=== PATIENT | female | born 1975 | race Caucasian/White ===

== ENCOUNTER → 2018-05-10 | Outpatient (CLI) | payer BC, MEDICARE ==
[2018-05-10 15:38] VITALS: BP 150/100; PULSE 93; RESP 18; TEMP 98.2; BMI 48.4
--- NOTE | 2018-07-04 10:03 | P.PN ---
Subjective Progress Note Date: 05/10/18 DATE OF SERVICE: 05/10/2018 CHIEF COMPLAINT: Morbid obesity. HISTORY OF PRESENT ILLNESS: Naz Christine is a 42-year-old female who comes in with long-standing morbid obesity. As a result of her obesity, she has developed hypertensive heart disease. She has completed medical supervised weight loss. She has completed upper endoscopy. She does report gastroesophageal reflux disease. She presents looking into the gastric bypass. At height of 5 feet 4 inches, his ideal body weight is 144 pounds. Her highest personal weight was 296 pounds. Her body mass index was 50.9. She comes in 281 pounds from 252 pounds, 1 year ago. She has 29 pound weigh gain. Her body mass index is 48.4. She is 137 pounds overweight. PAST MEDICAL HISTORY: 1. Morbid obesity. 2. Body mass index prior 50.9. 3. Osteoarthritis of the knees. 4. Plantar fasciitis 5. Osteoarthritis of the lower back. 6. Gastroesophageal reflux disease 7. Irritable bowel syndrome 8. Obstructive sleep apnea 9. Kidney stones 10. Diabetes type 2 11. Hypothyroidism 12. Attention deficit disorder 13. Depression 14. Bilateral lower extremity neuropathy 15. Memory disorder 16. Hypertensive heart disease. PAST SURGICAL HISTORY: 1. section 2. Cholecystectomy 3. Renal stents 4. Bladder surgery HOME MEDICATIONS: 1. Glucophage 2. Armor thyroid 3. Ritalin 4. Namenda 5. Aricept 6. Celexa ALLERGIES: 1. Codeine 2. Levofloxacin 3. Morphine 4. Sulfa SOCIAL HISTORY: No active tobacco use. Former tobacco use. FAMILY HISTORY: No family history of ulcerative colitis disease or Crohn's disease. Family history of morbid obesity. No reports of stomach or esophageal cancer. Family history of diabetes type 2. She denies stomach or esophageal cancer. No personal or family history of inflammatory bowel disease. She has lupus in her niece. Thyroid cancer. REVIEW OF ORGAN SYSTEMS: CONSTITUTIONAL: At height of 5 feet 4 inches, ideal body weight is 144 pounds. Her highest personal weight was 296 pounds. Her body mass index was 50.9. HEENT: Denies any active troubles with vision or hearing. No troubles with swallowing. ENDOCRINE: Has diabetes. Has hypothyroidism. CARDIOVASCULAR: No reports of palpitations or heart attacks or chest pain. RESPIRATORY: Has daytime somnolence. No asthma. Has sleep apnea. GI: Denies any bright red blood per rectum. No diarrhea or constipation. MUSCULOSKELETAL: Has lower back pain and joint pain. Has osteoarthritis of the knees. NEURO: No headaches. No seizure disorders. PSYCH: Has depression. No suicidal ideation. RHEUMATOLOGIC: No lupus. No rheumatoid arthritis. HEMATOLOGIC: Denies any abnormal bleeding or bruising. No personal history of DVTs. SKIN: No rash. No skin cancer. PHYSICAL EXAM: VITAL SIGNS: Height 5 foot 4 inches, weight 281 pounds. BMI 48.4 Vital Signs Temp 98.2 F 05/10/18 15:31 Pulse 93 05/10/18 15:31 Resp 18 05/10/18 15:31 BP 150/100 05/10/18 15:31 Pulse Ox GENERAL: Well-developed in no acute distress. HEENT: No scleral icterus. Extraocular movements grossly intact. Hears conversational speech. No nasal drainage. NECK: Supple without lymphadenopathy. CHEST: Nonlabored respirations with equal bilateral excursions. CARDIOVASCULAR: Regular rate and regular rhythm. Distal 2+ pulses. ABDOMEN: Obese, soft, nontender, nondistended. MUSCULOSKELETAL: No clubbing, cyanosis. Gross strength 5/5 distal lower extremities. No pre-tibial pitting edema. NEURO: No focal or lateralizing signs. Cranial nerves 2 through 12 grossly within normal limits. PSYCH: Appropriate affect. Alert and oriented to person, place and time. SKIN: Good skin turgor. Well perfused. STUDIES: EGD Findings from [place] shows Hill grade 2 and chronic gastritis. PATHOLOGY: No H. pylori gastritis LABS: LFTs elevated. Vitamin D low. TSH low. ASSESSMENT: 1. Morbid obesity due to excess calories. 2. Body mass index prior 50.9 down to 48.4. 3. Osteoarthritis of the knees. 4. Plantar fasciitis 5. Osteoarthritis of the lower back. 6. Gastroesophageal reflux disease 7. Irritable bowel syndrome 8. Obstructive sleep apnea 9. Kidney stones 10. Diabetes type 2 11. Hypothyroidism 12. Attention deficit disorder 13. Depression 14. Bilateral lower extremity neuropathy 15. Memory disorder 16. Hypertensive heart disease 17. Vitamin D deficiency. PLAN: 1. Bariatric options between a sleeve, band and a Mino-en-Y gastric bypass were reviewed in detail. The patient elected for a gastric bypass. Robotic assisted approach described. 2. The [place] [facility] Data was also reviewed with benefits and risks as described. 3. An 8 page second-generation bariatric consent form was reviewed in detail including potential of bleeding, infection, leaks, adequate weight loss, nutritional deficiencies which the patient demonstrated understanding of the risks. 4. A 2 week high-protein low caloric 800 kcal diet described to address hepatomegaly. 5. Preoperative labs including complete metabolic panel and CBC with type and screen recommended. 6. DVT prophylaxis per [place] [facility]. 7. Antibiotic prophylaxis. 8. Inpatient hospitalization anticipated for more than 2 nights. 9. All questions and concerns were addressed with the patient. Objective - Vital Signs Vital signs: Vital Signs Temp 98.2 F 05/10/18 15:31 Pulse 93 05/10/18 15:31 Resp 18 05/10/18 15:31 BP 150/100 05/10/18 15:31 Pulse Ox
== END | disposition home or self-care (01) ==
LOC: BARWHC3 14:43
PROVIDERS: ATTEND Surgery Plastic and Reconstructive Surgery
DX: E66.01 Morbid (severe) obesity due to excess calories (principal); M17.0 Bilateral primary osteoarthritis of knee; M72.2 Plantar fascial fibromatosis; M47.816 Spondylosis without myelopathy or radiculopathy, lumbar region; K21.9 Gastro-esophageal reflux disease without esophagitis; K58.9 Irritable bowel syndrome, unspecified; G47.33 Obstructive sleep apnea (adult) (pediatric); N20.0 Calculus of kidney; E11.9 Type 2 diabetes mellitus without complications; E03.9 Hypothyroidism, unspecified; F98.8 Other specified behavioral and emotional disorders with onset usually occurring in childhood and adolescence; F32.9 Major depressive disorder, single episode, unspecified; G62.9 Polyneuropathy, unspecified; I11.9 Hypertensive heart disease without heart failure; E55.9 Vitamin D deficiency, unspecified; R41.3 Other amnesia; Z68.42 Body mass index [BMI] 45.0-49.9, adult; Z87.891 Personal history of nicotine dependence; Z79.84 Long term (current) use of oral hypoglycemic drugs; Z79.899 Other long term (current) drug therapy; Z88.1 Allergy status to other antibiotic agents; Z88.2 Allergy status to sulfonamides; Z88.5 Allergy status to narcotic agent
CPT/HCPCS: 99211

== ENCOUNTER → 2018-06-30 | Outpatient (CLI) | payer BC, MEDICARE ==
[2018-06-30 07:31] LABS: Basophils % (A) 1 %; Eosinophils # (A) 0.1 k/uL (0-0.7); Eosinophils % (A) 2 %; HCT 44.4 % (34.0-46.0); HGB 14.8 gm/dL (11.4-16.0); Lymphocytes # (A) 2.8 k/uL (1.0-4.8); Lymphocytes % (A) 41 %; MCH 27.6 pg (25.0-35.0); MCHC 33.4 g/dL (31.0-37.0); MCV 82.8 fL (80.0-100.0); Mean Platelet Volume 6.9; Monocytes # (A) 0.4 k/uL (0-1.0); Monocytes % (A) 6 %; Neutrophils # (A) 3.2 k/uL (1.3-7.7); Neutrophils % (A) 48 %; Platelet Count 272 k/uL (150-450); RBC 5.36 m/uL (3.80-5.40); RDW 13.6 % (11.5-15.5); WBC 6.8 k/uL (3.8-10.6)
[2018-06-30 07:43] LABS: ALT 62 U/L (9-52); AST 39 U/L (14-36); Albumin 4.8 g/dL (3.5-5.0); Alkaline Phosphatase 67 U/L (38-126); Anion Gap 10 mmol/L; Blood Urea Nitrogen 19 mg/dL (7-17); Calcium 9.8 mg/dL (8.4-10.2); Carbon Dioxide 28 mmol/L (22-30); Chloride 102 mmol/L (98-107); Glucose 91 mg/dL (74-99); Potassium 4.2 mmol/L (3.5-5.1); Sodium 140 mmol/L (137-145); Total Protein 7.7 g/dL (6.3-8.2)
== END | disposition home or self-care (01) ==
LOC: LABPAT 07:00
PROVIDERS: ATTEND Surgery Plastic and Reconstructive Surgery
DX: Z01.810 Encounter for preprocedural cardiovascular examination (principal); Z01.812 Encounter for preprocedural laboratory examination
CPT/HCPCS: 80053; 85025; 93005

== ENCOUNTER 2018-07-10 07:00 | Inpatient (IN) | payer BC, MEDICARE ==
--- NOTE | 2018-07-09 14:26 | P.GSHP ---
History of Present Illness H&P Date: 07/10/18 DATE OF SERVICE: 07/10/2018 CHIEF COMPLAINT: Morbid obesity. HISTORY OF PRESENT ILLNESS: Naz Christine is a 42-year-old female who comes in with long-standing morbid obesity. As a result of her obesity, she has developed hypertensive heart disease. She has completed medical supervised weight loss. She has completed upper endoscopy. She does report gastroesophageal reflux disease. She presents looking into the gastric bypass. At height of 5 feet 4 inches, his ideal body weight is 144 pounds. Her highest personal weight was 296 pounds. Her body mass index was 50.9. She comes in 281 pounds from 252 pounds, 1 year ago. She has 29 pound weigh gain. Her body mass index is 48.4. She is 137 pounds overweight. PAST MEDICAL HISTORY: 1. Morbid obesity. 2. Body mass index prior 50.9. 3. Osteoarthritis of the knees. 4. Plantar fasciitis 5. Osteoarthritis of the lower back. 6. Gastroesophageal reflux disease 7. Irritable bowel syndrome 8. Obstructive sleep apnea 9. Kidney stones 10. Diabetes type 2 11. Hypothyroidism 12. Attention deficit disorder 13. Depression 14. Bilateral lower extremity neuropathy 15. Memory disorder 16. Hypertensive heart disease. PAST SURGICAL HISTORY: 1. section 2. Cholecystectomy 3. Renal stents 4. Bladder surgery HOME MEDICATIONS: 1. Glucophage 2. Armor thyroid 3. Ritalin 4. Namenda 5. Aricept 6. Celexa ALLERGIES: 1. Codeine 2. Levofloxacin 3. Morphine 4. Sulfa SOCIAL HISTORY: No active tobacco use. Former tobacco use. FAMILY HISTORY: No family history of ulcerative colitis disease or Crohn's disease. Family history of morbid obesity. No reports of stomach or esophageal cancer. Family history of diabetes type 2. She denies stomach or esophageal cancer. No personal or family history of inflammatory bowel disease. She has lupus in her niece. Thyroid cancer. REVIEW OF ORGAN SYSTEMS: CONSTITUTIONAL: At height of 5 feet 4 inches, ideal body weight is 144 pounds. Her highest personal weight was 296 pounds. Her body mass index was 50.9. HEENT: Denies any active troubles with vision or hearing. No troubles with swallowing. ENDOCRINE: Has diabetes. Has hypothyroidism. CARDIOVASCULAR: No reports of palpitations or heart attacks or chest pain. RESPIRATORY: Has daytime somnolence. No asthma. Has sleep apnea. GI: Denies any bright red blood per rectum. No diarrhea or constipation. MUSCULOSKELETAL: Has lower back pain and joint pain. Has osteoarthritis of the knees. NEURO: No headaches. No seizure disorders. PSYCH: Has depression. No suicidal ideation. RHEUMATOLOGIC: No lupus. No rheumatoid arthritis. HEMATOLOGIC: Denies any abnormal bleeding or bruising. No personal history of DVTs. SKIN: No rash. No skin cancer. PHYSICAL EXAM: VITAL SIGNS: Height 5 foot 4 inches, weight 281 pounds. BMI 48.4 GENERAL: Well-developed in no acute distress. HEENT: No scleral icterus. Extraocular movements grossly intact. Hears conversational speech. No nasal drainage. NECK: Supple without lymphadenopathy. CHEST: Nonlabored respirations with equal bilateral excursions. CARDIOVASCULAR: Regular rate and regular rhythm. Distal 2+ pulses. ABDOMEN: Obese, soft, nontender, nondistended. MUSCULOSKELETAL: No clubbing, cyanosis. Gross strength 5/5 distal lower ex tremities. No pre-tibial pitting edema. NEURO: No focal or lateralizing signs. Cranial nerves 2 through 12 grossly within normal limits. PSYCH: Appropriate affect. Alert and oriented to person, place and time. SKIN: Good skin turgor. Well perfused. STUDIES: EGD Findings from [place] shows Hill grade 2 and chronic gastritis. PATHOLOGY: No H. pylori gastritis LABS: LFTs elevated. Vitamin D low. TSH low. ASSESSMENT: 1. Morbid obesity due to excess calories. 2. Body mass index prior 50.9 down to 48.4. 3. Osteoarthritis of the knees. 4. Plantar fasciitis 5. Osteoarthritis of the lower back. 6. Gastroesophageal reflux disease 7. Irritable bowel syndrome 8. Obstructive sleep apnea 9. Kidney stones 10. Diabetes type 2 11. Hypothyroidism 12. Attention deficit disorder 13. Depression 14. Bilateral lower extremity neuropathy 15. Memory disorder 16. Hypertensive heart disease 17. Vitamin D deficiency. PLAN: 1. Bariatric options between a sleeve, band and a Mino-en-Y gastric bypass were reviewed in detail. The patient elected for a gastric bypass. Robotic assisted approach described. 2. The [place] [facility] Data was also reviewed with benefits and risks as described. 3. An 8 page second-generation bariatric consent form was reviewed in detail including potential of bleeding, infection, leaks, adequate weight loss, nutritional deficiencies which the patient demonstrated understanding of the risks. 4. A 2 week high-protein low caloric 800 kcal diet described to address hepatomegaly. 5. Preoperative labs including complete metabolic panel and CBC with type and screen recommended. 6. DVT prophylaxis per [place] [facility]. 7. Antibiotic prophylaxis. 8. Inpatient hospitalization anticipated for more than 2 nights. 9. All questions and concerns were addressed with the patient. Past Medical History Past Medical History: Diabetes Mellitus, GERD/Reflux, Memory Impairment, N eurologic Disorder, Osteoarthritis (OA), Sleep Apnea/CPAP/BIPAP, Thyroid Disorder Additional Past Medical History / Comment(s): Takes Namenda and Ritalin to help her focus due to memory loss-cognitive impariment. , hx. arrythmia & frequent PVC's, kidney/uric acid stones, bilateral leg neuropathy, joint pain, uses CPAP, has severe TMJ, fatty liver History of Any Multi-Drug Resistant Organisms: None Reported Past Surgical History: Bladder Surgery, Section, Cholecystectomy Additional Past Surgical History / Comment(s): C/S x5, bladder surgery with mesh implant, renal stents, EGD Past Anesthesia/Blood Transfusion Reactions: No Reported Reaction Additional Past Anesthesia/Blood Transfusion Reaction / Comment(s): No transfusions to date, has severe TMJ, states limited ROM w/jaw-has never had any intubation problems that she has been told or special equipment Smoking Status: Former smoker - Past Family History Mother Family Medical History: Cancer, Coronary Artery Disease (CAD), Diabetes Mellitus, Thyroid Disorder Additional Family Medical History / Comment(s): Type 2 Dm, Piagets Disease, Breast cancer survivor Sister(s) Family Medical History: Diabetes Mellitus, Thyroid Disorder Additional Family Medical History / Comment(s): sister #1: Type 2 DM hypothyroidism. Sister 2: Thyroid cancer (and hyperthyroidism) Father Family Medical History: Cancer, Coronary Artery Disease (CAD) Additional Family Medical History / Comment(s): lung cancer survivor (mesothelioma from asbestos lining ships in [place]) Medications and Allergies Home Medications Medication Instructions Recorded Confirmed Type Citalopram Hydrobromide [CeleXA] 20 mg PO DAILY 03/17/17 06/30/18 History Donepezil [Aricept] 10 mg PO HS 03/17/17 06/30/18 History Memantine [Namenda] 20 mg PO BID 03/17/17 06/30/18 History Methylphenidate HCl [Ritalin] 15 mg PO PC-BRKFST 03/17/17 06/30/18 History Methylphenidate HCl [Ritalin] 15 mg PO PC-LUNCH 03/17/17 06/30/18 History Thyroid,Pork [[place] Thyroid] 180 mg PO DAILY 03/17/17 06/30/18 History metFORMIN HCL [Glucophage] 500 mg PO TID 03/17/17 06/30/18 History Omeprazole [PriLOSEC] 40 mg PO AC-BRKFST 12/12/17 06/30/18 History Allergies Allergy/AdvReac Type Severity Reaction Status Date / Time codeine Allergy Rash/Hives Verified 06/30/18 11:22 levofloxacin [From Levaquin] Allergy Swelling Verified 06/30/18 11:22 morphine Allergy Rash/Hives Verified 06/30/18 11:22 Sulfa (Sulfonamide Allergy Anaphylaxis Verified 06/30/18 11:22 Antibiotics)
[~2018-07-10 07:00] MED LIST: CHLORHEXIDINE GLUCONATE 15 ML CUP MUCOUS MEM ONE; DEXAMETHASONE SOD PHOSPHATE 10 MG/ML 1 ML VIAL IV ONE; ENOXAPARIN 40 MG/0.4 ML SYRINGE SQ STA; LIDOCAINE 1% 20 ML VIAL (10MG/ML) FOR IV START INTRADERMA PRN; MIDAZOLAM 2 MG/2 ML VIAL IV PRN; PANTOPRAZOLE 40 MG/10 ML VIAL IV STA; ceFAZolin 3 GM in SODIUM CHLORIDE 0.9% 100 ML IVPB ONE; fentaNYL (PF) 50 MCG/ML 2 ML AMP IV PRN
[2018-07-10 13:34] LABS: Glucose,Whole Blood 80 mg/dL (75-99)
[2018-07-10] MEDS: LACTATED RINGERS 1,000 ML IV SCH ×2 (14:01→22:02)
[2018-07-10] MEDS ORDERED: ONDANSETRON 4 MG/2 ML VIAL IVP ONE (14:06)
[2018-07-10] MEDS ORDERED: HYDROmorphone (PF) 1 MG/ML ONE (14:45)
[2018-07-10] MEDS ORDERED: MIDAZOLAM 2 MG/2 ML VIAL ONE (14:45)
[2018-07-10] MEDS ORDERED: GLYCOPYRROLATE 0.2 MG/ML 2 ML VIAL ONE (14:45)
[2018-07-10] MEDS ORDERED: PROPOFOL 10 MG/ML 20 ML VIAL IV ONE (14:45)
[2018-07-10] MEDS ORDERED: ONDANSETRON 4 MG/2 ML VIAL ONE (14:45)
[2018-07-10] MEDS ORDERED: fentaNYL (PF) 50 MCG/ML 2 ML AMP ONE (14:45)
[2018-07-10] MEDS ORDERED: NEOSTIGMINE 1 MG/ML 10 ML VIAL ONE (14:45)
[2018-07-10] MEDS ORDERED: SUCCINYLCHOLINE CHLORIDE 100 MG/5 ML SYR IV ONE (14:45)
[2018-07-10] MEDS ORDERED: ROCURONIUM BROMIDE 10 MG/ML 10 ML VIAL IV ONE (14:45)
[2018-07-10] MEDS ORDERED: LIDOCAINE 1% INJ 10MG/ML (20 ML MDV) ONE (14:45)
[2018-07-10] MEDS ORDERED: PHENYLEPHRINE-0.9% NACL SYG 1 MG/10 ML SYRINGE ONE (14:45)
[2018-07-10] MEDS ORDERED: BUPIVACAIN-EPI 0.25%-1:200,000 30 ML VIAL SQ ONE (15:34)
[2018-07-10] MEDS ORDERED: LACTATED RINGERS 1,000 ML IV ONE ×2 (16:35→17:04)
[2018-07-10] MEDS ORDERED: diphenhydrAMINE 50 MG/ML 1 ML VIAL IVP PRN (18:18)
[2018-07-10] MEDS ORDERED: NALOXONE 0.4 MG/ML 1 ML VIAL IV PRN (18:18)
--- NOTE | 2018-07-10 18:25 | P.OP ---
Date of Procedure: 07/10/18 Description of Procedure: SURGEON: IRINA GOMEZ MD PREOPERATIVE DIAGNOSES: 1. Morbid obesity due to excess calories. 2. Body mass index prior 50.9 down to 48.0. 3. Osteoarthritis of the knees. 4. Plantar fasciitis 5. Osteoarthritis of the lower back. 6. Gastroesophageal reflux disease 7. Irritable bowel syndrome 8. Obstructive sleep apnea 9. Kidney stones 10. Diabetes type 2 11. Hypothyroidism 12. Attention deficit disorder 13. Depression 14. Bilateral lower extremity neuropathy 15. Memory disorder 16. Hypertensive heart disease 17. Vitamin D deficiency. POSTOPERATIVE DIAGNOSES: 1. Morbid obesity due to excess calories. 2. Body mass index prior 50.9 down to 48.0. 3. Osteoarthritis of the knees. 4. Plantar fasciitis 5. Osteoarthritis of the lower back. 6. Gastroesophageal reflux disease 7. Irritable bowel syndrome 8. Obstructive sleep apnea 9. Kidney stones 10. Diabetes type 2 11. Hypothyroidism 12. Attention deficit disorder 13. Depression 14. Bilateral lower extremity neuropathy 15. Memory disorder 16. Hypertensive heart disease 17. Vitamin D deficiency. 18. Lower intra-abdominal peritoneal adhesions OPERATION: 1. Robotic assisted da Demian Xi laparoscopic Dante-en-Y gastric bypass, 100 cm antecolic antegastric Dante limb, with 21 mm EEA. 2. Intraoperative esophagogastrojejunoscopy. ANESTHESIA: GETA and local ESTIMATED BLOOD LOSS: 20 mL SPECIMENS REMOVED: None. COMPLICATIONS: NONE. INDICATIONS: Naz Christine is a 42-year-old female who comes in with long- standing morbid obesity. As a result of her obesity, she has developed hypertensive heart disease. She has completed medical supervised weight loss. She presents looking into the gastric bypass. At height of 5 feet 4 inches, his ideal body weight is 144 pounds. Her highest personal weight was 296 pounds. Her body mass index was 50.9. She comes in 270 pounds from 281 pounds, 1 month ago. She has lost 11 pounds in 1 month . Her body mass index is 46.5 She is 112 pounds overweight. She is looking into the gastric bypass. A second-generation bariatric consent form was described in detail including the possibility of protein malnutrition, leaks, gastrojejunal stricture, venous thrombosis, need for further surgery for which she demonstrated understanding. Benefits and risks of the procedure were described at length. Informed consent was obtained. DESCRIPTION: The patient was brought into the operating room theater. She was placed supine. She had received Lovenox subcutaneously for DVT prophylaxis. Additionally she Peridex oral solution as an oral decontaminant was placed per anesthesia. After general induction, the abdomen was prepped and draped in standard sterile fashion. Ioban draping was placed along the abdomen. A robotic da Demian Xi system was prepped and primed. The xiphoid to umbilicus was measured of 26 cm. Incisions were proposed at 15 cm from the xiphoid. Proposed port sites were marked with indelible marker along the anterior axillary line bilaterally, mid clavicular line bilaterally with each port marked 10 cm from each other. The robotic stapler port was marked for the right midclavicular line including along the left midclavicular line. A 5 mm 0 degrees laparoscopic trocar entry was performed along the left upper quadrant. The abdomen was insufflated to 15 mmHg pressure, which she tolerated well. Diagnostic laparoscopy demonstrated no injury to bowel, viscera, or mesentery. The liver was smooth and unremarkable. An 8 mm camera port was placed left lateral to the umbilicus at the epigastrium, 15 cm distal to the xiphoid. Next, 12-mm robot stapler port was placed along the right mid abdomen. An 12 mm port was exchanged along the left upper quadrant. An 8 mm port was placed on the left lateral abdominal wall under direct visualization Please note that the ports were placed 18 to 20 cm away from the target anatomy of the stomach. Care was taken to check that each robotic arm was safely away from collision with the bed or the patient. At the epigastrium, a medium sized Travis liver retractor was placed under direct visualization with the Iron Chicken Vaccinator placed under the right shoulder of the patient. The patient was repositioned in reverse Trendelenburg position at 16-degrees after lowering the bed. The robot was docked over the patient. Using grasper for arm 3, a grasper for arm 1, including vessel sealer for arm 4, the robotic system was docked and primed as described. Instruments were interchanged by the loan assistant including endoscissors, the needle starting gate driver, and stapler. I had sat at the console. Diagnostic laparoscopy demonstrates severe omental to abdominal wall adhesions along the midline from previous multiple sections. As a result, the transverse mesocolon was separately dissected to visualize the ligament of Treitz. Next, the transverse mesocolon was reflected into the upper abdomen after dividing the mesentery and preparing for the jejunojejunostomy portion of the case. The ligament of Treitz was identified and measured 70 cm antegrade and marked using 3-0 Silk. The jejunum was divided at the 60 cm point using 60-mm white loads above the suture measurement. The biliopancreatic limb was held in place. The Dante limb was measured 100 cm in an antegrade fashion to avoid tension along the proposed gastrojejunal anastomosis. At 100 cm along the anti-mesenteric border of the Dante limb, a jejunojejunostomy was proposed whereby enterotomies were created along the biliopancreatic limb including the Dante limb using a Bovie cautery. A stay suture of 3-0 Slik was placed to align and create the anastomosis. The enterotomies along the anti-mesenteric borders were created followed by unidirectional fire from the patient's right side using 60 mm white load Smart technology robotic stapler. The jejunojejunostomy was found to be hemostatic. The enterotomy was closed after horizontal mattress stitch of 3-0 silk used to elevate the enterotomy followed by closure with the robotic stapler 60-mm blue load. The jejunal limb was temporarily tacked along the left upper quadrant. Attention was now brought to the creation of the gastrojejunostomy. Along the lesser curvature of the stomach between the second and third veins, dissection was made along the retrogastric space to allow first firing of the robotic staple. Blue loads of 60 mm green staplers were used to divide the stomach to create the gastric pouch. The patient was then prepared for placement of an Orvil. The patient was Mallampati 4. A 21-mm Orvil was selected for placement by the nurse switchboard wirer. The Orvil tubing was placed anterior to the staple line of the gastric pouch and brought out through the left inferior lateral port. I re-scrubbed into the case. The robotic arms were temporarily undocked. The Orvil was then carefully and successfully navigated with the help of the nurse switchboard wirer into the gastric pouch. The sutures were identified and divided. The tubing was from the 21 mm anvil. As the Orvil had been placed, the blind jejunal limb was brought proximally into the upper abdomen. No torsion was found upon the Dante limb. Minimal tension was identified as the limb was brought along the upper abdomen. The blind jejunal limb was previously opened using endo-scissors with cautery. The 21-mm EEA stapler was brought through the left anterior lateral port site from the left side. The EEA stapler was brought through the open jejunal limb and its needle was deployed at the antimesenteric border where the anvil were mated for approximately 1 minute upon firing. The stapler was removed after irrigating the shaft of the instrument with warm normal saline. Donuts were found to be intact and on both sides and thin along the stomach sides. The da Demian Xi robot arms were then re-docked. I sat at the console. The open jejunal limb defect was closed using 60 mm white loads after releasing any tension from the blind jejunal limb. Care was taken to avoid any long blind limb to avoid candycane syndrome. Reinforcement sutures were placed along the gastrojejunal anastomosis and placed along the 9, 12 and 3 o'clock position using 3-0 Vicryl. The Mcgovern and jejunojejunostomy mesenteric defects were obliterated by her intra-abdominal fat. I then went to the head of the bed to perform the esophagogastrojejunoscopy and a leak test. An Olympus gastroscope was passed along the posterior oropharynx which was unremarkable for any injury to the vocal cords. The scope was passed down to the proximal portion of the pouch, whereby no active bleeding was encountered. Excellent visualization of the gastrojejunostomy anastomosis, including the Dante limb was encountered with endoscopic image obtained. The anastomosis was found to be patent. The gastrointestinal tract was desufflated. No evidence of intraoperative leak was encountered as the gastric pouch and anastomosis were submerged under normal saline solution. The robot was then undocked. I then went back to the bedside of the patient, whereby with coordinated effort of the loan assistant, irrigation was aspirated from the upper abdominal cavity. Tisseel was placed circumferentially over the anastomosis of the gastrojejunostomy. The fascial defect of the EEA stapler was closed using Ramos Traylor and 0 Vicryl. All instruments and pneumoperitoneum were evacuated from the abdominal cavity. The port correlating with the EEA stapler device was cleansed with normal saline solution and hydrogen peroxide. The rest of incisions were reapproximated using 4-0 Monocryl in an interrupted subcuticular fashion. Local anesthetic was infiltrated along the skin for postop analgesia. Liquid glue was applied to the skin. OptiFoam dressing was placed along the EEA stapler site. At the end of the procedure, needle, sponge and instrument count had been verified correct by the garage door technician. She had tolerated the procedure well and was extubated and taken to the postanesthesia unit in stable condition. Intraoperative findings were described to the patient's family who were very pleased with the level of care. Operative Findings: 1. Bypass performed using 100 cm dante limb secondary to avoid increased tension at 150 cm. 2. Reinforcement sutures were placed along the gastrojejunal anastomosis at 9, 12 and 3 o'clock position using 3-0 Polysorb 3. Donuts intact, thin stomach 4. Severe lower abdominal adhesions from previous multiple C-sections undisturbed 5. Total of 9 staple loads, 2 whites, 3 blues, 4 green 60 mm staplers 6. Mallampati 4 requiring 21 mm anvil 7. Biliopancreatic limb 70 cm 8. Copeland defect and jejunojejunostomy defect obliterated by moderate intra- abdominal fat. 9. Leak test negative with gastrojejunal anastomosis patent and hemostatic. 10. No fatty liver disease or hepatomegaly 11. Console time 93 minutes
[2018-07-10] MEDS: ONDANSETRON 4 MG/2 ML VIAL IVP PRN (18:52)
[2018-07-10 19:26] LABS: Glucose,Whole Blood 214 mg/dL (75-99)
[2018-07-10] MEDS ORDERED: INSULIN ASPART (NovoLOG) 100 UNIT/ML VIAL SQ ONE (19:28)
[2018-07-10] MEDS ORDERED: SODIUM CHLORIDE 0.9% 2,000 ML IV ONE ×2 (20:24→22:54)
[2018-07-10] MEDS: ALBUTEROL NEBULIZED 2.5 MG/3 ML INHALATION SCH (21:09)
[2018-07-10] MEDS: INSULIN ASPART (NovoLOG) 100 UNIT/ML VIAL SQ SCH (22:03)
[2018-07-10 22:12] LABS: Basophils # (A) 0.1 k/uL (0-0.2); Basophils % (A) 0 %; Eosinophils # (A) 0.1 k/uL (0-0.7); Eosinophils % (A) 1 %; HCT 33.1 % (34.0-46.0); Hypochromasia Slight; Lymphocytes % (A) 10 %; MCH 27.6 pg (25.0-35.0); MCHC 31.9 g/dL (31.0-37.0); MCV 86.4 fL (80.0-100.0); Mean Platelet Volume 8.6; Monocytes # (A) 0.3 k/uL (0-1.0); Monocytes % (A) 2 %; Neutrophils # (A) 17.8 k/uL (1.3-7.7); Neutrophils % (A) 87 %; Platelet Count 306 k/uL (150-450); RBC 3.83 m/uL (3.80-5.40); RDW 14.8 % (11.5-15.5); WBC 20.5 k/uL (3.8-10.6)
[2018-07-10 22:16] LABS: HGB 10.6 gm/dL (11.4-16.0)
[2018-07-10] MEDS: ACETAMINOPHEN IV (For NPO) 1,000 MG in EMPTY BAG 1 BAG IVPB SCH (22:30)
[2018-07-10] MEDS: 0.9% NACL WITH KCL 20 MEQ/L 1,000 ML IV SCH (22:30)
[2018-07-10] MEDS ORDERED: IOPAMIDOL-300 CONTRAST 30 ML VIAL (ORAL USE) PO PRN (23:05)
--- NOTE | 2018-07-10 23:05 | P.PN ---
Subjective Progress Note Date: 07/10/18 CHIEF COMPLAINT: Morbid obesity HISTORY OF PRESENT ILLNESS: The patient is a 43-year-old female postop day 0 status post gastric bypass. I was notified for persistent hypotension systolic blood pressures of 70s to 80s. Additional IV fluid boluses overnight. Stat hemoglobin demonstrates 10.0. No obvious signs of bleeding. Patient denies any bilateral shoulder pain. No diffuse peritonitis. ROS: No reports of nausea and vomiting. No bowel movements. No fevers or chills. No new chest pain. No productive sputum PHYSICAL EXAM: VITAL SIGNS: Reviewed CONSTITUTIONAL: Well developed and in no acute distress. EYES: Conjuctivae without sclera icterus. Extraocular movements grossly intact. HEAD, EARS, NOSE, THROAT: Moist buccal mucosa. Head is atraumatic, normocephalic. Hears conversational speech. No nasal drainage. NECK: Supple. No thyroidomegaly. RESPIRATORY: Non-labored respirations and equal bilateral excursions. CARDIOVASCULAR: Tachycardia ABDOMEN: Incisions clean dry and intact. Soft. No peritonitis. Minimal tenderness left upper quadrant incision MUSCULOSKELETAL: No gross deformity of the lower extremities noted. No clubbing. No cyanosis. SKIN: Good skin turgor. Well perfused. NEUROLOGIC: Cranial nerves I through XII grossly intact. No focal or lateralizing signs. PSYCH: Somnolent and lethargic. CLINCAL LABS: White blood cell count elevated. Hemoglobin less than 11.0 ASSESSMENT: 1. Morbid obesity status post gastric bypass PLAN: 1. Additional 2 L normal saline bolus. 2. Patient typed and screened, may need blood. 3. Possible CT of the abdomen pelvis for persistent hypotension 4. Lovenox discontinued. Only SCDs for risk of bleeding. Objective - Vital Signs Vital signs: Vital Signs Temp 97.9 F 07/10/18 18:25 Pulse 99 07/10/18 19:10 Resp 16 07/10/18 19:10 BP 109/70 07/10/18 19:10 Pulse Ox 98 07/10/18 21:10 Intake & Output 07/10/18 07/10/18 07/11/18 06:59 18:59 06:59 Intake Total 2500 500 Output Total 270 225 Balance 2230 275 Intake: IV 2500 500 Output: Urine 250 225 Estimated Blood Loss 20 - Labs CBC & Chem 7: 07/10/18 20:06 Labs: Abnormal Lab Results - Last 24 Hours (Table) 07/10/18 07/10/18 Range/Units 19:23 20:06 WBC 20.5 H (3.8-10.6) k/uL Hgb 10.6 L D (11.4-16.0) gm/dL Hct 33.1 L (34.0-46.0) % Neutrophils # 17.8 H (1.3-7.7) k/uL POC Glucose (mg/dL) 214 H (75-99) mg/dL Assessment and Plan (1) Morbid obesity due to excess calories Current Visit: Yes Status: Acute Code(s): E66.01 - MORBID (SEVERE) OBESITY DUE TO EXCESS CALORIES SNOMED Code(s): 854010773 (2) Morbid obesity with BMI of 45.0-49.9, adult Current Visit: Yes Status: Acute Code(s): E66.01 - MORBID (SEVERE) OBESITY DUE TO EXCESS CALORIES; Z68.42 - BODY MASS INDEX (BMI) 45.0-49.9, ADULT SNOMED Code(s): 418506014 (3) Hypotension Current Visit: Yes Status: Acute Code(s): I95.9 - HYPOTENSION, UNSPECIFIED SNOMED Code(s): 16912808
--- NOTE | 2018-07-10 23:46 | P.PN ---
Progress Note - Text Progress Note Date: 07/10/18 I personally traveled to the computed tomography scan with the patient to lookat CT studiesindependently. Fluid identified around the liver however minimal around the spleenwhere close dissection was performed. As suspected fluid in the pelvis secondary to irrigation over 500 mL saline used. With the severity of her hypotension, we'll start blood. No surgical need for exploration at this time. May need pressors including FFP for dilutional hemoglobin with dysfunctional platelets and cofactors from multiple medicationsthat exacerbate bleeding with Lovenox. Bed rest and interim. Lovenox discontinued. Transferred to the critical care unit for severe hypotension and critical care management. Critical care time 42 minutes
[2018-07-11] MEDS ORDERED: SIMETHICONE 40 MG/0.6 ML DROPS 2,000 MG/30 ML BOTTLE PO SCH
--- NOTE | 2018-07-11 00:02 | CT ---
EXAM: CT Abdomen and Pelvis With Intravenous Contrast CLINICAL HISTORY: ITS.REASON CT Reason: s/p gastric bypass new hypotension TECHNIQUE: Axial computed tomography images of the abdomen and pelvis with intravenous contrast. CTDI is 41.3 [place] [address].7 mGy-cm. This CT exam was performed using one or more of the following dose reduction techniques: automated exposure control, adjustment of the mA and/or kV according to patient size, and/or use of iterative reconstruction technique. COMPARISON: No relevant prior studies available. FINDINGS: Lung bases: Unremarkable. No mass. No consolidation. ABDOMEN: Liver: Blood products of mixed density surrounding the liver, moderate volume. Gallbladder and bile ducts: Prior cholecystectomy. No ductal dilation. Pancreas: Pancreas is unremarkable. No ductal dilation. Spleen: Unremarkable. No splenomegaly. Adrenals: Unremarkable. No mass. Kidneys and ureters: No obstructive uropathy. Stomach and bowel: Expected gastric bypass other postsurgical changes. No obstruction. No mucosal thickening. PELVIS: Appendix: No findings to suggest acute appendicitis. Bladder: Unremarkable. No mass. Reproductive: Unremarkable as visualized. ABDOMEN and PELVIS: Intraperitoneal space: Heterogeneous density blood products also seen in the pelvis, moderate volume. Free intraperitoneal air likely from recent abdominal surgery. Bones/joints: No acute fracture. No dislocation. Soft tissues: Unremarkable. Vasculature: Unremarkable. No abdominal aortic aneurysm. Lymph nodes: Unremarkable. No enlarged lymph nodes. IMPRESSION: Moderate volume hemoperitoneum suspected, located in the perihepatic region and pelvis. Limited assessment for active bleeding as it was not performed in the arterial phase. Pneumoperitoneum, likely residua of recent abdominal surgery. <MYCVCSECTION> Critical Value Communications 07/11/18 00:11 Call Nurse SHELTON Cedillo on 07/11 00:12 (-04:00)
[2018-07-11] MEDS ORDERED: NALOXONE 0.4 MG/ML 1 ML VIAL IV PRN (00:07)
--- NOTE | 2018-07-11 00:07 | P.PN ---
Progress Note - Text Progress Note Date: 07/11/18 ICU was contacted. Charge nurse from ICU floor came to assess patient. After transfer back to roomfrom computed tomography scan, systolic blood pressures prior were 60s over 40s. Now blood pressure 110s to 120s over 80s. As a result of improvement of vital signs cycled 4 with persistent blood pressure over 100s systolic, blood products discontinued. Transfer to ICU discontinued. We'll continue management on medical garza. For pain, fentanyl [employer] to avoid cardiac depression with morphine and Dilaudid. Additionally, computed tomography scan personally reviewed and independently reviewed demonstrating no leaks. On exam, patient has no peritoneal signs. Urine is clear and urine output over 30 per hour.
[2018-07-11] MEDS: SODIUM CHLORIDE 0.9% IV PRN ×3 (01:00→17:35)
[2018-07-11] MEDS: FENTANYL IV PRN ×3 (01:00→17:35)
[2018-07-11] MEDS: ceFAZolin 3 GM in SODIUM CHLORIDE 0.9% 100 ML IVPB SCH ×3 (01:36→16:42)
[2018-07-11] MEDS: 0.9% NACL WITH KCL 20 MEQ/L 1,000 ML IV SCH ×2 (02:15→09:04)
[2018-07-11] MEDS: ACETAMINOPHEN IV (For NPO) 1,000 MG in EMPTY BAG 1 BAG IVPB SCH ×3 (05:06→18:12)
[2018-07-11] MEDS: SIMETHICONE 40 MG/0.6 ML DROPS 2,000 MG/30 ML BOTTLE PO SCH ×3 (05:06→17:12)
[2018-07-11 07:26] LABS: Glucose,Whole Blood 199 mg/dL (75-99)
[2018-07-11] MEDS: 1: MVI, ADULT NO.4 WITH VIT K 10 ML, THIAMINE 100 MG, FOLIC ACID 1 MG, POTASSIUM CHLORID IV SCH ×6 (08:12)
[2018-07-11] MEDS: PANTOPRAZOLE 40 MG/10 ML VIAL IV SCH (08:12)
[2018-07-11] MEDS: INSULIN ASPART (NovoLOG) 100 UNIT/ML VIAL SQ SCH ×3 (08:13→17:15)
[2018-07-11 08:29] LABS: African American GFR (CKD) >90 (>60 ml/min/1.73 sqM); Anion Gap 4 mmol/L; Blood Urea Nitrogen 10 mg/dL (7-17); Calcium 7.3 mg/dL (8.4-10.2); Carbon Dioxide 25 mmol/L (22-30); Chloride 112 mmol/L (98-107); Glucose 180 mg/dL (74-99); Magnesium 1.4 mg/dL (1.6-2.3); Phosphorus 1.7 mg/dL (2.5-4.5); Potassium 3.8 mmol/L (3.5-5.1); Sodium 141 mmol/L (137-145)
[2018-07-11] MEDS: ALBUTEROL NEBULIZED 2.5 MG/3 ML INHALATION SCH ×4 (08:38→20:57)
[2018-07-11 08:55] LABS: Basophils % (A) 0 %; Eosinophils # (A) 0.1 k/uL (0-0.7); Eosinophils % (A) 1 %; Lymphocytes # (A) 1.4 k/uL (1.0-4.8); Lymphocytes % (A) 11 %; MCH 27.5 pg (25.0-35.0); MCHC 32.6 g/dL (31.0-37.0); MCV 84.5 fL (80.0-100.0); Monocytes # (A) 0.6 k/uL (0-1.0); Monocytes % (A) 4 %; Neutrophils # (A) 10.7 k/uL (1.3-7.7); Neutrophils % (A) 84 %; Platelet Count 219 k/uL (150-450); RBC 2.84 m/uL (3.80-5.40); RDW 15.3 % (11.5-15.5); WBC 12.8 k/uL (3.8-10.6)
[2018-07-11 09:00] LABS: HGB 7.8 gm/dL (11.4-16.0)
[2018-07-11] MEDS ORDERED: ENOXAPARIN 40 MG/0.4 ML SYRINGE SQ SCH (09:00)
[2018-07-11] MEDS: LACTATED RINGERS 1,000 ML IV SCH (09:04)
[2018-07-11] MEDS ORDERED: Phosphorus Replacement Protoco 1 EACH MISC MISCELLANE PRN (10:00)
[2018-07-11 11:34] LABS: Glucose,Whole Blood 159 mg/dL (75-99)
[2018-07-11] MEDS: MAGNESIUM SULFATE-D5W PMX 1 GM in DEXTROSE/WATER 1 100ML.BAG IVPB SCH ×4 (11:34→19:30)
[2018-07-11 14:11] VITALS: BMI 47.9
[2018-07-11] MEDS: POTASSIUM PHOSPHATE 10 MMOL in SODIUM CHLORIDE 0.9% 250 ML IV SCH ×3 (14:20→23:45)
[2018-07-11 14:58] LABS: HCT 23.3 % (34.0-46.0); HGB 7.7 gm/dL (11.4-16.0); MCH 28.2 pg (25.0-35.0); MCHC 33.1 g/dL (31.0-37.0); MCV 85.2 fL (80.0-100.0); Mean Platelet Volume 7.4; Platelet Count 221 k/uL (150-450); RBC 2.74 m/uL (3.80-5.40); RDW 14.9 % (11.5-15.5); WBC 12.2 k/uL (3.8-10.6)
[2018-07-11 16:53] LABS: Glucose,Whole Blood 190 mg/dL (75-99)
[2018-07-11] MEDS ORDERED: SODIUM CHLORIDE 0.9% 1,000 ML IV ONE (19:32)
--- NOTE | 2018-07-11 19:34 | P.PN ---
Progress Note - Text Progress Note Date: 07/11/18 Patient re-evaluated this evening. She denies any diffuse abdominal pain. She has dizziness upon sitting up. Hgb at 7.7 from 10 mg/dL yesterday. Recommend iron infusion, normal saline bolus, and bariatric clears. May need blood pending CBC and presence of symptomatic anemia.
[2018-07-11 20:52] LABS: Glucose,Whole Blood 176 mg/dL (75-99)
[2018-07-11] MEDS: SODIUM FERRIC GLUCONAT-SUCROSE 125 MG in SODIUM CHLORIDE 0.9% 100 ML IVPB SCH (21:32)
[2018-07-12] MEDS: 1: MVI, ADULT NO.4 WITH VIT K 10 ML, THIAMINE 100 MG, FOLIC ACID 1 MG, POTASSIUM CHLORID IV SCH ×18 (00:19→10:31)
[2018-07-12] MEDS: INSULIN ASPART (NovoLOG) 100 UNIT/ML VIAL SQ SCH ×5 (00:19→20:36)
[2018-07-12 00:58] LABS: Iron Saturation 5.88 (12.00-45.00)
[2018-07-12] MEDS: ceFAZolin 3 GM in SODIUM CHLORIDE 0.9% 100 ML IVPB SCH ×4 (02:09→23:43)
[2018-07-12] MEDS: SIMETHICONE 40 MG/0.6 ML DROPS 2,000 MG/30 ML BOTTLE PO SCH ×4 (04:16→18:36)
[2018-07-12 07:13] LABS: Glucose,Whole Blood 138 mg/dL (75-99)
--- NOTE | 2018-07-12 07:27 | P.PN ---
<AdkinsMara Vito - Last Filed: 07/12/18 07:27> Subjective Progress Note Date: 07/11/18 CHIEF COMPLAINT: Morbid obesity HISTORY OF PRESENT ILLNESS: 43-year-old female who underwent Mino-en-Y gastric bypass. POD #1. Patient was hypotensive postoperatively. She was gi abbey fluid boluses and her blood pressure has stabilized. Patient reports her pain is tolerable at this time. She is currently utilizing a fentanyl [employer]GEANT. Denies nausea or vomiting. Patient encouraged to use incentive spirometer 10 times an hour. WBC 12.8. Hemoglobin 7.8. Potassium 3.8. Phosphorus 1.7. Magnesium 1.4. PHYSICAL EXAM: VITAL SIGNS: Reviewed. GENERAL: Well-developed in no acute distress. HEENT: No sclera icterus. Extraocular movements grossly intact. Moist buccal mucosa. Head is atraumatic, normocephalic. ABDOMEN: Soft. Nondistended. Appropriate surgical tenderness. Incisions clean dry and intact without drainage. NEUROLOGIC: Alert and oriented. Cranial nerves II through XII grossly intact. ASSESSMENT: 1. Morbid obesity due to excess calories. 2. Body mass index prior 50.9 down to 48.4. 3. Osteoarthritis of the knees. 4. Plantar fasciitis 5. Osteoarthritis of the lower back. 6. Gastroesophageal reflux disease 7. Irritable bowel syndrome 8. Obstructive sleep apnea 9. Kidney stones 10. Diabetes type 2 11. Hypothyroidism 12. Attention deficit disorder 13. Depression 14. Bilateral lower extremity neuropathy 15. Memory disorder 16. Hypertensive heart disease 17. Vitamin D deficiency. 18. Postoperative hypotension, an unexpected but potential outcome of surgery, resolved PLAN: 1. Clear liquid diet 2. Lovenox DC. Continue SCDs for DVT prophylaxis 3. Limited activity today. PT/OT on consult. 4. Replace magnesium and phosphorus 5. Incentive spirometry encouraged 6. Continue Mazariegos catheter today 7. Continue fentanyl [employer]GE[employer] 8. Accurate I&O 9. Repeat hemoglobin this afternoon Nurse practitioner note has been reviewed by physician. Signing provider agrees with the documented findings, assessment, and plan of care. Objective - Vital Signs Vital signs: Vital Signs Temp 97.6 F 07/12/18 01:23 Pulse 113 H 07/12/18 01:23 Resp 16 07/12/18 01:23 BP 96/67 07/12/18 01:23 Pulse Ox 95 07/12/18 01:23 Intake & Output 07/11/18 07/12/18 07/12/18 18:59 06:59 18:59 Intake Total 800 1875 Output Total 400 1100 Balance 400 775 Weight 122.924 kg Intake: Intake, IV Titration 800 1875 Amount 0.9% NaCl with KCl 20 Meq 300 /l 1,000 ml @ 150 mls/hr IV .Q6H40M [facility] Rx#: [id number] ACETAMINOPHEN IV (For NPO 200 ) 1,000 mg In Empty Bag 1 bag @ 400 mls/hr IVPB Q6HR [facility] Rx#:[id number] Magnesium Sulfate-D5w Pmx 400 1 gm In Dextrose/Water 1 100ml.bag @ 100 mls/hr IVPB Q1H [facility] Rx#: [id number] Potassium Phosphate 10 250 mmol In Sodium Chloride 0 .9% 250 ml @ 125 mls/hr IV Q2H [facility] Rx#:[id number] Sodium Chloride 0.9% 1, 1000 000 ml @ 999 mls/hr IV . Q1H1M [facility] Rx#:[id number] Sodium Ferric Gluconat- 125 Sucrose 125 mg In Sodium Chloride 0.9% 100 ml @ 100 mls/hr IVPB Q24H [facility] Rx#:[id number] ceFAZolin 3 gm In Sodium 200 200 Chloride 0.9% 100 ml @ 200 mls/hr IVPB Q8HR [facility] Rx#:[id number] Output: Urine 400 1100 Other: Voiding Method Indwelling Catheter Indwelling Catheter - Labs CBC & Chem 7: 07/11/18 14:40 07/11/18 07:38 Labs: Abnormal Lab Results - Last 24 Hours (Table) 07/11/18 07/11/18 07/11/18 Range/Units 07:14 07:38 07:38 WBC 12.8 H (3.8-10.6) k/uL RBC 2.84 L (3.80-5.40) m/uL Hgb 7.8 L D (11.4-16.0) gm/dL Hct 24.0 L (34.0-46.0) % Neutrophils # 10.7 H (1.3-7.7) k/uL Chloride 112 H (98-107) mmol/L Creatinine 0.50 L (0.52-1.04) mg/dL Glucose 180 H (74-99) mg/dL POC Glucose (mg/dL) 199 H (75-99) mg/dL Calcium 7.3 L (8.4-10.2) mg/dL Phosphorus 1.7 L (2.5-4.5) mg/dL Magnesium 1.4 L (1.6-2.3) mg/dL Iron (50-170) ug/dL Iron Saturation (12.00-45.00) 07/11/18 07/11/18 07/11/18 Range/Units 11:22 14:40 14:40 WBC 12.2 H (3.8-10.6) k/uL RBC 2.74 L (3.80-5.40) m/uL Hgb 7.7 L (11.4-16.0) gm/dL Hct 23.3 L (34.0-46.0) % Neutrophils # (1.3-7.7) k/uL Chloride (98-107) mmol/L Creatinine (0.52-1.04) mg/dL Glucose (74-99) mg/dL POC Glucose (mg/dL) 159 H (75-99) mg/dL Calcium (8.4-10.2) mg/dL Phosphorus (2.5-4.5) mg/dL Magnesium (1.6-2.3) mg/dL Iron 14 L (50-170) ug/dL Iron Saturation 5.88 L (12.00-45.00) 07/11/18 07/11/18 07/12/18 Range/Units 16:38 20:41 07:01 WBC (3.8-10.6) k/uL RBC (3.80-5.40) m/uL Hgb (11.4-16.0) gm/dL Hct (34.0-46.0) % Neutrophils # (1.3-7.7) k/uL Chloride (98-107) mmol/L Creatinine (0.52-1.04) mg/dL Glucose (74-99) mg/dL POC Glucose (mg/dL) 190 H 176 H 138 H (75-99) mg/dL Calcium (8.4-10.2) mg/dL Phosphorus (2.5-4.5) mg/dL Magnesium (1.6-2.3) mg/dL Iron (50-170) ug/dL Iron Saturation (12.00-45.00) <Violet Barahona N - Last Filed: 07/12/18 11:42> Objective - Vital Signs Vital signs: Vital Signs Temp 98.6 F 07/12/18 10:50 Pulse 123 H 07/12/18 10:50 Resp 18 07/12/18 10:50 BP 101/61 07/12/18 10:50 Pulse Ox 96 07/12/18 09:42 Intake & Output 07/11/18 07/12/18 07/12/18 18:59 06:59 18:59 Intake Total 800 1875 0 Output Total 400 1100 Balance 400 775 0 Weight 122.924 kg Intake: Intake, IV Titration 800 1875 Amount 0.9% NaCl with KCl 20 Meq 300 /l 1,000 ml @ 150 mls/hr IV .Q6H40M [facility] Rx#: [id number] ACETAMINOPHEN IV (For NPO 200 ) 1,000 mg In Empty Bag 1 bag @ 400 mls/hr IVPB Q6HR [facility] Rx#:[id number] Magnesium Sulfate-D5w Pmx 400 1 gm In Dextrose/Water 1 100ml.bag @ 100 mls/hr IVPB Q1H [facility] Rx#: [id number] Potassium Phosphate 10 250 mmol In Sodium Chloride 0 .9% 250 ml @ 125 mls/hr IV Q2H [facility] Rx#:[id number] Sodium Chloride 0.9% 1, 1000 000 ml @ 999 mls/hr IV . Q1H1M [facility] Rx#:[id number] Sodium Ferric Gluconat- 125 Sucrose 125 mg In Sodium Chloride 0.9% 100 ml @ 100 mls/hr IVPB Q24H [facility] Rx#:[id number] ceFAZolin 3 gm In Sodium 200 200 Chloride 0.9% 100 ml @ 200 mls/hr IVPB Q8HR [facility] Rx#:[id number] Blood Product 0 Rc Irr As1 Unit 0 [id number] Output: Urine 400 1100 Other: Voiding Method Indwelling Catheter Indwelling Catheter - Labs CBC & Chem 7: 07/12/18 07:10 07/12/18 07:10 Labs: Abnormal Lab Results - Last 24 Hours (Table) 07/10/18 07/11/18 07/11/18 Range/Units 14:00 14:40 14:40 WBC 12.2 H (3.8-10.6) k/uL RBC 2.74 L (3.80-5.40) m/uL Hgb 7.7 L (11.4-16.0) gm/dL Hct 23.3 L (34.0-46.0) % Chloride (98-107) mmol/L BUN (7-17) mg/dL Creatinine (0.52-1.04) mg/dL Glucose (74-99) mg/dL POC Glucose (mg/dL) (75-99) mg/dL Calcium (8.4-10.2) mg/dL Iron 14 L (50-170) ug/dL Iron Saturation 5.88 L (12.00-45.00) Crossmatch See Detail 07/11/18 07/11/18 07/12/18 Range/Units 16:38 20:41 07:01 WBC (3.8-10.6) k/uL RBC (3.80-5.40) m/uL Hgb (11.4-16.0) gm/dL Hct (34.0-46.0) % Chloride (98-107) mmol/L BUN (7-17) mg/dL Creatinine (0.52-1.04) mg/dL Glucose (74-99) mg/dL POC Glucose (mg/dL) 190 H 176 H 138 H (75-99) mg/dL Calcium (8.4-10.2) mg/dL Iron (50-170) ug/dL Iron Saturation (12.00-45.00) Crossmatch 07/12/18 07/12/18 Range/Units 07:10 07:10 WBC 12.4 H (3.8-10.6) k/uL RBC 2.17 L (3.80-5.40) m/uL Hgb 6.1 L* D (11.4-16.0) gm/dL Hct 18.5 L* (34.0-46.0) % Chloride 111 H (98-107) mmol/L BUN 5 L (7-17) mg/dL Creatinine 0.47 L (0.52-1.04) mg/dL Glucose 126 H (74-99) mg/dL POC Glucose (mg/dL) (75-99) mg/dL Calcium 7.3 L (8.4-10.2) mg/dL Iron (50-170) ug/dL Iron Saturation (12.00-45.00) Crossmatch Assessment and Plan (1) Morbid obesity due to excess calories Current Visit: Yes Status: Acute Code(s): E66.01 - MORBID (SEVERE) OBESITY DUE TO EXCESS CALORIES SNOMED Code(s): 477696187 (2) Morbid obesity with BMI of 45.0-49.9, adult Current Visit: Yes Status: Acute Code(s): E66.01 - MORBID (SEVERE) OBESITY DUE TO EXCESS CALORIES; Z68.42 - BODY MASS INDEX (BMI) 45.0-49.9, ADULT SNOMED Code(s): 776028864 (3) Hypotension Current Visit: Yes Status: Acute Code(s): I95.9 - HYPOTENSION, UNSPECIFIED SNOMED Code(s): 33190079
[2018-07-12 07:43] LABS: African American GFR (CKD) >90 (>60 ml/min/1.73 sqM); Anion Gap 2 mmol/L; Blood Urea Nitrogen 5 mg/dL (7-17); Calcium 7.3 mg/dL (8.4-10.2); Carbon Dioxide 29 mmol/L (22-30); Chloride 111 mmol/L (98-107); Glucose 126 mg/dL (74-99); Magnesium 2.2 mg/dL (1.6-2.3); Potassium 3.7 mmol/L (3.5-5.1); Sodium 142 mmol/L (137-145)
[2018-07-12 07:59] LABS: MCH 28.1 pg (25.0-35.0); MCHC 32.8 g/dL (31.0-37.0); MCV 85.5 fL (80.0-100.0); Mean Platelet Volume 7.6; Platelet Count 198 k/uL (150-450); RBC 2.17 m/uL (3.80-5.40); WBC 12.4 k/uL (3.8-10.6)
[2018-07-12 08:10] LABS: HCT 18.5 % (34.0-46.0); HGB 6.1 gm/dL (11.4-16.0)
[2018-07-12] MEDS: LACTATED RINGERS 1,000 ML IV SCH (08:14)
[2018-07-12] MEDS: SODIUM CHLORIDE 0.9% IV PRN (08:53)
[2018-07-12] MEDS: FENTANYL IV PRN (08:53)
[2018-07-12] MEDS: ALBUTEROL NEBULIZED 2.5 MG/3 ML INHALATION SCH ×4 (09:41→20:47)
[2018-07-12] MEDS: PANTOPRAZOLE 40 MG/10 ML VIAL IV SCH (10:29)
--- NOTE | 2018-07-12 11:40 | P.PN ---
<JedMara Padron - Last Filed: 07/12/18 11:35> Subjective Progress Note Date: 07/12/18 CHIEF COMPLAINT: Morbid obesity HISTORY OF PRESENT ILLNESS: 43-year-old female who underwent Mino-en-Y gastric bypass. POD #2. Patient examined this morning at the bedside. Patient states her pain is tolerable. Currently rating 2/10. 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 Patient is tolerating small amounts of clear liquids. Denies nausea or vomiting. Patient encouraged to use incentive spirometer 10 times an hour. BP 101/61. Remains tachycardic. Afebrile. Hemoglobin 6.1. WBC 12.4 PHYSICAL EXAM: VITAL SIGNS: Reviewed. GENERAL: Well-developed in no acute distress. HEENT: No sclera icterus. Extraocular movements grossly intact. Moist buccal mucosa. Head is atraumatic, normocephalic. ABDOMEN: Soft. Nondistended. Appropriate surgical tenderness. Incisions clean dry and intact without drainage. NEUROLOGIC: Alert and oriented. Cranial nerves II through XII grossly intact. ASSESSMENT: 1. Morbid obesity due to excess calories. 2. Body mass index prior 50.9 down to 48.4. 3. Osteoarthritis of the knees. 4. Plantar fasciitis 5. Osteoarthritis of the lower back. 6. Gastroesophageal reflux disease 7. Irritable bowel syndrome 8. Obstructive sleep apnea 9. Kidney stones 10. Diabetes type 2 11. Hypothyroidism 12. Attention deficit disorder 13. Depression 14. Bilateral lower extremity neuropathy 15. Memory disorder 16. Hypertensive heart disease 17. Vitamin D deficiency. 18. Postoperative hypotension, an unexpected but potential outcome of surgery, resolved PLAN: 1. Clear liquid diet 2. Lovenox DC. Continue SCDs for DVT prophylaxis 3. Continue bedrest today secondary to hemoglobin. 4. 2 units RBC transfusion. Continue iron transfusions. Monitor hemoglobin 5. Incentive spirometry encouraged 6. Continue Mazariegos catheter for accurate I&O 7. Continue Fentanyl [employer]UDIES TEACHER 8. Accurate I&O Nurse practitioner note has been reviewed by physician. Signing provider agrees with the documented findings, assessment, and plan of care. Objective - Vital Signs Vital signs: Vital Signs Temp 98.6 F 07/12/18 10:50 Pulse 123 H 07/12/18 10:50 Resp 18 07/12/18 10:50 BP 101/61 07/12/18 10:50 Pulse Ox 96 07/12/18 09:42 Intake & Output 07/11/18 07/12/18 07/12/18 18:59 06:59 18:59 Intake Total 800 1875 0 Output Total 400 1100 Balance 400 775 0 Weight 122.924 kg Intake: Intake, IV Titration 800 1875 Amount 0.9% NaCl with KCl 20 Meq 300 /l 1,000 ml @ 150 mls/hr IV .Q6H40M [facility] Rx#: [id number] ACETAMINOPHEN IV (For NPO 200 ) 1,000 mg In Empty Bag 1 bag @ 400 mls/hr IVPB Q6HR [facility] Rx#:[id number] Magnesium Sulfate-D5w Pmx 400 1 gm In Dextrose/Water 1 100ml.bag @ 100 mls/hr IVPB Q1H [facility] Rx#: [id number] Potassium Phosphate 10 250 mmol In Sodium Chloride 0 .9% 250 ml @ 125 mls/hr IV Q2H [facility] Rx#:[id number] Sodium Chloride 0.9% 1, 1000 000 ml @ 999 mls/hr IV . Q1H1M [facility] Rx#:[id number] Sodium Ferric Gluconat- 125 Sucrose 125 mg In Sodium Chloride 0.9% 100 ml @ 100 mls/hr IVPB Q24H [facility] Rx#:[id number] ceFAZolin 3 gm In Sodium 200 200 Chloride 0.9% 100 ml @ 200 mls/hr IVPB Q8HR [facility] Rx#:[id number] Blood Product 0 Rc Irr As1 Unit 0 [id number] Output: Urine 400 1100 Other: Voiding Method Indwelling Catheter Indwelling Catheter - Labs CBC & Chem 7: 07/12/18 07:10 07/12/18 07:10 Labs: Abnormal Lab Results - Last 24 Hours (Table) 07/10/18 07/11/18 07/11/18 Range/Units 14:00 14:40 14:40 WBC 12.2 H (3.8-10.6) k/uL RBC 2.74 L (3.80-5.40) m/uL Hgb 7.7 L (11.4-16.0) gm/dL Hct 23.3 L (34.0-46.0) % Chloride (98-107) mmol/L BUN (7-17) mg/dL Creatinine (0.52-1.04) mg/dL Glucose (74-99) mg/dL POC Glucose (mg/dL) (75-99) mg/dL Calcium (8.4-10.2) mg/dL Iron 14 L (50-170) ug/dL Iron Saturation 5.88 L (12.00-45.00) Crossmatch See Detail 07/11/18 07/11/18 07/12/18 Range/Units 16:38 20:41 07:01 WBC (3.8-10.6) k/uL RBC (3.80-5.40) m/uL Hgb (11.4-16.0) gm/dL Hct (34.0-46.0) % Chloride (98-107) mmol/L BUN (7-17) mg/dL Creatinine (0.52-1.04) mg/dL Glucose (74-99) mg/dL POC Glucose (mg/dL) 190 H 176 H 138 H (75-99) mg/dL Calcium (8.4-10.2) mg/dL Iron (50-170) ug/dL Iron Saturation (12.00-45.00) Crossmatch 07/12/18 07/12/18 Range/Units 07:10 07:10 WBC 12.4 H (3.8-10.6) k/uL RBC 2.17 L (3.80-5.40) m/uL Hgb 6.1 L* D (11.4-16.0) gm/dL Hct 18.5 L* (34.0-46.0) % Chloride 111 H (98-107) mmol/L BUN 5 L (7-17) mg/dL Creatinine 0.47 L (0.52-1.04) mg/dL Glucose 126 H (74-99) mg/dL POC Glucose (mg/dL) (75-99) mg/dL Calcium 7.3 L (8.4-10.2) mg/dL Iron (50-170) ug/dL Iron Saturation (12.00-45.00) Crossmatch <Violet Barahona N - Last Filed: 07/12/18 11:42> Objective - Vital Signs Vital signs: Vital Signs Temp 98.6 F 07/12/18 10:50 Pulse 123 H 07/12/18 10:50 Resp 18 07/12/18 10:50 BP 101/61 07/12/18 10:50 Pulse Ox 96 07/12/18 09:42 Intake & Output 07/11/18 07/12/18 07/12/18 18:59 06:59 18:59 Intake Total 800 1875 0 Output Total 400 1100 Balance 400 775 0 Weight 122.924 kg Intake: Intake, IV Titration 800 1875 Amount 0.9% NaCl with KCl 20 Meq 300 /l 1,000 ml @ 150 mls/hr IV .Q6H40M [facility] Rx#: [id number] ACETAMINOPHEN IV (For NPO 200 ) 1,000 mg In Empty Bag 1 bag @ 400 mls/hr IVPB Q6HR [facility] Rx#:[id number] Magnesium Sulfate-D5w Pmx 400 1 gm In Dextrose/Water 1 100ml.bag @ 100 mls/hr IVPB Q1H [facility] Rx#: [id number] Potassium Phosphate 10 250 mmol In Sodium Chloride 0 .9% 250 ml @ 125 mls/hr IV Q2H [facility] Rx#:[id number] Sodium Chloride 0.9% 1, 1000 000 ml @ 999 mls/hr IV . Q1H1M [facility] Rx#:[id number] Sodium Ferric Gluconat- 125 Sucrose 125 mg In Sodium Chloride 0.9% 100 ml @ 100 mls/hr IVPB Q24H [facility] Rx#:[id number] ceFAZolin 3 gm In Sodium 200 200 Chloride 0.9% 100 ml @ 200 mls/hr IVPB Q8HR [facility] Rx#:[id number] Blood Product 0 Rc Irr As1 Unit 0 [id number] Output: Urine 400 1100 Other: Voiding Method Indwelling Catheter Indwelling Catheter - Labs CBC & Chem 7: 07/12/18 07:10 07/12/18 07:10 Labs: Abnormal Lab Results - Last 24 Hours (Table) 07/10/18 07/11/18 07/11/18 Range/Units 14:00 14:40 14:40 WBC 12.2 H (3.8-10.6) k/uL RBC 2.74 L (3.80-5.40) m/uL Hgb 7.7 L (11.4-16.0) gm/dL Hct 23.3 L (34.0-46.0) % Chloride (98-107) mmol/L BUN (7-17) mg/dL Creatinine (0.52-1.04) mg/dL Glucose (74-99) mg/dL POC Glucose (mg/dL) (75-99) mg/dL Calcium (8.4-10.2) mg/dL Iron 14 L (50-170) ug/dL Iron Saturation 5.88 L (12.00-45.00) Crossmatch See Detail 07/11/18 07/11/18 07/12/18 Range/Units 16:38 20:41 07:01 WBC (3.8-10.6) k/uL RBC (3.80-5.40) m/uL Hgb (11.4-16.0) gm/dL Hct (34.0-46.0) % Chloride (98-107) mmol/L BUN (7-17) mg/dL Creatinine (0.52-1.04) mg/dL Glucose (74-99) mg/dL POC Glucose (mg/dL) 190 H 176 H 138 H (75-99) mg/dL Calcium (8.4-10.2) mg/dL Iron (50-170) ug/dL Iron Saturation (12.00-45.00) Crossmatch 07/12/18 07/12/18 Range/Units 07:10 07:10 WBC 12.4 H (3.8-10.6) k/uL RBC 2.17 L (3.80-5.40) m/uL Hgb 6.1 L* D (11.4-16.0) gm/dL Hct 18.5 L* (34.0-46.0) % Chloride 111 H (98-107) mmol/L BUN 5 L (7-17) mg/dL Creatinine 0.47 L (0.52-1.04) mg/dL Glucose 126 H (74-99) mg/dL POC Glucose (mg/dL) (75-99) mg/dL Calcium 7.3 L (8.4-10.2) mg/dL Iron (50-170) ug/dL Iron Saturation (12.00-45.00) Crossmatch Assessment and Plan (1) Morbid obesity due to excess calories Current Visit: Yes Status: Acute Code(s): E66.01 - MORBID (SEVERE) OBESITY DUE TO EXCESS CALORIES SNOMED Code(s): 814026326 (2) Morbid obesity with BMI of 45.0-49.9, adult Current Visit: Yes Status: Acute Code(s): E66.01 - MORBID (SEVERE) OBESITY DUE TO EXCESS CALORIES; Z68.42 - BODY MASS INDEX (BMI) 45.0-49.9, ADULT SNOMED Code(s): 689553924 (3) Hypotension Current Visit: Yes Status: Acute Code(s): I95.9 - HYPOTENSION, UNSPECIFIED SNOMED Code(s): 17232093
[2018-07-12 11:52] LABS: Glucose,Whole Blood 131 mg/dL (75-99)
--- NOTE | 2018-07-12 12:39 | P.PN ---
Progress Note - Text Progress Note Date: 07/12/18 Patient reevaluate this afternoon. She is awake and alert. No reports of peritonitis. is at bedside. Perioperative care reviewed and discussed including risk factors for bleeding. At this time, hemoglobin also partly dilutional secondary to over 6 L of normal saline in the last several days. DVT risk also reviewed including DVT prevention with mechanical SCDs and leg exercises. Hospitalization extended at least 48 hours until medically stable. All medications with risk of bleeding have been discontinued. Care plan also described and all questions addressed.
[2018-07-12 16:41] LABS: Glucose,Whole Blood 108 mg/dL (75-99)
[2018-07-12] MEDS ORDERED: HYDROmorphone 1 MG/ML 1 ML SYRINGE IVP PRN (18:30)
--- NOTE | 2018-07-12 18:38 | P.PN ---
Progress Note - Text Progress Note Date: 07/12/18 Patient reevaluated at this evening. is at bedside. "She has more color in her fingertips and cheeks.". At the bedside, she sat up witnessed. She reports belching. No flatus. No peritonitis. Abdominal binder repositioned. She received 2 units of packed red blood cells. CBC is pending. Plan to discontinue Mazariegos catheter tomorrow. We'll obtain chest x-ray and possible pulmonary evaluation tomorrow. Will need home healthcare assessment for PT/OT. Anticipate ambulation with assistance tomorrow. To address lack of sleep, undisturbed at minimum 8 hours of sleep advised. Information communicated to nursing team.
[2018-07-12 19:13] LABS: HCT 22.9 % (34.0-46.0); MCH 28.7 pg (25.0-35.0); MCHC 34.4 g/dL (31.0-37.0); MCV 83.3 fL (80.0-100.0); Mean Platelet Volume 7.3; Platelet Count 190 k/uL (150-450); Poikilocytosis Slight; RBC 2.75 m/uL (3.80-5.40); RDW 15.7 % (11.5-15.5); WBC 14.4 k/uL (3.8-10.6)
[2018-07-12 19:16] LABS: HGB 7.9 gm/dL (11.4-16.0)
[2018-07-12] MEDS: SODIUM FERRIC GLUCONAT-SUCROSE 125 MG in SODIUM CHLORIDE 0.9% 100 ML IVPB SCH (20:37)
[2018-07-12 20:45] LABS: Glucose,Whole Blood 134 mg/dL (75-99)
[2018-07-13] MEDS: FENTANYL IV PRN ×4 (00:32→21:58)
[2018-07-13] MEDS: SIMETHICONE 40 MG/0.6 ML DROPS 2,000 MG/30 ML BOTTLE PO SCH ×5 (00:32→17:39)
[2018-07-13] MEDS: SODIUM CHLORIDE 0.9% IV PRN ×4 (00:32→21:58)
[2018-07-13] MEDS: 1: MVI, ADULT NO.4 WITH VIT K 10 ML, THIAMINE 100 MG, FOLIC ACID 1 MG, POTASSIUM CHLORID IV SCH ×18 (02:13→21:00)
[2018-07-13 07:37] LABS: Glucose,Whole Blood 119 mg/dL (75-99)
[2018-07-13] MEDS: INSULIN ASPART (NovoLOG) 100 UNIT/ML VIAL SQ SCH ×4 (07:40→21:53)
[2018-07-13] MEDS: ALBUTEROL NEBULIZED 2.5 MG/3 ML INHALATION SCH ×4 (07:57→19:34)
[2018-07-13 08:01] LABS: Anisocytosis Slight; Basophils % (A) 0 %; Eosinophils # (A) 0.2 k/uL (0-0.7); Eosinophils % (A) 2 %; HCT 21.2 % (34.0-46.0); HGB 7.1 gm/dL (11.4-16.0); Hypochromasia Slight; Lymphocytes # (A) 1.9 k/uL (1.0-4.8); Lymphocytes % (A) 17 %; MCH 28.6 pg (25.0-35.0); MCHC 33.5 g/dL (31.0-37.0); MCV 85.3 fL (80.0-100.0); Mean Platelet Volume 7.7; Monocytes # (A) 0.4 k/uL (0-1.0); Monocytes % (A) 4 %; Neutrophils # (A) 8.5 k/uL (1.3-7.7); Neutrophils % (A) 76 %; Platelet Count 177 k/uL (150-450); Poikilocytosis Slight; RBC 2.48 m/uL (3.80-5.40); RDW 16.5 % (11.5-15.5); WBC 11.1 k/uL (3.8-10.6)
[2018-07-13 08:09] LABS: African American GFR (CKD) >90 (>60 ml/min/1.73 sqM); Anion Gap 4 mmol/L; Blood Urea Nitrogen 6 mg/dL (7-17); Calcium 7.5 mg/dL (8.4-10.2); Carbon Dioxide 29 mmol/L (22-30); Chloride 108 mmol/L (98-107); Glucose 106 mg/dL (74-99); Magnesium 2.2 mg/dL (1.6-2.3); Phosphorus 1.2 mg/dL (2.5-4.5); Potassium 3.8 mmol/L (3.5-5.1); Sodium 141 mmol/L (137-145)
--- NOTE | 2018-07-13 08:44 | XR ---
EXAMINATION TYPE: XR chest 1V portable DATE OF EXAM: 07/13/2018 COMPARISON: NONE HISTORY: Shortness of breath TECHNIQUE: Single frontal view of the chest is obtained. FINDINGS: Heart is enlarged there is limited inspiration with no pneumothorax. Bilateral consolidati on noted there is an interstitial pattern. IMPRESSION: 1. Bilateral consolidation and interstitial pattern correlate for CHF versus pneumonia.
[2018-07-13] MEDS: ceFAZolin 3 GM in SODIUM CHLORIDE 0.9% 100 ML IVPB SCH ×2 (09:09→17:07)
[2018-07-13] MEDS: PANTOPRAZOLE 40 MG/10 ML VIAL IV SCH (09:10)
[2018-07-13] MEDS: THYROID, PORK 30 MG TAB PO SCH (09:41)
[2018-07-13 11:47] LABS: Glucose,Whole Blood 113 mg/dL (75-99)
--- NOTE | 2018-07-13 13:10 | P.PN ---
Subjective Progress Note Date: 07/13/18 CHIEF COMPLAINT: Morbid obesity HISTORY OF PRESENT ILLNESS: 43-year-old female who underwent Mino-en-Y gastric bypass. POD #3. Patient examined this morning at the bedside. She is sitting on the side of the bed. Overall, she looks improved with improved coloring in her face. She states her pain is tolerable. She received 2 units RBC transfusion yesterday. Hemoglobin last night increased to 7.9. Hemoglobin this morning is 7.1. Patient's blood pressure has been stable. Patient's tachycardia has also improved with a heart rate in the 90s to low 100s. Patient is using incentive spirometer 10 times an hour. She worked with physical therapy this morning and was able to walk to the doorway and back with minimal dizziness. PHYSICAL EXAM: VITAL SIGNS: Reviewed. GENERAL: Well-developed in no acute distress. HEENT: No sclera icterus. Extraocular movements grossly intact. Moist buccal mucosa. Head is atraumatic, normocephalic. ABDOMEN: Soft. Nondistended. Appropriate surgical tenderness. Incisions clean dry and intact without drainage. NEUROLOGIC: Alert and oriented. Cranial nerves II through XII grossly intact. ASSESSMENT: 1. Morbid obesity due to excess calories. 2. Body mass index prior 50.9 down to 48.4. 3. Osteoarthritis of the knees. 4. Plantar fasciitis 5. Osteoarthritis of the lower back. 6. Gastroesophageal reflux disease 7. Irritable bowel syndrome 8. Obstructive sleep apnea 9. Kidney stones 10. Diabetes type 2 11. Hypothyroidism 12. Attention deficit disorder 13. Depression 14. Bilateral lower extremity neuropathy 15. Memory disorder 16. Hypertensive heart disease 17. Vitamin D deficiency. 18. Postoperative hypotension, an unexpected but potential outcome of surgery, resolved 19. Acute blood loss anemia, an unexpected but potential outcome of surgery PLAN: 1. Repeat hemoglobin this afternoon 2. NPO until repeat hemoglobin to ensure patient does not require surgical exploration for anemia 3. Lovenox has been DC. Continue SCDs for DVT prophylaxis 4. Incentive spirometry encouraged 5. Accurate I&O 6. Continue olson catheter 7. Continue Fentanyl [facility]AT[facility] Nurse practitioner note has been reviewed by physician. Signing provider agrees with the documented findings, assessment, and plan of care. Objective - Vital Signs Vital signs: Vital Signs Temp 99.1 F 07/13/18 07:25 Pulse 102 H 07/13/18 11:37 Resp 15 07/13/18 07:25 BP 96/67 07/13/18 07:25 Pulse Ox 100 07/13/18 07:57 Intake & Output 07/12/18 07/13/18 07/13/18 18:59 06:59 18:59 Intake Total 920 680 Output Total 725 900 Balance 195 -220 Intake: Intake, IV Titration 200 Amount Mvi, Adult No.4 with Vit 100 K 10 ml Thiamine 100 mg Folic Acid 1 mg Potassium Chloride 20 meq In Sodium Chloride 0.9% 1, 000 ml @ 100 mls/hr IV . BY DURATION KRYSTYNA Rx#: [id number] ceFAZolin 3 gm In Sodium 100 Chloride 0.9% 100 ml @ 200 mls/hr IVPB Q8HR [facility] Rx#:[id number] Oral 300 480 Blood Product 620 Rc Irr As1 Unit 310 [id number] Rc Irr As1 Unit 310 [id number] Output: Urine 725 900 Other: Voiding Method Indwelling Catheter Indwelling Catheter Indwelling Catheter - Labs CBC & Chem 7: 07/13/18 07:22 07/13/18 07:22 Labs: Abnormal Lab Results - Last 24 Hours (Table) 07/10/18 07/12/18 07/12/18 Range/Units 14:00 16:28 18:55 WBC 14.4 H (3.8-10.6) k/uL RBC 2.75 L (3.80-5.40) m/uL Hgb 7.9 L D (11.4-16.0) gm/dL Hct 22.9 L (34.0-46.0) % RDW 15.7 H (11.5-15.5) % Neutrophils # (1.3-7.7) k/uL Chloride (98-107) mmol/L BUN (7-17) mg/dL Creatinine (0.52-1.04) mg/dL Glucose (74-99) mg/dL POC Glucose (mg/dL) 108 H (75-99) mg/dL Calcium (8.4-10.2) mg/dL Phosphorus (2.5-4.5) mg/dL Crossmatch See Detail 07/12/18 07/13/18 07/13/18 Range/Units 20:32 07:22 07:22 WBC 11.1 H (3.8-10.6) k/uL RBC 2.48 L (3.80-5.40) m/uL Hgb 7.1 L (11.4-16.0) gm/dL Hct 21.2 L (34.0-46.0) % RDW 16.5 H (11.5-15.5) % Neutrophils # 8.5 H (1.3-7.7) k/uL Chloride 108 H (98-107) mmol/L BUN 6 L (7-17) mg/dL Creatinine 0.38 L (0.52-1.04) mg/dL Glucose 106 H (74-99) mg/dL POC Glucose (mg/dL) 134 H (75-99) mg/dL Calcium 7.5 L (8.4-10.2) mg/dL Phosphorus 1.2 L (2.5-4.5) mg/dL Crossmatch 07/13/18 07/13/18 Range/Units 07:22 11:33 WBC (3.8-10.6) k/uL RBC (3.80-5.40) m/uL Hgb (11.4-16.0) gm/dL Hct (34.0-46.0) % RDW (11.5-15.5) % Neutrophils # (1.3-7.7) k/uL Chloride (98-107) mmol/L BUN (7-17) mg/dL Creatinine (0.52-1.04) mg/dL Glucose (74-99) mg/dL POC Glucose (mg/dL) 119 H 113 H (75-99) mg/dL Calcium (8.4-10.2) mg/dL Phosphorus (2.5-4.5) mg/dL Crossmatch
[2018-07-13] MEDS ORDERED: Phosphorus Replacement Protoco 1 EACH MISC MISCELLANE PRN (13:40)
[2018-07-13 14:17] LABS: Anisocytosis Slight; Basophils % (A) 0 %; Eosinophils # (A) 0.1 k/uL (0-0.7); Eosinophils % (A) 1 %; HCT 21.5 % (34.0-46.0); HGB 7.1 gm/dL (11.4-16.0); Hypochromasia Slight; Lymphocytes # (A) 1.4 k/uL (1.0-4.8); Lymphocytes % (A) 14 %; MCH 28.3 pg (25.0-35.0); MCHC 33.3 g/dL (31.0-37.0); Mean Platelet Volume 7.5; Monocytes # (A) 0.4 k/uL (0-1.0); Monocytes % (A) 4 %; Neutrophils # (A) 7.8 k/uL (1.3-7.7); Neutrophils % (A) 79 %; Platelet Count 193 k/uL (150-450); Poikilocytosis Slight; RBC 2.53 m/uL (3.80-5.40); RDW 16.1 % (11.5-15.5); WBC 9.8 k/uL (3.8-10.6)
[2018-07-13] MEDS: POTASSIUM PHOSPHATE 10 MMOL in SODIUM CHLORIDE 0.9% 250 ML IV SCH ×3 (15:27→20:22)
[2018-07-13 16:54] LABS: Glucose,Whole Blood 113 mg/dL (75-99)
[2018-07-13 20:27] LABS: Glucose,Whole Blood 100 mg/dL (75-99)
--- NOTE | 2018-07-13 21:13 | P.PN ---
Progress Note - Text Progress Note Date: 07/13/18 Patient reevaluated this evening. "I feel the best!". No reports of abdominal pain. She is tolerating liquids. She is able to ambulate independently. In fact, heart rate had improved. Blood pressure has improved. Repeat hemoglobin of 7.1 discussed with patient and family. Risk of return to the operating room was reviewed however patient declined as she is clinically doing well. Will continue to observe. Will treat anemia with iron and blood as needed. Otherwise anticipate for home oxygen assessment and potential discharge tomorrow with close outpatient observation. Patient and family also understands will need intermittent iron infusions to treat iron deficiency anemia including acute blood loss anemia.
[2018-07-13] MEDS: SODIUM FERRIC GLUCONAT-SUCROSE 125 MG in SODIUM CHLORIDE 0.9% 100 ML IVPB SCH (22:39)
[2018-07-14] MEDS: ceFAZolin 3 GM in SODIUM CHLORIDE 0.9% 100 ML IVPB SCH ×2 (00:45→08:24)
[2018-07-14] MEDS: SIMETHICONE 40 MG/0.6 ML DROPS 2,000 MG/30 ML BOTTLE PO SCH ×2 (01:00→05:35)
[2018-07-14] MEDS: 1: MVI, ADULT NO.4 WITH VIT K 10 ML, THIAMINE 100 MG, FOLIC ACID 1 MG, POTASSIUM CHLORID IV SCH ×6 (01:38)
[2018-07-14] MEDS: FENTANYL IV PRN (05:23)
[2018-07-14] MEDS: SODIUM CHLORIDE 0.9% IV PRN (05:23)
[2018-07-14 07:04] LABS: Glucose,Whole Blood 92 mg/dL (75-99)
[2018-07-14 07:42] VITALS: BP 117/74; RESP 16; TEMP 98.7
[2018-07-14] MEDS: SODIUM PHOSPHATE 10 MMOL in SODIUM CHLORIDE 0.9% 250 ML IVPB SCH ×2 (08:17→10:44)
[2018-07-14] MEDS: PANTOPRAZOLE 40 MG/10 ML VIAL IV SCH (08:25)
[2018-07-14] MEDS: THYROID, PORK 30 MG TAB PO SCH (08:25)
[2018-07-14] MEDS: INSULIN ASPART (NovoLOG) 100 UNIT/ML VIAL SQ SCH (08:26)
[2018-07-14 08:41] LABS: African American GFR (CKD) >90 (>60 ml/min/1.73 sqM); Anion Gap 4 mmol/L; Blood Urea Nitrogen 7 mg/dL (7-17); Calcium 7.6 mg/dL (8.4-10.2); Carbon Dioxide 30 mmol/L (22-30); Chloride 106 mmol/L (98-107); Glucose 98 mg/dL (74-99); Potassium 3.8 mmol/L (3.5-5.1); Sodium 140 mmol/L (137-145)
[2018-07-14] MEDS: ALBUTEROL NEBULIZED 2.5 MG/3 ML INHALATION SCH ×2 (08:41→12:28)
[2018-07-14 08:42] LABS: Anisocytosis Slight; Basophils % (A) 0 %; Eosinophils # (A) 0.1 k/uL (0-0.7); Eosinophils % (A) 1 %; HGB 7.8 gm/dL (11.4-16.0); Hypochromasia Slight; Lymphocytes % (A) 22 %; MCH 28.3 pg (25.0-35.0); MCHC 32.6 g/dL (31.0-37.0); MCV 86.7 fL (80.0-100.0); Mean Platelet Volume 7.7; Monocytes # (A) 0.4 k/uL (0-1.0); Monocytes % (A) 4 %; Neutrophils # (A) 6.5 k/uL (1.3-7.7); Neutrophils % (A) 71 %; Platelet Count 229 k/uL (150-450); Poikilocytosis Slight; RBC 2.77 m/uL (3.80-5.40); RDW 16.8 % (11.5-15.5); WBC 9.1 k/uL (3.8-10.6)
[2018-07-14 08:45] VITALS: PULSE 96
--- NOTE | 2018-07-14 10:13 | P.PN ---
Subjective Progress Note Date: 07/14/18 CHIEF COMPLAINT: Morbid obesity HISTORY OF PRESENT ILLNESS: The patient is a 43-year-old female postop day 4 status post gastric bypass. Her hemoglobin had increased on its own. No additional blood products. She has complete home O2 assessment and has done well. She is tolerating diet. Overall, she continues to improve. ROS: No reports of nausea and vomiting. No bowel movements. No fevers or c hills. No new chest pain. No productive sputum PHYSICAL EXAM: VITAL SIGNS: Reviewed CONSTITUTIONAL: Well developed and in no acute distress. EYES: Conjuctivae without sclera icterus. Extraocular movements grossly intact. HEAD, EARS, NOSE, THROAT: Moist buccal mucosa. Head is atraumatic, norm ocephalic. Hears conversational speech. No nasal drainage. NECK: Supple. No thyroidomegaly. RESPIRATORY: Non-labored respirations and equal bilateral excursions. CARDIOVASCULAR: Regular rate and rhythm. ABDOMEN: Incisions clean dry and intact. Soft. No peritonitis. MUSCULOSKELETAL: No gross deformity of the lower extremities noted. No clubbing. No cyanosis. SKIN: Good skin turgor. Well perfused. NEUROLOGIC: Cranial nerves I through XII grossly intact. No focal or lateralizing signs. PSYCH: Somnolent and lethargic. CLINCAL LABS: White blood cell count elevated. Hemoglobin 7.8 up from 7.0 ASSESSMENT: 1. Morbid obesity status post gastric bypass PLAN: 1. Discharge instructions reviewed assessed with home health care Objective - Vital Signs Vital signs: Vital Signs Temp 98.7 F 07/14/18 07:00 Pulse 96 07/14/18 08:55 Resp 16 07/14/18 07:00 BP 117/74 07/14/18 07:00 Pulse Ox 95 07/14/18 07:00 Intake & Output 07/13/18 07/14/18 07/14/18 18:59 06:59 18:59 Intake Total 990 Output Total 240 300 Balance 750 -300 Intake: Intake, IV Titration 750 Amount 0.9% NaCl with KCl 20 Meq 400 /l 1,000 ml @ 100 mls/hr IV .BY DURATION KRYSTYNA Rx#: [id number] Potassium Phosphate 10 250 mmol In Sodium Chloride 0 .9% 250 ml @ 125 mls/hr IV Q2H KRYSTYNA Rx#:[id number] ceFAZolin 3 gm In Sodium 100 Chloride 0.9% 100 ml @ 200 mls/hr IVPB Q8HR [facility] Rx#:[id number] Oral 240 Output: Urine 240 300 Other: Voiding Method Indwelling Catheter # Voids 2 - Labs CBC & Chem 7: 07/14/18 07:54 07/14/18 08:02 Labs: Abnormal Lab Results - Last 24 Hours (Table) 07/13/18 07/13/18 07/13/18 Range/Units 11:33 13:52 16:43 RBC 2.53 L (3.80-5.40) m/uL Hgb 7.1 L (11.4-16.0) gm/dL Hct 21.5 L (34.0-46.0) % RDW 16.1 H (11.5-15.5) % Neutrophils # 7.8 H (1.3-7.7) k/uL Creatinine (0.52-1.04) mg/dL POC Glucose (mg/dL) 113 H 113 H (75-99) mg/dL Calcium (8.4-10.2) mg/dL 07/13/18 07/14/18 07/14/18 Range/Units 20:15 07:54 08:02 RBC 2.77 L (3.80-5.40) m/uL Hgb 7.8 L (11.4-16.0) gm/dL Hct 24.0 L (34.0-46.0) % RDW 16.8 H (11.5-15.5) % Neutrophils # (1.3-7.7) k/uL Creatinine 0.41 L (0.52-1.04) mg/dL POC Glucose (mg/dL) 100 H (75-99) mg/dL Calcium 7.6 L (8.4-10.2) mg/dL Assessment and Plan (1) Morbid obesity due to excess calories Status: Acute Code(s): E66.01 - MORBID (SEVERE) OBESITY DUE TO EXCESS CALORIES SNOMED Code(s): 298729389 (2) Morbid obesity with BMI of 45.0-49.9, adult Status: Acute Code(s): E66.01 - MORBID (SEVERE) OBESITY DUE TO EXCESS CALORIES; Z68.42 - BODY MASS INDEX (BMI) 45.0-49.9, ADULT SNOMED Code(s): 282999230 (3) Hypotension Status: Acute Code(s): I95.9 - HYPOTENSION, UNSPECIFIED SNOMED Code(s): 95800030
--- NOTE | 2018-07-14 10:24 | P.DS ---
Providers Date of admission: 07/10/18 11:18 Expected date of discharge: 07/14/18 Attending physician: Violet Barahona Primary care physician: Physician Nonstaff - Discharge Diagnosis(es) (1) Morbid obesity due to excess calories Status: Acute (2) Morbid obesity with BMI of 45.0-49.9, adult Status: Acute (3) Hypotension Status: Acute (4) Anemia associated with acute blood loss Status: Acute (5) Hypocalcemia Status: Acute (6) Hypophosphatemia Status: Acute Hospital Course: POSTOPERATIVE DIAGNOSES: 1. Morbid obesity due to excess calories. 2. Body mass index prior 50.9 down to 48.0. 3. Osteoarthritis of the knees. 4. Plantar fasciitis 5. Osteoarthritis of the lower back. 6. Gastroesophageal reflux disease 7. Irritable bowel syndrome 8. Obstructive sleep apnea 9. Kidney stones 10. Diabetes type 2 11. Hypothyroidism 12. Attention deficit disorder 13. Depression 14. Bilateral lower extremity neuropathy 15. Memory disorder 16. Hypertensive heart disease 17. Vitamin D deficiency. 18. Lower intra-abdominal peritoneal adhesions 19. Acute blood loss anemia, postoperative occurence, unexpected COURSE: Naz Christine is a 42-year-old female who comes in with long-standing morbid obesity who presented to have gastric bypass. Post-procedure she had acute blood loss anemia with hypotension treated with IV fluids and 2 units blood transfusion. Her Lovenox was discontinued due to adverse reaction from her home medications that increased risk of bleeding. Prior to discharge, her hemoglobin had improved. Postoperative recovery including incentive spirometry, ambulation, and management of her home medications were reviewed. Home health care was provided. Pertinent Studies: CT of the abdomen and pelvis without leak Procedures: OPERATION: 1. Robotic assisted da Demian Xi laparoscopic Mino-en-Y gastric bypass, 100 cm antecolic antegastric Mino limb, with 21 mm EEA. 2. Intraoperative esophagogastrojejunoscopy. Patient Condition at Discharge: Stable Plan - Discharge Summary Discharge Rx Participant: Yes New Discharge Prescriptions: New Bisacodyl [Dulcolax] 5 mg PO DAILY PRN #10 tablet. PRN Reason: Constipation Simethicone 40 mg/0.6 ml Drops [Mylicon Drops] 40 mg PO PCHS PRN #30 ml PRN Reason: Gas Ondansetron Odt [Zofran Odt] 4 mg PO Q8HR PRN #9 tab PRN Reason: Nausea HYDROcodone/APAP [[place] Elixir 7.5-325Mg/15Ml] 15 ml PO Q6H PRN #270 solution PRN Reason: Pain Furosemide [Lasix] 20 mg PO DAILY #7 tab Continue Thyroid,Pork [[place] Thyroid] 180 mg PO DAILY Omeprazole [PriLOSEC] 40 mg PO AC-BRKFST Discontinued metFORMIN HCL [Glucophage] 500 mg PO TID Methylphenidate HCl [Ritalin] 15 mg PO PC-LUNCH Methylphenidate HCl [Ritalin] 15 mg PO PC-BRKFST Memantine [Namenda] 10 mg PO BID Donepezil [Aricept] 10 mg PO HS Citalopram Hydrobromide [CeleXA] 20 mg PO DAILY Discharge Medication List Thyroid,Pork [[place] Thyroid] 180 mg PO DAILY 03/17/17 [History] Omeprazole [PriLOSEC] 40 mg PO AC-BRKFST 12/12/17 [History] Bisacodyl [Dulcolax] 5 mg PO DAILY PRN #10 tablet. 07/10/18 [Rx] Ondansetron Odt [Zofran Odt] 4 mg PO Q8HR PRN #9 tab 07/10/18 [Rx] Simethicone 40 mg/0.6 ml Drops [Mylicon Drops] 40 mg PO PCHS PRN #30 ml 07/10/18 [Rx] HYDROcodone/APAP [[place] Elixir 7.5-325Mg/15Ml] 15 ml PO Q6H PRN #270 solution 07/14/18 [Rx] Furosemide [Lasix] 20 mg PO DAILY #7 tab 07/15/18 [Rx] Follow up Appointment(s)/Referral(s): [facility], [NON-STAFF] - Bariatric Center,. [NON-STAFF] - 07/17/18 10:00 am (Nurse follow-up appt at the Bariatric center on Tuesday07/17/18 @ 10:00AM. Your follow-up with Dr. Barahona at the Bariatric center will be 07/19/18 @ 1:20pm.) Patient Instructions/Handouts: Nutrition after Bariatric Surgery (DC), Bowel Management After Bariatric Surgery (DC), Mino-en-Y Gastric Bypass (DC) Activity/Diet/Wound Care/Special Instructions: NO lifting over 4 pounds in 4 weeks. May shower. No bathtub soaks. Dressings to be removed by your doctor in the office. Drink 64 oz of fluid daily. Start protein shakes on . Notify bariatric center for temp over 101.0, increased pain, drainage from incisions. No straws or carbonated beverages. Liquid diet only. Sugar content should be less than 6 g to avoid dumping syndrome. Take MOM for constipation. CRUSH, OPEN, OR CUT TABLETS LARGER THAN A SIZE OF A TIC TAC Discharge Disposition: HOME SELF-CARE
[2018-07-14] MEDS: HYDROcodone/APAP 15 ML SOLUTION PO PRN ×2 (10:39→13:26)
[2018-07-14] MEDS: ONDANSETRON 4 MG/2 ML VIAL IVP PRN (10:42)
[2018-07-14 12:24] LABS: Glucose,Whole Blood 117 mg/dL (75-99)
--- NOTE | 2018-07-15 16:36 | P.PN ---
Progress Note - Text Progress Note Date: 07/15/18 Contacted patient at home as this is her first night from being discharged. Also spoke to visiting nurse. Initial O2 sat in the 70s. Patient was not using her incentive spirometer. Blood pressure excellent 120s over 70s. Had mild fever of 101. Intervention including use of incentive spirometer advised including, for fever. Findings of chest x-ray including oxygen trial and WBC count for the last 48 hours reviewed. Spoke to her who conferred moderate water weight gain from fluids however patient was nontoxic appearance per comparison in the hospital. I followed up with phone call 4 hrs later and she reported doing much better once using her incentive spirometer. Visiting nurse asked to check the patient tomorrow. I will personally call daily for follow-up on her care until seen in the bariatric office Tuesday. Since including start of Lasix reviewed as well.
--- NOTE | 2018-07-15 21:16 | P.PN ---
Progress Note - Text Progress Note Date: 07/15/18 I contacted her this evening. She is doing better. She reports moderate swelling in both legs from moderate fluids since hospitalization. Follow up on Tuesday. Will start lasix with cautious warning of oral fluid intake.
== END 2018-07-14 13:46 | disposition home health service (06) | DRG 620 ==
LOC: 2ORMAIN 11:18 → 4SSUR 18:17
PROVIDERS: ADMIT Surgery Plastic and Reconstructive Surgery; ATTEND Surgery Plastic and Reconstructive Surgery
PROC: 0DJ08ZZ Inspection of Upper Intestinal Tract, Via Natural or Artificial Opening Endoscopic (ICD-10-PCS; 2018-07-10)
PROC: 8E0W4CZ Robotic Assisted Procedure of Trunk Region, Percutaneous Endoscopic Approach (ICD-10-PCS; 2018-07-10)
PROC: 0D164ZA Bypass Stomach to Jejunum, Percutaneous Endoscopic Approach (ICD-10-PCS; principal; 2018-07-10 13:30)
PROC: 30233N1 Transfusion of Nonautologous Red Blood Cells into Peripheral Vein, Percutaneous Approach (ICD-10-PCS; 2018-07-12)
DX: E66.01 Morbid (severe) obesity due to excess calories (principal); D62 Acute posthemorrhagic anemia; Z68.42 Body mass index [BMI] 45.0-49.9, adult; E11.41 Type 2 diabetes mellitus with diabetic mononeuropathy; E83.51 Hypocalcemia; E83.39 Other disorders of phosphorus metabolism; I11.9 Hypertensive heart disease without heart failure; I95.81 Postprocedural hypotension; K76.0 Fatty (change of) liver, not elsewhere classified; D50.9 Iron deficiency anemia, unspecified; K66.0 Peritoneal adhesions (postprocedural) (postinfection); I49.3 Ventricular premature depolarization; G31.84 Mild cognitive impairment of uncertain or unknown etiology; E55.9 Vitamin D deficiency, unspecified; K21.9 Gastro-esophageal reflux disease without esophagitis; M17.0 Bilateral primary osteoarthritis of knee; M72.2 Plantar fascial fibromatosis; M47.9 Spondylosis, unspecified; K58.9 Irritable bowel syndrome, unspecified; G47.33 Obstructive sleep apnea (adult) (pediatric); E03.9 Hypothyroidism, unspecified; F98.8 Other specified behavioral and emotional disorders with onset usually occurring in childhood and adolescence; F32.9 Major depressive disorder, single episode, unspecified; Z79.84 Long term (current) use of oral hypoglycemic drugs; Z79.899 Other long term (current) drug therapy; Z99.89 Dependence on other enabling machines and devices; Z71.3 Dietary counseling and surveillance; Z87.442 Personal history of urinary calculi; Z90.49 Acquired absence of other specified parts of digestive tract; Z98.891 History of uterine scar from previous surgery; Z96.89 Presence of other specified functional implants; Z87.891 Personal history of nicotine dependence; Z98.890 Other specified postprocedural states; Z88.1 Allergy status to other antibiotic agents; Z88.5 Allergy status to narcotic agent; Z88.2 Allergy status to sulfonamides; Z83.49 Family history of other endocrine, nutritional and metabolic diseases; Z83.3 Family history of diabetes mellitus; Z82.49 Family history of ischemic heart disease and other diseases of the circulatory system; Z80.8 Family history of malignant neoplasm of other organs or systems; Z80.1 Family history of malignant neoplasm of trachea, bronchus and lung
CPT/HCPCS: 71045; 74177; 80048; 82728; 83540; 83550; 83735; 84100; 85025; 85027; 86850; 86900; 86901; 86920; 94640; 94760; 94762

== ENCOUNTER 2018-07-16 23:58 | Observation (INO) | payer BC, MEDICARE ==
[2018-07-17] MEDS ORDERED: IBUPROFEN 600 MG TAB PO STA (00:22)
[2018-07-17 00:55] LABS: Anisocytosis Slight; HCT 26.5 % (34.0-46.0); HGB 8.5 gm/dL (11.4-16.0); Hypochromasia Slight; MCH 27.9 pg (25.0-35.0); MCHC 32.1 g/dL (31.0-37.0); MCV 86.9 fL (80.0-100.0); Platelet Count 393 k/uL (150-450); Poikilocytosis Slight; RBC 3.04 m/uL (3.80-5.40)
[2018-07-17 00:57] LABS: ALT 44 U/L (9-52); AST 46 U/L (14-36); African American GFR (CKD) >90 (>60 ml/min/1.73 sqM); Albumin 3.5 g/dL (3.5-5.0); Alkaline Phosphatase 178 U/L (38-126); Anion Gap 6 mmol/L; Blood Urea Nitrogen 8 mg/dL (7-17); Calcium 8.2 mg/dL (8.4-10.2); Carbon Dioxide 32 mmol/L (22-30); Chloride 101 mmol/L (98-107); Glucose 108 mg/dL (74-99); Potassium 3.2 mmol/L (3.5-5.1); Sodium 139 mmol/L (137-145); Total Bilirubin 3.1 mg/dL (0.2-1.3); Total Protein 6.1 g/dL (6.3-8.2)
[2018-07-17 01:04] LABS: Partial Thromboplastin Time 24.3 sec (22.0-30.0)
[2018-07-17 01:07] LABS: Appearance,Urine Clear (Clear); Bilirubin,Urine Negative (Negative); Blood,Urine Negative (Negative); Color,Urine Yellow; Glucose,Urine (UA) Negative (Negative); Ketones,Urine 3+ (Negative); Leukocyte Esterase,Urine Negative (Negative); Nitrite,Urine Negative (Negative); PH, Urine 7.5 (5.0-8.0); Protein,Urine Negative (Negative); Specific Gravity,Urine 1.013 (1.001-1.035)
[2018-07-17] MEDS: SODIUM CHLORIDE 0.9% 500 ML 500 ML IV SCH ×2 (01:09→02:31)
--- NOTE | 2018-07-17 01:47 | ED ---
General Adult HPI - General Chief complaint: Extremity Problem,Nontraumatic Stated complaint: Fever, lt arm redness and pain Time Seen by Provider: 07/17/18 00:22 Source: patient Mode of arrival: EMS Limitations: no limitations - History of Present Illness Initial comments: Naz is a 43-year-old female who presents the emergency department today from an outside facility for evaluation of multiple complaints. Patient had bariatric surgery with Dr. Guevara. Postoperatively the patient develops of significant anemia and had blood transfusion. Patient improved and was discharged home on Tuesday with a hemoglobin of 7.8. Patient reports that since discharge she's been feeling very tired and short of breath Maya she is tachycardic and feels lightheaded with standing. She reports that her home health care nurse documented an oxygen saturation of only 82% yesterday. Today the patient noted that she had some significant pain and redness in her left arm, she was also told that she looks pale and kind of yellow in color. She decided to come back to the emergency department for reevaluation however upon driving here began to feel very unwell and decided to stop at the nearest hospital which was [place], ER physician there evaluated her and noted that she was tachycardic and febrile. She was given antipyretics. Because the patient had had recent significant anemia and physician outside ER new that she would have to have repeat blood work here he opted not to perform any blood work and a transfer her here for evaluation and treatment. - Related Data Home Medications Medication Instructions Recorded Confirmed Thyroid,Pork [[place] Thyroid] 180 mg PO DAILY 03/17/17 07/10/18 Omeprazole [PriLOSEC] 40 mg PO AC-BRKFST 12/12/17 07/10/18 Previous Rx's Medication Instructions Recorded Bisacodyl [Dulcolax] 5 mg PO DAILY PRN #10 tablet. 07/10/18 Ondansetron Odt [Zofran Odt] 4 mg PO Q8HR PRN #9 tab 07/10/18 Simethicone 40 mg/0.6 ml Drops 40 mg PO PCHS PRN #30 ml 07/10/18 [Mylicon Drops] HYDROcodone/APAP [[place] Elixir 15 ml PO Q6H PRN #270 solution 07/14/18 7.5-325Mg/15Ml] Furosemide [Lasix] 20 mg PO DAILY #7 tab 07/15/18 Allergies Allergy/AdvReac Type Severity Reaction Status Date / Time codeine Allergy Rash/Hives Verified 07/10/18 20:04 levofloxacin [From Levaquin] Allergy Swelling Verified 07/10/18 20:04 morphine Allergy Rash/Hives Verified 07/10/18 20:04 Sulfa (Sulfonamide Allergy Anaphylaxis Verified 07/10/18 20:04 Antibiotics) sulfamethoxazole Allergy Rash/Hives Verified 07/17/18 00:12 [From Bactrim] trimethoprim [From Bactrim] Allergy Rash/Hives Verified 07/17/18 00:12 Review of Systems ROS Statement: Those systems with pertinent positive or pertinent negative responses have been documented in the HPI. ROS Other: All systems not noted in ROS Statement are negative. Past Medical History Past Medical History: Diabetes Mellitus, Memory Impairment, Neurologic Disorder, Osteoarthritis (OA), Sleep Apnea/CPAP/BIPAP, Thyroid Disorder Additional Past Medical History / Comment(s): Takes Namenda and Ritalin to help her focus due to memory loss. , arrythmia & heart racing, kidney/uric acid stones, bilateral leg neuropathy, joint pain in bilateral knees History of Any Multi-Drug Resistant Organisms: None Reported Past Surgical History: Bladder Surgery, Section, Cholecystectomy Additional Past Surgical History / Comment(s): cesearean section x5, bladder surgery with mesh implant, renal stents, rueny Past Anesthesia/Blood Transfusion Reactions: No Reported Reaction Additional Past Anesthesia/Blood Transfusion Reaction / Comment(s): No transfusions to date Past Psychological History: Depression Smoking Status: Former smoker Past Alcohol Use History: None Reported Past Drug Use History: None Reported - Past Family History Mother Family Medical History: Cancer, Coronary Artery Disease (CAD), Diabetes Mellitus, Thyroid Disorder Additional Family Medical History / Comment(s): Type 2 Dm, [place] Disease, Breast cancer survivor Sister(s) Family Medical History: Diabetes Mellitus, Thyroid Disorder Additional Family Medical History / Comment(s): sister #1: Type 2 DM hypothyroidism. Sister 2: Thyroid cancer (and hyperthyroidism) Father Family Medical History: Cancer, Coronary Artery Disease (CAD) Additional Family Medical History / Comment(s): lung cancer survivor (mesothelioma from asbestos lining ships in [place]) General Exam - General Exam Comments Initial Comments: Physical Exam GENERAL: Unwell-appearing, pale HENT: Normocephalic, Atraumatic. EYES: PERRL, EOMI Conjunctival pallor PULMONARY: Tachypnea with crackles at the bases CARDIOVASCULAR: Tachycardic, regular Warm and well-perfused extremities ABDOMEN: Well-healing surgical incisions Significant ecchymosis in the left side of the abdomen around the left flank SKIN: Left antecubital fossa with firm induration surrounding previous IV site Skin is pale : Deferred NEUROLOGIC: Patient is alert and oriented x3. Moving all extremities spontaneously MUSCULOSKELETAL: Normal extremities with adequate strength and full range of motion. No lower extremity swelling or edema. No calf tenderness. PSYCHIATRIC: Normal psychiatric evaluation Limitations: no limitations Course Vital Signs 07/16/18 23:59 Temperature 99.7 F H Pulse Rate 102 H Respiratory 18 Rate Blood Pressure 129/77 O2 Sat by Pulse 97 Oximetry EKG Findings - EKG Comments: EKG Findings:: EKG was obtained for evaluation of tachycardia, EKG was obtained at 12:41 AM rate is 91 rhythm is sinus is normal axis there are normal intervals, CA 170, QRS 80, QT/QTc is 358/40 there are no acute ST elevations or depressions there is inverted T waves in lead 3. No evidence of acute ischemia or infarction. Medical Decision Making - Medical Decision Making Patient care was discussed with transferring physician prior to patient arrival. I agree that due to the patient's profound anemia she would not benefit from having blood drawn there and repeated here. Patient will be transferred here. Patient was given Tylenol prior to transfer due to fever and tachycardia outside facility. Sepsis workup was initiated Labs reveal leukocytosis, improving anemia, mild elevation of creatinine, hypokalemia, mild elevation of transaminases and bilirubin however the patient has no abdominal pain Patient also noted to have an ultrasound to confirm thrombophlebitis a computed tomography scan with pleural effusions but no sign of PE Potassium was replaced, IV fluids for rehydration were ordered Given the significant abnormalities.. I do feel the patient warrants admission to hospital for further monitoring and evaluation. Patient care was discussed with Dr. Pérez who agrees with this plan and request the patient be admitted to Dr. Guevara. - Lab Data Result diagrams: 07/17/18 00:31 07/17/18 00:31 Lab Results 06/10/19 06/10/19 06/10/19 Range/Units 00:31 00:31 00:31 WBC 11.9 H (3.8-10.6) k/uL RBC 3.04 L (3.80-5.40) m/uL Hgb 8.5 L (11.4-16.0) gm/dL Hct 26.5 L (34.0-46.0) % MCV 86.9 (80.0-100.0) fL MCH 27.9 (25.0-35.0) pg MCHC 32.1 (31.0-37.0) g/dL RDW 17.0 H (11.5-15.5) % Plt Count 393 (150-450) k/uL Neutrophils % (Manual) 64 % Band Neutrophils % 4 % Lymphocytes % (Manual) 17 % Monocytes % (Manual) 8 % Eosinophils % (Manual) 1 % Metamyelocytes % 6 % Myelocytes % 1 % Neutrophils # (Manual) 8.00 H (1.3-7.7) k/uL Lymphocytes # (Manual) 2.02 (1.0-4.8) k/uL Monocytes # (Manual) 0.95 (0-1.0) k/uL Eosinophils # (Manual) 0.12 (0-0.7) k/uL Metamyelocytes # (Man) 0.71 H (0) k/uL Myelocytes # (Manual) 0.12 H (0) k/uL Plasma Cell # (Manual) 0.12 H (0) k/uL Nucleated RBCs 2 H (0-0) /100 WBC Manual Slide Review Performed Plasma Cells % 1 % Polychromasia Present Hypochromasia Slight Poikilocytosis Slight Anisocytosis Slight Target Cells Present PT (9.0-12.0) sec INR (<1.2) APTT (22.0-30.0) sec Sodium 139 (137-145) mmol/L Potassium 3.2 L (3.5-5.1) mmol/L Chloride 101 (98-107) mmol/L Carbon Dioxide 32 H (22-30) mmol/L Anion Gap 6 mmol/L BUN 8 (7-17) mg/dL Creatinine 0.39 L (0.52-1.04) mg/dL Est GFR (CKD-EPI)AfAm >90 (>60 ml/min/1.73 sqM) Est GFR (CKD-EPI)NonAf >90 (>60 ml/min/1.73 sqM) Glucose 108 H (74-99) mg/dL Plasma Lactic Acid Jesus Alberto 0.9 (0.7-2.0) mmol/L Calcium 8.2 L (8.4-10.2) mg/dL Total Bilirubin 3.1 H (0.2-1.3) mg/dL AST 46 H (14-36) U/L ALT 44 (9-52) U/L Alkaline Phosphatase 178 H (38-126) U/L Total Protein 6.1 L (6.3-8.2) g/dL Albumin 3.5 (3.5-5.0) g/dL Urine Color Urine Appearance (Clear) Urine pH (5.0-8.0) Ur Specific [place] (1.001-1.035) Urine Protein (Negative) Urine Glucose (UA) (Negative) Urine Ketones (Negative) Urine Blood (Negative) Urine Nitrite (Negative) Urine Bilirubin (Negative) Urine Urobilinogen (<2.0) mg/dL Ur Leukocyte Esterase (Negative) 07/17/18 07/17/18 Range/Units 00:31 00:55 WBC (3.8-10.6) k/uL RBC (3.80-5.40) m/uL Hgb (11.4-16.0) gm/dL Hct (34.0-46.0) % MCV (80.0-100.0) fL MCH (25.0-35.0) pg MCHC (31.0-37.0) g/dL RDW (11.5-15.5) % Plt Count (150-450) k/uL Neutrophils % (Manual) % Band Neutrophils % % Lymphocytes % (Manual) % Monocytes % (Manual) % Eosinophils % (Manual) % Metamyelocytes % % Myelocytes % % Neutrophils # (Manual) (1.3-7.7) k/uL Lymphocytes # (Manual) (1.0-4.8) k/uL Monocytes # (Manual) (0-1.0) k/uL Eosinophils # (Manual) (0-0.7) k/uL Metamyelocytes # (Man) (0) k/uL Myelocytes # (Manual) (0) k/uL Plasma Cell # (Manual) (0) k/uL Nucleated RBCs (0-0) /100 WBC Manual Slide Review Plasma Cells % % Polychromasia Hypochromasia Poikilocytosis Anisocytosis Target Cells PT 11.0 (9.0-12.0) sec INR 1.0 (<1.2) APTT 24.3 (22.0-30.0) sec Sodium (137-145) mmol/L Potassium (3.5-5.1) mmol/L Chloride (98-107) mmol/L Carbon Dioxide (22-30) mmol/L Anion Gap mmol/L BUN (7-17) mg/dL Creatinine (0.52-1.04) mg/dL Est GFR (CKD-EPI)AfAm (>60 ml/min/1.73 sqM) Est GFR (CKD-EPI)NonAf (>60 ml/min/1.73 sqM) Glucose (74-99) mg/dL Plasma Lactic Acid Jesus Alberto (0.7-2.0) mmol/L Calcium (8.4-10.2) mg/dL Total Bilirubin (0.2-1.3) mg/dL AST (14-36) U/L ALT (9-52) U/L Alkaline Phosphatase (38-126) U/L Total Protein (6.3-8.2) g/dL Albumin (3.5-5.0) g/dL Urine Color Yellow Urine Appearance Clear (Clear) Urine pH 7.5 (5.0-8.0) Ur Specific [place] 1.013 (1.001-1.035) Urine Protein Negative (Negative) Urine Glucose (UA) Negative (Negative) Urine Ketones 3+ H (Negative) Urine Blood Negative (Negative) Urine Nitrite Negative (Negative) Urine Bilirubin Negative (Negative) Urine Urobilinogen 8.0 (<2.0) mg/dL Ur Leukocyte Esterase Negative (Negative) Disposition Clinical Impression: Hypokalemia, Elevated transaminase measurement, Postoperative anemia, Symptomatic anemia, Thrombophlebitis following infusion, perfusion or transfusion Disposition: ADMITTED IP TO THIS HOSP Condition: Stable Referrals: None,Stated [REFERRING] - 1-2 days
[2018-07-17 01:49] LABS: Band Neutrophils % 4 %; Eosinophils # (M) 0.12 k/uL (0-0.7); Lymphocytes # (M) 2.02 k/uL (1.0-4.8); Metamyelocytes # (M) 0.71 k/uL (0); Metamyelocytes % 6 %; Monocytes # (M) 0.95 k/uL (0-1.0); Myelocytes # (M) 0.12 k/uL (0); Myelocytes % 1 %; Neutrophils % (M) 64 %; Nucleated Red Blood Cells 2 /100 WBC (0-0); Plasma Cells # (M) 0.12 k/uL (0); Plasma Cells % 1 %; Target Cells Present; Total Cells Counted 200; WBC 11.9 k/uL (3.8-10.6)
[2018-07-17 01:50] LABS: Polychromasia Present
--- NOTE | 2018-07-17 02:36 | US ---
EXAM: US Duplex Left Upper Extremity Veins CLINICAL HISTORY: ITS.REASON US Reason: Pain, swelling previous IV TECHNIQUE: Real-time duplex ultrasound scan of the left upper extremity veins integrating B-mode two-dimensional vascular structure, Doppler spectral analysis, color flow Doppler imaging and compression. COMPARISON: No relevant prior studies available. FINDINGS: Deep veins: Unremarkable. No DVT in the internal jugular, subclavian, axillary, or brachial veins. The veins demonstrate normal color flow, are normally compressible, with normal phasic flow and/or augmentation response. Superficial veins: Thrombus in the cephalic vein 4-6 cm from the brachial fossa. Soft tissues: No fluid collection. IMPRESSION: No DVT. Superficial thrombus in the cephalic vein in the area of concern.
--- NOTE | 2018-07-17 02:47 | CT ---
EXAM: CT Angiography Chest With Intravenous Contrast CLINICAL HISTORY: ITS.REASON CT Reason: post op, SOB, tachy, SpO2 low TECHNIQUE: Axial computed tomographic angiography images of the chest with intravenous contrast using pulmonary embolism protocol. CTDI is 20 mGy and DLP is 808 mGy-cm. This CT exam was performed using one or more of the following dose reduction techniques: automated exposure control, adjustment of the mA and/or kV according to patient size, and/or use of iterative reconstruction technique. MIP reconstructed images were created and reviewed. COMPARISON: 07/17/18 chest x-ray FINDINGS: Pulmonary arteries: No filling defects. Aorta: No thoracic aortic aneurysm. Lungs: No mass. Pleural space: Mild bilateral pleural effusions with compressive atelectasis. Heart: No cardiomegaly. No pericardial effusion. Bones/joints: No acute fracture or dislocation. Soft tissues: Unremarkable. Lymph nodes: No enlarged lymph nodes. IMPRESSION: Mild bilateral pleural effusions with compressive/subsegmental atelectasis. No pulmonary embolism.
[2018-07-17] MEDS ORDERED: NALOXONE 0.4 MG/ML 1 ML VIAL IV PRN (03:21)
[2018-07-17] MEDS ORDERED: CEPHALEXIN 500 MG CAP PO SCH (03:30)
[2018-07-17] MEDS ORDERED: MORPHINE SULFATE 5 MG/ML SYRINGE IVP PRN (03:34)
[2018-07-17] MEDS ORDERED: HYDROcodone/APAP 15 ML SOLUTION PO ONE (04:14)
[2018-07-17] MEDS ORDERED: HYDROcodone/APAP 15 ML SOLUTION PO PRN ×2 (04:33→09:50)
[2018-07-17 05:04] VITALS: BMI 49.9
[2018-07-17 05:44] VITALS: BP 121/83; RESP 18; TEMP 98.8
[2018-07-17 07:20] LABS: Glucose,Whole Blood 107 mg/dL (75-99)
[2018-07-17] MEDS ORDERED: THYROID, PORK 30 MG TAB PO SCH (09:00)
[2018-07-17] MEDS ORDERED: Potassium Replacement Protocol 1 EACH MISC MISCELLANE PRN (09:59)
[2018-07-17] MEDS ORDERED: FUROSEMIDE 20 MG TAB PO SCH (10:00)
[2018-07-17] MEDS: POTASSIUM CHLORIDE 10 MEQ in WATER FOR INJECTION 1 100ML.BAG IVPB SCH ×4 (10:44→14:22)
[2018-07-17] MEDS ORDERED: AMOXIC-POT CLAV 200-28.5MG/5ML 100 ML BOTTLE PO SCH (11:00)
[2018-07-17 11:42] LABS: Glucose,Whole Blood 103 mg/dL (75-99)
[2018-07-17] MEDS ORDERED: PIPERACILLIN-TAZOBACTAM 3.375 GM in SODIUM CHLORIDE 0.9% 100 ML IVPB SCH (12:00)
[2018-07-17] MEDS ORDERED: FUROSEMIDE 10 MG/ML 2 ML VIAL IV SCH (12:15)
[2018-07-17] MEDS ORDERED: HYDROmorphone 1 MG/ML 1 ML SYRINGE IVP PRN (12:16)
[2018-07-17] MEDS ORDERED: SODIUM FERRIC GLUCONAT-SUCROSE 125 MG in SODIUM CHLORIDE 0.9% 100 ML IVPB SCH (13:00)
[2018-07-17] MEDS: ALBUTEROL NEBULIZED 2.5 MG/3 ML INHALATION SCH ×2 (13:45→15:50)
[2018-07-17 13:57] VITALS: PULSE 80
[2018-07-17] MEDS ORDERED: POTASSIUM BICARBONATE/CIT AC 20 MEQ TABLET.EFF PO SCH (14:00)
--- NOTE | 2018-07-17 14:16 | P.GSHP ---
<Mara Adkins A - Last Filed: 07/17/18 14:16> History of Present Illness H&P Date: 07/17/18 Chief Complaint: SOB, pain, redness of left arm CHIEF COMPLAINT: SOB, pain, redness to left arm HISTORY OF PRESENT ILLNESS: 43-year-old female who was recently admitted from 07/10/2018 until 07/14/2018 and underwent Mino-en-Y gastric bypass at that time. Patient was discharged home in stable condition. Patient states on Tuesday she began having increased shortness of breath and increasing swelling of her extremities and felt like she was retaining fluid. She spoke with Dr. Barahona. She was started on Lasix and Augmentin. Patient states her home appliance technician came out to see her yesterday and her oxygen saturation was reading in the 70-80s. She came to the ER for further evaluation. Patient examined this morning at the bedside. She denies shortness of breath this morning. Incentive spirometry has been ordered. She is on room air with oxygen saturations greater than 92%. She is tolerating liquid diet. Denies nausea or vomiting. She states the redness to her left arm has improved but reports it feels tight today. PAST MEDICAL HISTORY: See list. PAST SURGICAL HISTORY: See list. SOCIAL HISTORY: No illicit drug use. REVIEW OF SYSTEMS: CONSTITUTIONAL: Denies fever or chills. HEENT: Denies blurred vision, vision changes, or eye pain. Denies hemoptysis CARDIOVASCULAR: Denies chest pain or pressure. RESPIRATORY: Reports shortness of breath prior to coming to hospital. GASTROINTESTINAL: Refer to [facility] for pertinent findings HEMATOLOGIC: Denies bleeding disorders. GENITOURINARY: Denies any blood in urine. SKIN: Reports redness to left upper extremity. Denies pruitis. Denies rash. PHYSICAL EXAM: VITAL SIGNS: Reviewed. GENERAL: Well-developed in no acute distress. HEENT: No sclera icterus. Extraocular movements grossly intact. Moist buccal mucosa. Head is atraumatic, normocephalic. ABDOMEN: Soft. Nondistended. Nontender. Incisions clean dry intact. NEUROLOGIC: Alert and oriented. Cranial nerves II through XII grossly intact. EXTREMITIES: Bilateral lower extremity edema. Redness to left upper extremity with mild surrounding edema. LABORATORY DATA: WBC 11.9. Hemoglobin 8.5. Potassium 3.2. IMAGIN. CTA: Mild bilateral pleural effusions with compressive subsegmental atelectasis. No pulmonary embolus. 2. Left upper extremity Doppler: Negative for DVT. Superficial thrombus in cephalic vein in the area of concern. ASSESSMENT: 1. Morbid obesity due to excess calories. 2. Body mass index prior 50.9 down to 48.4. 3. Osteoarthritis of the knees. 4. Plantar fasciitis 5. Osteoarthritis of the lower back. 6. Gastroesophageal reflux disease 7. Irritable bowel syndrome 8. Obstructive sleep apnea 9. Kidney stones 10. Diabetes type 2 11. Hypothyroidism 12. Attention deficit disorder 13. Depression 14. Bilateral lower extremity neuropathy 15. Memory disorder 16. Hypertensive heart disease 17. Vitamin D deficiency. 18. Acute blood loss anemia, an unexpected but potential outcome of surgery 19. Thrombophlebitis left upper extremity 20. Superficial thrombus left cephalic vein 21. Dyspnea with atelectasis 22. Leukocytosis 23. Hypokalemia PLAN: 1. Continue liquid diet 2. Activity as tolerated 3. Incentive spirometry 4. Pulmonary has been consulted for further evaluation 5. Lasix 20mg IV q12 hours 6. Replace potassium 7. Zosyn IV q8 hours. Monitor WBC 8. Continue iron supplements Nurse practitioner note has been reviewed by physician. Signing provider agrees with the documented findings, assessment, and plan of care. Past Medical History Past Medical History: Diabetes Mellitus, Memory Impairment, Neurologic Disorder, Osteoarthritis (OA), Sleep Apnea/CPAP/BIPAP, Thyroid Disorder Additional Past Medical History / Comment(s): Takes Namenda and Ritalin to help her focus due to memory loss. , arrythmia & heart racing, kidney/uric acid stones, bilateral leg neuropathy, joint pain in bilateral knees History of Any Multi-Drug Resistant Organisms: None Reported Past Surgical History: Bladder Surgery, Section, Cholecystectomy Additional Past Surgical History / Comment(s): cesearean section x5, bladder surgery with mesh implant, renal stents, rueny sx 07/10/18 Past Anesthesia/Blood Transfusion Reactions: No Reported Reaction Additional Past Anesthesia/Blood Transfusion Reaction / Comment(s): recieved blood transfusion 2 units with no reactions Past Psychological History: Depression, Panic Disorder Smoking Status: Former smoker Past Alcohol Use History: None Reported Past Drug Use History: None Reported Additional Drug Use History / Comment(s): Quit smoking in 2000 (had smoked about 1/2 pack /day x 8 years) - Past Family History Mother Family Medical History: Cancer, Coronary Artery Disease (CAD), Diabetes Mellitus, Thyroid Disorder Additional Family Medical History / Comment(s): Type 2 Dm, [place] Disease, Located within [facility] cancer survivor Sister(s) Family Medical History: Diabetes Mellitus, Thyroid Disorder Additional Family Medical History / Comment(s): sister #1: Type 2 DM hypothyroidism. Sister 2: Thyroid cancer (and hyperthyroidism) Father Family Medical History: Cancer, Coronary Artery Disease (CAD) Additional Family Medical History / Comment(s): lung cancer survivor (mesothelioma from asbestos lining ships in [place]) Medications and Allergies Home Medications Medication Instructions Recorded Confirmed Type Thyroid,Pork [[place] Thyroid] 180 mg PO DAILY 03/17/17 07/17/18 History Omeprazole [PriLOSEC] 40 mg PO AC-BRKFST 12/12/17 07/17/18 History Bisacodyl [Dulcolax] 5 mg PO DAILY PRN #10 tablet.dr 07/10/18 07/17/18 Rx Ondansetron Odt [Zofran ODT] 4 mg PO Q8HR PRN #9 tab 07/10/18 07/17/18 Rx HYDROcodone/APAP [[place] Elixir 15 ml PO Q6H PRN #270 solution 07/14/18 07/17/18 Rx 7.5-325Mg/15Ml] Furosemide [Lasix] 20 mg PO DAILY #7 tab 07/15/18 07/17/18 Rx Amoxic-Pot Clav 250-62.5MG/5Ml 15 ml PO BID 07/17/18 07/17/18 History [Augmentin 250-62.5 mg/5 ml Susp.] Potassium Chloride Oral Liquid 40 meq PO DAILY #300 ml 07/17/18 Rx Simethicone 40 mg/0.6 ml Drops 40 mg PO PC-TID PRN 07/17/18 07/17/18 History [Mylicon Drops] Allergies Allergy/AdvReac Type Severity Reaction Status Date / Time codeine Allergy Rash/Hives Verified 07/17/18 08:00 levofloxacin [From Levaquin] Allergy Swelling Verified 07/17/18 08:00 morphine Allergy Rash/Hives Verified 07/17/18 08:00 Sulfa (Sulfonamide Allergy Anaphylaxis Verified 07/17/18 08:00 Antibiotics) sulfamethoxazole Allergy Rash/Hives Verified 07/17/18 08:00 [From Bactrim] trimethoprim [From Bactrim] Allergy Rash/Hives Verified 07/17/18 08:00 Surgical - Exam Vital Signs Temp Pulse Resp BP Pulse Ox 99.7 F H 102 H 18 129/77 97 07/16/18 23:59 07/16/18 23:59 07/16/18 23:59 07/16/18 23:59 07/16/18 23:59 Results - Labs 07/17/18 00:31 07/17/18 00:31 Abnormal Lab Results - Last 24 Hours (Table) 07/17/18 07/17/18 07/17/18 Range/Units 00:31 00:31 00:55 WBC 11.9 H (3.8-10.6) k/uL RBC 3.04 L (3.80-5.40) m/uL Hgb 8.5 L (11.4-16.0) gm/dL Hct 26.5 L (34.0-46.0) % RDW 17.0 H (11.5-15.5) % Neutrophils # (Manual) 8.00 H (1.3-7.7) k/uL Metamyelocytes # (Man) 0.71 H (0) k/uL Myelocytes # (Manual) 0.12 H (0) k/uL Plasma Cell # (Manual) 0.12 H (0) k/uL Nucleated RBCs 2 H (0-0) /100 WBC Potassium 3.2 L (3.5-5.1) mmol/L Carbon Dioxide 32 H (22-30) mmol/L Creatinine 0.39 L (0.52-1.04) mg/dL Glucose 108 H (74-99) mg/dL POC Glucose (mg/dL) (75-99) mg/dL Calcium 8.2 L (8.4-10.2) mg/dL Total Bilirubin 3.1 H (0.2-1.3) mg/dL AST 46 H (14-36) U/L Alkaline Phosphatase 178 H (38-126) U/L Total Protein 6.1 L (6.3-8.2) g/dL Urine Ketones 3+ H (Negative) 07/17/18 07/17/18 Range/Units 07:10 11:37 WBC (3.8-10.6) k/uL RBC (3.80-5.40) m/uL Hgb (11.4-16.0) gm/dL Hct (34.0-46.0) % RDW (11.5-15.5) % Neutrophils # (Manual) (1.3-7.7) k/uL Metamyelocytes # (Man) (0) k/uL Myelocytes # (Manual) (0) k/uL Plasma Cell # (Manual) (0) k/uL Nucleated RBCs (0-0) /100 WBC Potassium (3.5-5.1) mmol/L Carbon Dioxide (22-30) mmol/L Creatinine (0.52-1.04) mg/dL Glucose (74-99) mg/dL POC Glucose (mg/dL) 107 H 103 H (75-99) mg/dL Calcium (8.4-10.2) mg/dL Total Bilirubin (0.2-1.3) mg/dL AST (14-36) U/L Alkaline Phosphatase (38-126) U/L Total Protein (6.3-8.2) g/dL Urine Ketones (Negative) Microbiology - Last 24 Hours (Table) 07/17/18 00:55 Urine Culture - Preliminary Urine,Clean Catch Diabetes panel 07/17/18 Range/Units 00:31 Sodium 139 (137-145) mmol/L Potassium 3.2 L (3.5-5.1) mmol/L Chloride 101 (98-107) mmol/L Carbon Dioxide 32 H (22-30) mmol/L BUN 8 (7-17) mg/dL Creatinine 0.39 L (0.52-1.04) mg/dL Glucose 108 H (74-99) mg/dL Calcium 8.2 L (8.4-10.2) mg/dL AST 46 H (14-36) U/L ALT 44 (9-52) U/L Alkaline Phosphatase 178 H (38-126) U/L Total Protein 6.1 L (6.3-8.2) g/dL Albumin 3.5 (3.5-5.0) g/dL Calcium panel 07/17/18 Range/Units 00:31 Calcium 8.2 L (8.4-10.2) mg/dL Albumin 3.5 (3.5-5.0) g/dL Pituitary panel 07/17/18 Range/Units 00:31 Sodium 139 (137-145) mmol/L Potassium 3.2 L (3.5-5.1) mmol/L Chloride 101 (98-107) mmol/L Carbon Dioxide 32 H (22-30) mmol/L BUN 8 (7-17) mg/dL Creatinine 0.39 L (0.52-1.04) mg/dL Glucose 108 H (74-99) mg/dL Calcium 8.2 L (8.4-10.2) mg/dL Adrenal panel 07/17/18 Range/Units 00:31 Sodium 139 (137-145) mmol/L Potassium 3.2 L (3.5-5.1) mmol/L Chloride 101 (98-107) mmol/L Carbon Dioxide 32 H (22-30) mmol/L BUN 8 (7-17) mg/dL Creatinine 0.39 L (0.52-1.04) mg/dL Glucose 108 H (74-99) mg/dL Calcium 8.2 L (8.4-10.2) mg/dL Total Bilirubin 3.1 H (0.2-1.3) mg/dL AST 46 H (14-36) U/L ALT 44 (9-52) U/L Alkaline Phosphatase 178 H (38-126) U/L Total Protein 6.1 L (6.3-8.2) g/dL Albumin 3.5 (3.5-5.0) g/dL Assessment and Plan (1) Hypokalemia Current Visit: Yes Status: Acute Code(s): E87.6 - HYPOKALEMIA SNOMED Code(s): 42970766 (2) Postoperative anemia Current Visit: Yes Status: Acute Code(s): D64.9 - ANEMIA, UNSPECIFIED SNOMED Code(s): 113860565 (3) Thrombophlebitis following infusion, perfusion or transfusion Current Visit: Yes Status: Acute Code(s): T80.1XXA - VASCULAR COMP FOL INFUSN, TRANFS AND THERAPUTC INJECT, INIT SNOMED Code(s): 90283853 (4) Anemia associated with acute blood loss Current Visit: No Status: Acute Code(s): D62 - ACUTE POSTHEMORRHAGIC ANEMIA SNOMED Code(s): 844876598 (5) Morbid obesity with BMI of 45.0-49.9, adult Current Visit: No Status: Acute Code(s): E66.01 - MORBID (SEVERE) OBESITY DUE TO EXCESS CALORIES; Z68.42 - BODY MASS INDEX (BMI) 45.0-49.9, ADULT SNOMED Code(s): 692108946 <Violet Barahona N - Last Filed: 07/17/18 14:50> History of Present Illness Patient seen and evaluated. Additional history given. Patient was directed to the ER by on-call provider. She reported developing new thrombophlebitis yesterday along the left forearm. Overall, patient feeling much better. No further shortness of breath. She responded well to Lasix. Patient given IV for history of iron deficiency anemia. Also, she reports intolerance to IV potassium. Oral potassium given. Patient and family eager to go home as she is doing better. Discharge instructions including potassium supplement, protein shake diet, continue use incentive spirometer was reviewed. She has just started Lasix for lower extremity swelling and is responding. At this time, no signs of infection. Patient stable for discharge home. Surgical - Exam Vital Signs Temp Pulse Resp BP Pulse Ox 99.7 F H 102 H 18 129/77 97 07/16/18 23:59 07/16/18 23:59 07/16/18 23:59 07/16/18 23:59 07/16/18 23:59 Results - Labs 07/17/18 00:31 07/17/18 00:31 Abnormal Lab Results - Last 24 Hours (Table) 07/17/18 07/17/18 07/17/18 Range/Units 00:31 00:31 00:55 WBC 11.9 H (3.8-10.6) k/uL RBC 3.04 L (3.80-5.40) m/uL Hgb 8.5 L (11.4-16.0) gm/dL Hct 26.5 L (34.0-46.0) % RDW 17.0 H (11.5-15.5) % Neutrophils # (Manual) 8.00 H (1.3-7.7) k/uL Metamyelocytes # (Man) 0.71 H (0) k/uL Myelocytes # (Manual) 0.12 H (0) k/uL Plasma Cell # (Manual) 0.12 H (0) k/uL Nucleated RBCs 2 H (0-0) /100 WBC Potassium 3.2 L (3.5-5.1) mmol/L Carbon Dioxide 32 H (22-30) mmol/L Creatinine 0.39 L (0.52-1.04) mg/dL Glucose 108 H (74-99) mg/dL POC Glucose (mg/dL) (75-99) mg/dL Calcium 8.2 L (8.4-10.2) mg/dL Total Bilirubin 3.1 H (0.2-1.3) mg/dL AST 46 H (14-36) U/L Alkaline Phosphatase 178 H (38-126) U/L Total Protein 6.1 L (6.3-8.2) g/dL Urine Ketones 3+ H (Negative) 07/17/18 07/17/18 Range/Units 07:10 11:37 WBC (3.8-10.6) k/uL RBC (3.80-5.40) m/uL Hgb (11.4-16.0) gm/dL Hct (34.0-46.0) % RDW (11.5-15.5) % Neutrophils # (Manual) (1.3-7.7) k/uL Metamyelocytes # (Man) (0) k/uL Myelocytes # (Manual) (0) k/uL Plasma Cell # (Manual) (0) k/uL Nucleated RBCs (0-0) /100 WBC Potassium (3.5-5.1) mmol/L Carbon Dioxide (22-30) mmol/L Creatinine (0.52-1.04) mg/dL Glucose (74-99) mg/dL POC Glucose (mg/dL) 107 H 103 H (75-99) mg/dL Calcium (8.4-10.2) mg/dL Total Bilirubin (0.2-1.3) mg/dL AST (14-36) U/L Alkaline Phosphatase (38-126) U/L Total Protein (6.3-8.2) g/dL Urine Ketones (Negative) Microbiology - Last 24 Hours (Table) 07/17/18 00:55 Urine Culture - Preliminary Urine,Clean Catch Diabetes panel 07/17/18 Range/Units 00:31 Sodium 139 (137-145) mmol/L Potassium 3.2 L (3.5-5.1) mmol/L Chloride 101 (98-107) mmol/L Carbon Dioxide 32 H (22-30) mmol/L BUN 8 (7-17) mg/dL Creatinine 0.39 L (0.52-1.04) mg/dL Glucose 108 H (74-99) mg/dL Calcium 8.2 L (8.4-10.2) mg/dL AST 46 H (14-36) U/L ALT 44 (9-52) U/L Alkaline Phosphatase 178 H (38-126) U/L Total Protein 6.1 L (6.3-8.2) g/dL Albumin 3.5 (3.5-5.0) g/dL Calcium panel 07/17/18 Range/Units 00:31 Calcium 8.2 L (8.4-10.2) mg/dL Albumin 3.5 (3.5-5.0) g/dL Pituitary panel 07/17/18 Range/Units 00:31 Sodium 139 (137-145) mmol/L Potassium 3.2 L (3.5-5.1) mmol/L Chloride 101 (98-107) mmol/L Carbon Dioxide 32 H (22-30) mmol/L BUN 8 (7-17) mg/dL Creatinine 0.39 L (0.52-1.04) mg/dL Glucose 108 H (74-99) mg/dL Calcium 8.2 L (8.4-10.2) mg/dL Adrenal panel 07/17/18 Range/Units 00:31 Sodium 139 (137-145) mmol/L Potassium 3.2 L (3.5-5.1) mmol/L Chloride 101 (98-107) mmol/L Carbon Dioxide 32 H (22-30) mmol/L BUN 8 (7-17) mg/dL Creatinine 0.39 L (0.52-1.04) mg/dL Glucose 108 H (74-99) mg/dL Calcium 8.2 L (8.4-10.2) mg/dL Total Bilirubin 3.1 H (0.2-1.3) mg/dL AST 46 H (14-36) U/L ALT 44 (9-52) U/L Alkaline Phosphatase 178 H (38-126) U/L Total Protein 6.1 L (6.3-8.2) g/dL Albumin 3.5 (3.5-5.0) g/dL
[2018-07-17] MEDS: ONDANSETRON 4 MG/2 ML VIAL IVP SCH ×2 (14:20→15:21)
--- NOTE | 2018-07-17 14:58 | P.DS ---
Providers Date of admission: 07/17/18 03:21 Expected date of discharge: 07/17/18 Attending physician: Violet Barahona Consults: 07/17/18 12:14 Consult Physician Urgent Consulting Provider: Raom Moore Consult Reason/Comments: COPD Do you want consulting provider notified?: Yes Primary care physician: Physician Nonstaff - Discharge Diagnosis(es) (1) Status post bariatric surgery Current Visit: Yes Status: Acute (2) Dyspnea Current Visit: Yes Status: Acute (3) Iron deficiency anemia Current Visit: Yes Status: Acute (4) Hypokalemia Current Visit: Yes Status: Acute (5) Superficial thrombophlebitis Current Visit: Yes Status: Acute (6) Atelectasis of both lungs Current Visit: Yes Status: Acute Hospital Course: The patient is a 43-year-old female recently discharged in the last 3 days following acute blood loss anemia, adverse reaction to Lovenox with her current medications, and gastric bypass surgery. Patient was closely monitored over the weekend where she had home healthcare nurse. She reports increased fatigue at home including dyspnea with oxygen saturations in the 70s to 80s. At that time she was not using her incentive spirometer. After additional education teaching O2 sats were over 90s per report with home health care nurse. Patient reports developing new thrombophlebitis of the left forearm which then prompted her to go the emergency room. She was mostly concerned of the bilateral lower extremity swelling which is to be expected and reviewed upon her last discharge. In fact, Lasix was prescribed for her but she did not take. She presented to her local emergency room who transferred her to [facility]. Since admission, she was started on Lasix. Her breathing has improved. Her O2 sat is over 90+ percent. CT of the chest was negative for pulmonary embolism. EKG was normal. Tachycardia had resolved. She had moderate bruising along the abdomen from previous acute blood loss anemia which is resolving. Hemoglobin in fact has improved from last week from 7.8-8.5. Overall patient and family are eager to go home as she feels much better. I have personally given them my cell number to contact me directly for any issues. Close observation as outpatient also advised. Warm compresses for superficial thrombophlebitis. Antibiotics have been continued from her recent hospitalization. Pertinent Studies: EKG normal CT chest consistent negative for pulmonary embolism. Bilateral atelectasis Patient Condition at Discharge: Stable Plan - Discharge Summary New Discharge Prescriptions: New Potassium Chloride Oral Liquid 40 meq PO DAILY #300 ml Continue Thyroid,Pork [[place] Thyroid] 180 mg PO DAILY Omeprazole [PriLOSEC] 40 mg PO AC-BRKFST Bisacodyl [Dulcolax] 5 mg PO DAILY PRN #10 tablet. PRN Reason: Constipation Ondansetron Odt [Zofran ODT] 4 mg PO Q8HR PRN #9 tab PRN Reason: Nausea HYDROcodone/APAP [[place] Elixir 7.5-325Mg/15Ml] 15 ml PO Q6H PRN #270 solution PRN Reason: Pain Furosemide [Lasix] 20 mg PO DAILY #7 tab Amoxic-Pot Clav 250-62.5MG/5Ml [Augmentin 250-62.5 mg/5 ml Susp.] 15 ml PO BID Simethicone 40 mg/0.6 ml Drops [Mylicon Drops] 40 mg PO PC-TID PRN PRN Reason: Gas Discontinued Methylphenidate HCl [Ritalin] 15 mg PO BID Methocarbamol [Robaxin] 1 tab PO BID PRN PRN Reason: Spasms Donepezil [Aricept] 10 mg PO HS Citalopram Hydrobromide [Citalopram HBr] 20 mg PO DAILY ARIPiprazole 2 mg PO HS Memantine [Namenda] 10 mg PO BID Discharge Medication List Thyroid,Pork [[place] Thyroid] 180 mg PO DAILY 03/17/17 [History] Omeprazole [PriLOSEC] 40 mg PO AC-BRKFST 12/12/17 [History] Bisacodyl [Dulcolax] 5 mg PO DAILY PRN #10 tablet. 07/10/18 [Rx] Ondansetron Odt [Zofran ODT] 4 mg PO Q8HR PRN #9 tab 07/10/18 [Rx] HYDROcodone/APAP [[place] Elixir 7.5-325Mg/15Ml] 15 ml PO Q6H PRN #270 solution 07/14/18 [Rx] Furosemide [Lasix] 20 mg PO DAILY #7 tab 07/15/18 [Rx] Amoxic-Pot Clav 250-62.5MG/5Ml [Augmentin 250-62.5 mg/5 ml Susp.] 15 ml PO BID 07/17/18 [History] Potassium Chloride Oral Liquid 40 meq PO DAILY #300 ml 07/17/18 [Rx] Simethicone 40 mg/0.6 ml Drops [Mylicon Drops] 40 mg PO PC-TID PRN 07/17/18 [History] Follow up Appointment(s)/Referral(s): None,Stated [REFERRING] - [facility]2 days [facility] [NON-STAFF] - 07/19/18 1:00 pm Patient Instructions/Handouts: How to Use an Incentive Spirometer (DC), Hypokalemia (DC), Superficial Thrombophlebitis (ED), Nutrition after Bariatric Surgery (DC) Activity/Diet/Wound Care/Special Instructions: Continue to use incentive spirometer daily. Please dissolve potassium completely prior to drinking. Use protein shakes at this time. Take Lasix as described. Discharge Disposition: HOME SELF-CARE
== END 2018-07-17 16:08 | disposition home or self-care (01) ==
LOC: EC 23:58 → 4MS4W 07-17 03:21
PROVIDERS: ADMIT Surgery Plastic and Reconstructive Surgery; ATTEND Surgery Plastic and Reconstructive Surgery
DX: I82.612 Acute embolism and thrombosis of superficial veins of left upper extremity (principal); I80.8 Phlebitis and thrombophlebitis of other sites; T80.1XXA Vascular complications following infusion, transfusion and therapeutic injection, initial encounter; D50.9 Iron deficiency anemia, unspecified; D62 Acute posthemorrhagic anemia; R00.0 Tachycardia, unspecified; E87.6 Hypokalemia; J98.11 Atelectasis; J90 Pleural effusion, not elsewhere classified; R50.9 Fever, unspecified; D72.829 Elevated white blood cell count, unspecified; R74.0 Nonspecific elevation of levels of transaminase and lactic acid dehydrogenase [LDH]; R79.89 Other specified abnormal findings of blood chemistry; R41.3 Other amnesia; E11.41 Type 2 diabetes mellitus with diabetic mononeuropathy; G57.93 Unspecified mononeuropathy of bilateral lower limbs; F32.9 Major depressive disorder, single episode, unspecified; E66.01 Morbid (severe) obesity due to excess calories; Z68.42 Body mass index [BMI] 45.0-49.9, adult; M17.0 Bilateral primary osteoarthritis of knee; M72.2 Plantar fascial fibromatosis; M47.9 Spondylosis, unspecified; K21.9 Gastro-esophageal reflux disease without esophagitis; K58.9 Irritable bowel syndrome, unspecified; G47.33 Obstructive sleep apnea (adult) (pediatric); Z99.89 Dependence on other enabling machines and devices; N20.0 Calculus of kidney; E03.9 Hypothyroidism, unspecified; F98.8 Other specified behavioral and emotional disorders with onset usually occurring in childhood and adolescence; I11.9 Hypertensive heart disease without heart failure; E55.9 Vitamin D deficiency, unspecified; F41.0 Panic disorder [episodic paroxysmal anxiety]; Z98.84 Bariatric surgery status; Z90.49 Acquired absence of other specified parts of digestive tract; Z79.899 Other long term (current) drug therapy; Z79.890 Hormone replacement therapy; Z88.5 Allergy status to narcotic agent; Z88.1 Allergy status to other antibiotic agents; Z88.2 Allergy status to sulfonamides; Z87.891 Personal history of nicotine dependence; T50.1X6A Underdosing of loop [high-ceiling] diuretics, initial encounter; Z98.0 Intestinal bypass and anastomosis status; Z91.19 Patient's noncompliance with other medical treatment and regimen; Z82.49 Family history of ischemic heart disease and other diseases of the circulatory system; Z80.3 Family history of malignant neoplasm of breast; Z80.8 Family history of malignant neoplasm of other organs or systems; Z84.89 Family history of other specified conditions; Z80.1 Family history of malignant neoplasm of trachea, bronchus and lung
CPT/HCPCS: 36415; 71275; 80053; 81003; 83605; 83735; 85025; 85610; 85730; 87040; 87086; 93005; 94640; 96361; 96365; 96366; 96368; 96375; 99285

== ENCOUNTER → 2018-07-19 | Outpatient (CLI) | payer BC, MEDICARE ==
[~2018-07-19] MED LIST changes: +ALBUTEROL NEBULIZED 2.5 MG/3 ML INHALATION ONE; -CHLORHEXIDINE GLUCONATE 15 ML CUP MUCOUS MEM ONE; -DEXAMETHASONE SOD PHOSPHATE 10 MG/ML 1 ML VIAL IV ONE; -ENOXAPARIN 40 MG/0.4 ML SYRINGE SQ STA; -LIDOCAINE 1% 20 ML VIAL (10MG/ML) FOR IV START INTRADERMA PRN; -MIDAZOLAM 2 MG/2 ML VIAL IV PRN; -PANTOPRAZOLE 40 MG/10 ML VIAL IV STA; -ceFAZolin 3 GM in SODIUM CHLORIDE 0.9% 100 ML IVPB ONE; -fentaNYL (PF) 50 MCG/ML 2 ML AMP IV PRN
[2018-07-19 13:43] VITALS: BP 111/65; PULSE 89; TEMP 98.2; BMI 45.4
--- NOTE | 2018-07-19 14:21 | P.PN ---
Subjective Progress Note Date: 07/19/18 HPI: She is responding well to Lasix. She is passing flatus. She is having bowel movement. She is feeling much better. She has superficial clot of the left forearm now resolving . ADBOMEN: No infection or cellulitis ASSESSMENT: 1. Morbid obesity PLAN: 1. Potassium supplement advised 2. Continue incentive spirometry 3. May re-start all medications for 07/24 4. Follow up next week Objective - Vital Signs Vital signs: Vital Signs Temp 98.2 F 07/19/18 13:34 Pulse 89 07/19/18 13:34 Resp BP 111/65 07/19/18 13:34 Pulse Ox Intake & Output 07/18/18 07/19/18 07/19/18 18:59 06:59 18:59 Weight 120.202 kg
== END | disposition home or self-care (01) ==
LOC: BARWHC3 13:14
PROVIDERS: ATTEND Surgery Plastic and Reconstructive Surgery
DX: E66.01 Morbid (severe) obesity due to excess calories (principal); Z71.3 Dietary counseling and surveillance; Z68.42 Body mass index [BMI] 45.0-49.9, adult
CPT/HCPCS: 97803; 99211

== ENCOUNTER → 2018-07-26 | Outpatient (CLI) | payer BC, MEDICARE ==
[~2018-07-26] MED LIST changes: -ALBUTEROL NEBULIZED 2.5 MG/3 ML INHALATION ONE; +SODIUM CHLORIDE 0.9% 500 ML 500 ML in EMPTY BAG 1 BAG IV PRN
[2018-07-26 13:03] VITALS: BP 134/81; PULSE 92; RESP 16; TEMP 98.2
[2018-07-26] MEDS: SODIUM CHLORIDE 0.9% 1,000 ML IV SCH ×2 (13:17→14:09)
[2018-07-26 13:21] LABS: Anisocytosis Slight; Basophils % (A) 1 %; Eosinophils # (A) 0.2 k/uL (0-0.7); Eosinophils % (A) 3 %; HCT 37.4 % (34.0-46.0); Hypochromasia Marked; Lymphocytes # (A) 2.8 k/uL (1.0-4.8); Lymphocytes % (A) 37 %; MCHC 30.9 g/dL (31.0-37.0); MCV 90.7 fL (80.0-100.0); Mean Platelet Volume 7.5; Monocytes # (A) 0.4 k/uL (0-1.0); Monocytes % (A) 6 %; Neutrophils # (A) 3.9 k/uL (1.3-7.7); Neutrophils % (A) 53 %; Platelet Count 501 k/uL (150-450); Poikilocytosis Slight; RBC 4.12 m/uL (3.80-5.40); RDW 16.4 % (11.5-15.5); WBC 7.5 k/uL (3.8-10.6)
[2018-07-26 13:35] LABS: ALT 54 U/L (9-52); AST 58 U/L (14-36); African American GFR (CKD) >90 (>60 ml/min/1.73 sqM); Albumin 4.1 g/dL (3.5-5.0); Alkaline Phosphatase 163 U/L (38-126); Anion Gap 11 mmol/L; Blood Urea Nitrogen 8 mg/dL (7-17); Carbon Dioxide 26 mmol/L (22-30); Chloride 102 mmol/L (98-107); Glucose 98 mg/dL (74-99); Potassium 3.8 mmol/L (3.5-5.1); Sodium 139 mmol/L (137-145); Total Bilirubin 1.3 mg/dL (0.2-1.3); Total Protein 7.2 g/dL (6.3-8.2)
[2018-07-26 13:44] LABS: HGB 11.6 gm/dL (11.4-16.0)
== END ==
LOC: PROCWHC3 12:47
PROVIDERS: ATTEND Surgery Plastic and Reconstructive Surgery
DX: E86.0 Dehydration (principal); Z88.5 Allergy status to narcotic agent; Z88.2 Allergy status to sulfonamides; Z88.1 Allergy status to other antibiotic agents
CPT/HCPCS: 36415; 80053; 85025; 96360; 96361

== ENCOUNTER → 2018-07-26 | Outpatient (CLI) | payer BC, MEDICARE ==
--- NOTE | 2018-07-26 13:05 | P.PN ---
Subjective Progress Note Date: 07/26/18 DATE OF SERVICE: 07/26/2018 CHIEF COMPLAINT: Status post gastric bypass HISTORY OF PRESENT ILLNESS: Naz Christine is a 43-year-old female who is status post gastric bypass, 07/10/2018. She is POD 13. She reports dehydration. She has troubles with taking her medications. She reports diarrhea. She reports mild dysphagia. She is back on celexa, thyroid medication and prilosec. At height of 5 feet 4 inches, his ideal body weight is 144 pounds. Her highest personal weight was 296 pounds. Her body mass index was 50.9. She comes in 249 pounds from 264 pounds, 7 days ago. She has lost 15 pounds in 7 days. Lifetime weight loss of 47 pounds. Her percent excess weight loss is 31%. Her body mass i ndex is 42.9. She is 105 pounds overweight. PHYSICAL EXAM: VITAL SIGNS: Height 5 foot 4 inches, weight 249 pounds. BMI 42.9 Vital Signs Temp 98.2 F 07/26/18 13:50 Pulse 91 07/26/18 13:50 Resp BP 134/81 07/26/18 13:50 Pulse Ox GENERAL: Well-developed in no acute distress. HEENT: No scleral icterus. Extraocular movements grossly intact. Hears conversational speech. No nasal drainage. NECK: Supple without lymphadenopathy. CHEST: Nonlabored respirations with equal bilateral excursions. CARDIOVASCULAR: Regular rate and regular rhythm. Distal 2+ pulses. ABDOMEN: Incisions are granulated. Mild seroma of the left upper. No infection. MUSCULOSKELETAL: No clubbing, cyanosis. Left arm superficial venous thrombosis is resolved. NEURO: No focal or lateralizing signs. Cranial nerves 2 through 12 grossly within normal limits. PSYCH: Appropriate affect. Alert and oriented to person, place and time. SKIN: Good skin turgor. Well perfused. ASSESSMENT: 1. Morbid obesity due to excess calories. 2. Body mass index prior 50.9 down to 42.9 3. Osteoarthritis of the knees. 4. Plantar fasciitis 5. Osteoarthritis of the lower back. 6. Gastroesophageal reflux disease 7. Irritable bowel syndrome 8. Obstructive sleep apnea 9. Kidney stones 10. Diabetes type 2 11. Hypothyroidism 12. Attention deficit disorder 13. Depression 14. Bilateral lower extremity neuropathy 15. Memory disorder 16. Hypertensive heart disease 17. Vitamin D deficiency 18. Hypokalemia, resolved 19. Status post gastric bypass 20. Dietary surveillance and counseling 21. Left venous thrombosis of the arm PLAN: 1. She is tolerating pureed foods. 2. Flavorless protein advised as she is a picky eater. 3. IV fluid hydration
[2018-07-26 13:58] VITALS: BP 134/81; PULSE 91; TEMP 98.2; BMI 42.9
== END | disposition home or self-care (01) ==
LOC: BARWHC3 12:48
PROVIDERS: ATTEND Surgery Plastic and Reconstructive Surgery
DX: Z48.815 Encounter for surgical aftercare following surgery on the digestive system (principal); E66.01 Morbid (severe) obesity due to excess calories; M17.0 Bilateral primary osteoarthritis of knee; M72.2 Plantar fascial fibromatosis; M47.816 Spondylosis without myelopathy or radiculopathy, lumbar region; K21.9 Gastro-esophageal reflux disease without esophagitis; K58.0 Irritable bowel syndrome with diarrhea; G47.33 Obstructive sleep apnea (adult) (pediatric); N20.0 Calculus of kidney; E03.9 Hypothyroidism, unspecified; E11.41 Type 2 diabetes mellitus with diabetic mononeuropathy; F98.8 Other specified behavioral and emotional disorders with onset usually occurring in childhood and adolescence; F32.9 Major depressive disorder, single episode, unspecified; I11.9 Hypertensive heart disease without heart failure; E55.9 Vitamin D deficiency, unspecified; I82.602 Acute embolism and thrombosis of unspecified veins of left upper extremity; R41.3 Other amnesia; Z71.3 Dietary counseling and surveillance; Z68.41 Body mass index [BMI] 40.0-44.9, adult; Z98.84 Bariatric surgery status
CPT/HCPCS: 99211

== ENCOUNTER → 2018-08-03 | Outpatient (CLI) | payer BC, MEDICARE ==
--- NOTE | 2018-08-03 16:54 | XR ---
EXAMINATION TYPE: XR chest 2V DATE OF EXAM: 08/03/2018 COMPARISON: Prior chest x-ray 07/13/2018 HISTORY: R06.4, shortness of breath, R07.9 TECHNIQUE: Frontal and lateral views of the chest are obtained. FINDINGS: There is no focal air space opacity, pleural effusion, or pneumothorax seen. The cardiac silhouette size is within normal limits. The osseous structures are intact. Surgical clips are pres ent in the right upper quadrant. The aorta is dense. IMPRESSION: No acute cardiopulmonary process.
== END ==
LOC: BARWHC3 11:29
PROVIDERS: ATTEND Surgery Plastic and Reconstructive Surgery
DX: R07.9 Chest pain, unspecified (principal); R06.4 Hyperventilation; Z88.2 Allergy status to sulfonamides; Z88.5 Allergy status to narcotic agent; Z88.1 Allergy status to other antibiotic agents
CPT/HCPCS: 71046

== ENCOUNTER → 2018-08-03 | Outpatient (CLI) | payer BC, MEDICARE ==
[~2018-08-03] MED LIST changes: +SODIUM CHLORIDE 0.9% 2,000 ML IV ONE
[2018-08-03 09:08] VITALS: BP 123/81; PULSE 80; RESP 18; TEMP 97.7
[2018-08-03] MEDS: SODIUM CHLORIDE 0.9% 1,000 ML IV SCH ×2 (09:20→10:00)
--- NOTE | 2018-08-03 13:50 | P.PN ---
Subjective Progress Note Date: 08/03/18 She is tolerating over 90 g of protein daily. She tolerates protein shakes. She has an aversion to plain water. Other alternatives for drinking water described. She does report occasional left chest pain along the lower ribs. Otherwise no further pain along the left upper quadrant incision. Follow-up within 1-2 weeks. IV fluid hydration described. Objective - Vital Signs Vital signs: Vital Signs Temp 97.7 F 08/03/18 08:57 Pulse 80 08/03/18 08:57 Resp 18 08/03/18 08:57 BP 123/81 08/03/18 08:57 Pulse Ox 98 08/03/18 08:57 Intake & Output 08/02/18 08/03/18 08/03/18 18:59 06:59 18:59 Weight 109.769 kg
== END ==
LOC: PROCWHC3 08:42
PROVIDERS: ATTEND Surgery Plastic and Reconstructive Surgery
DX: E86.0 Dehydration (principal)
CPT/HCPCS: 96360; 96361

== ENCOUNTER → 2018-08-16 | Outpatient (CLI) | payer BC, MEDICARE ==
[2018-08-16 12:46] VITALS: RESP 16; BMI 40.3
--- NOTE | 2018-08-16 13:18 | P.PN ---
Subjective Progress Note Date: 08/16/18 She has trouble wit textured foods. She cannot tolerate the smell of foods. She can tolerate mash potatoes, popsicles, cottage cheese, eggs. No dysphagia. PLAN: 1. She still reports taking unflavored foods 2. She has lost 30 pounds! 3. She reports trouble with hydration 4. She reports pain of kidneys both sides and is dehydrated. 5. Get labs today. Objective - Vital Signs Vital signs: Vital Signs Temp Pulse Resp 16 08/16/18 12:42 BP Pulse Ox Intake & Output 08/15/18 08/16/18 08/16/18 18:59 06:59 18:59 Weight 106.594 kg
[2018-08-16 13:51] VITALS: BP 101/78; PULSE 77; TEMP 98.1
[2018-08-16] MEDS: SODIUM CHLORIDE 0.9% 1,000 ML IV SCH ×2 (13:55→15:10)
[2018-08-16 16:42] LABS: HCT 38.7 % (34.0-46.0); HGB 12.3 gm/dL (11.4-16.0); Hypochromasia Slight; MCH 27.9 pg (25.0-35.0); MCHC 31.9 g/dL (31.0-37.0); MCV 87.4 fL (80.0-100.0); Mean Platelet Volume 8.8; RBC 4.42 m/uL (3.80-5.40); RDW 15.2 % (11.5-15.5); WBC 6.4 k/uL (3.8-10.6)
[2018-08-16 16:52] LABS: ALT 36 U/L (9-52); AST 46 U/L (14-36); African American GFR (CKD) >90 (>60 ml/min/1.73 sqM); Albumin 3.9 g/dL (3.5-5.0); Alkaline Phosphatase 76 U/L (38-126); Anion Gap 13 mmol/L; Blood Urea Nitrogen 5 mg/dL (7-17); Calcium 8.3 mg/dL (8.4-10.2); Carbon Dioxide 24 mmol/L (22-30); Chloride 103 mmol/L (98-107); Cholesterol 141 mg/dL (<200); Glucose 83 mg/dL (74-99); HDL Cholesterol 48 mg/dL (40-60); LDL Cholesterol,Calculated 74 mg/dL (0-99); Magnesium 1.7 mg/dL (1.6-2.3); Phosphorus 3.4 mg/dL (2.5-4.5); Potassium 3.2 mmol/L (3.5-5.1); Sodium 140 mmol/L (137-145); Total Bilirubin 0.9 mg/dL (0.2-1.3); Total Protein 6.6 g/dL (6.3-8.2); Triglycerides 97 mg/dL (<150)
[2018-08-16 16:57] LABS: Partial Thromboplastin Time 28.1 sec (22.0-30.0); Prothrombin Time 10.9 sec (9.0-12.0)
[2018-08-16 17:06] LABS: Platelet Count 153 k/uL (150-450)
[2018-08-16 23:17] LABS: Parathyroid Hormone Intact 75.7 pg/mL (14.0-72.0)
[2018-08-16 23:32] LABS: Vitamin D 25 Hydroxy 27.5 ng/mL (30.0-100.0)
[2018-08-16 23:36] LABS: Folate, Serum 14.2 ng/mL; Iron Saturation 11.24 (12.00-45.00)
[2018-08-17 03:29] LABS: Hemoglobin A1C 4.8 % (4.0-6.0)
[2018-08-17 13:04] LABS: Zinc, Serum 91 ug/dL (60-130)
[2018-08-17 13:40] LABS: Vit B1(Thiamine) 33 ug/L (38-122)
[2018-08-18 06:45] LABS: Vitamin A 13 ug/dL (38-106)
== END | disposition home or self-care (01) ==
LOC: BARWHC3 12:25
PROVIDERS: ATTEND Surgery Plastic and Reconstructive Surgery
DX: E86.0 Dehydration (principal); E66.01 Morbid (severe) obesity due to excess calories; E21.1 Secondary hyperparathyroidism, not elsewhere classified; E89.1 Postprocedural hypoinsulinemia; D50.9 Iron deficiency anemia, unspecified; K90.9 Intestinal malabsorption, unspecified; E55.9 Vitamin D deficiency, unspecified; K76.9 Liver disease, unspecified; N19 Unspecified kidney failure; K50.90 Crohn's disease, unspecified, without complications; Z68.41 Body mass index [BMI] 40.0-44.9, adult
CPT/HCPCS: 80053; 80061; 82306; 82525; 82607; 82728; 82746; 83036; 83540; 83550; 83735; 83970; 84100; 84134; 84255; 84425; 84443; 84590; 84630; 85027; 85610; 85730; 96360; 96361; 97803; 99211

== ENCOUNTER → 2018-08-22 | Outpatient (CLI) | payer BC, MEDICARE ==
[~2018-08-22] MED LIST changes: +MAGNESIUM SULFATE-D5W PMX 1 GM in DEXTROSE/WATER 1 100ML.BAG IVPB NR; -SODIUM CHLORIDE 0.9% 2,000 ML IV ONE; +THIAMINE 100 MG/ML 2 ML VIAL IVP NR
[2018-08-22] MEDS: SODIUM CHLORIDE 0.9% 1,000 ML IV SCH ×2 (12:25→13:37)
[2018-08-22 12:55] VITALS: BP 125/78; PULSE 77; RESP 16; TEMP 98.7
== END | disposition home or self-care (01) ==
LOC: PROCWHC3 11:53
PROVIDERS: ATTEND Surgery Plastic and Reconstructive Surgery
DX: E83.42 Hypomagnesemia (principal); E51.9 Thiamine deficiency, unspecified; E86.0 Dehydration
CPT/HCPCS: 96360; 96361; 96367; 96375; J3411; J3475

== ENCOUNTER → 2018-09-29 | Day surgery (SDC) | payer BC, MEDICARE ==
[2018-09-27 11:39] VITALS: BMI 36.8
[~2018-09-29] MED LIST changes: +LACTATED RINGERS 1,000 ML IV SCH; +LIDOCAINE 1% 20 ML VIAL (10MG/ML) FOR IV START INTRADERMA PRN; +LIDOCAINE 1% INJ 10MG/ML (20 ML MDV) ONE; -MAGNESIUM SULFATE-D5W PMX 1 GM in DEXTROSE/WATER 1 100ML.BAG IVPB NR; +PROPOFOL 10 MG/ML 20 ML VIAL IV ONE; -SODIUM CHLORIDE 0.9% 500 ML 500 ML in EMPTY BAG 1 BAG IV PRN; -THIAMINE 100 MG/ML 2 ML VIAL IVP NR
[2018-09-29 07:04] VITALS: TEMP 97.6
[2018-09-29 07:06] LABS: Glucose,Whole Blood 90 mg/dL (75-99)
--- NOTE | 2018-09-29 07:37 | P.GSHP ---
History of Present Illness H&P Date: 09/29/18 CHIEF COMPLAINT: GERD HISTORY OF PRESENT ILLNESS: The patient is a 43-year-old female who presents reports gastroesophageal reflux disease. Upper endoscopy was offered for further evaluation and management. PAST MEDICAL HISTORY: Please see list. PAST SURGICAL HISTORY: Please see list. MEDICATIONS: Please see list. ALLERGIES: Please see list. SOCIAL HISTORY: No illicit drug use FAMILY HISTORY: No reports of Crohn disease or ulcerative colitis. REVIEW OF ORGAN SYSTEMS: CONSTITUTIONAL: No reports of fevers or chills. GI: Denies any blood in stools or constipation. PHYSICAL EXAM: VITAL SIGNS: Stable GENERAL: Well-developed and pleasant in no acute distress. HEENT: No scleral icterus. Extraocular movements grossly intact. Moist buccal mucosa. NECK: Supple without lymphadenopathy. CHEST: Unlabored respirations. Equal bilateral excursions. CARDIOVASCULAR: Regular rate and rhythm. Distal 2+ pulses. ABDOMEN: Soft, nondistended. MUSCULOSKELETAL: No clubbing, cyanosis, or edema. ASSESSMENT: 1. Gastroesophageal reflux disease PLAN: 1. Recommend proceeding with an upper endoscopy Past Medical History Past Medical History: Diabetes Mellitus, Memory Impairment, Neurologic Disorder, Osteoarthritis (OA), Sleep Apnea/CPAP/BIPAP, Thyroid Disorder Additional Past Medical History / Comment(s): Takes Namenda and Ritalin to help her focus due to memory loss. Arrythmia & heart racing, PVC's. Kidney/uric acid stones, bilateral leg neuropathy, joint pain in bilateral knees. NO DM Rx since 07/2018 surgery. Not using CPAP currently. Dysphagia, food getting stuck for past month. History of Any Multi-Drug Resistant Organisms: None Reported Past Surgical History: Bariatric Surgery, Bladder Surgery, Section, Cholecystectomy Additional Past Surgical History / Comment(s): cesearean section x5, bladder surgery with mesh implant, Renal stents, Mino-en-Y sx 07/10/18 gastric bypass 07-10-18 Past Anesthesia/Blood Transfusion Reactions: Previous Problems w/ Anesthesia Additional Past Anesthesia/Blood Transfusion Reaction / Comment(s): With 07/2018 OR blood pressure went really high, after it bottomed out. Recieved blood transfusion 2 units with no reactions. Mother slow to awaken from Anesthesia. Smoking Status: Former smoker - Past Family History Mother Family Medical History: Cancer, Coronary Artery Disease (CAD), Diabetes Mellitus, Deep Vein Thrombosis (DVT), Thyroid Disorder Additional Family Medical History / Comment(s): Type 2 Dm, Piagets Disease, Breast cancer survivor Sister(s) Family Medical History: Diabetes Mellitus, Thyroid Disorder Additional Family Medical History / Comment(s): sister #1: Type 2 DM hypothyroidism. Sister 2: Thyroid cancer (and hyperthyroidism) Father Family Medical History: Cancer, Coronary Artery Disease (CAD), Deep Vein Thrombosis (DVT), Pulmonary Embolus Additional Family Medical History / Comment(s): lung cancer survivor (mesothelioma from asbestos lining ships in [place]). Hx [place] blood clot. Medications and Allergies Home Medications Medication Instructions Recorded Confirmed Type Thyroid,Pork [[place] Thyroid] 180 mg PO DAILY 03/17/17 09/27/18 History Omeprazole [PriLOSEC] 40 mg PO AC-BRKFST 12/12/17 09/27/18 History Simethicone 40 mg/0.6 ml Drops 40 mg PO PC-TID PRN 07/17/18 09/27/18 History [Mylicon Drops] Citalopram Hydrobromide [CeleXA] 20 mg PO DAILY 08/17/18 09/27/18 History ARIPiprazole [Abilify] 2 mg PO DAILY 09/27/18 09/27/18 History Bariactive (Multivitamin) 1 tab PO BID 09/27/18 History Biotin (Unknown Dose) 1 tab PO DAILY 09/27/18 History Calcium, Vitamin D3, Magnesium 2 tab PO DAILY 09/27/18 History Cbd Oil 5 mg PO DAILY 09/27/18 History Donepezil HCl [Aricept] 10 mg PO BID 09/27/18 09/27/18 History Iron With Vitamin C 54 mg PO BID 09/27/18 History Memantine [Namenda] 10 mg PO BID 09/27/18 09/27/18 History Vitamin B12 Nasal [place] 1 spray INHALATION Q7D 09/27/18 History Allergies Allergy/AdvReac Type Severity Reaction Status Date / Time codeine Allergy Rash/Hives Verified 09/29/18 06:44 levofloxacin [From Levaquin] Allergy Swelling Verified 09/29/18 06:44 morphine Allergy Rash/Hives Verified 09/29/18 06:44 Sulfa (Sulfonamide Allergy Anaphylaxis Verified 09/29/18 06:44 Antibiotics) sulfamethoxazole Allergy Rash/Hives Verified 09/29/18 06:44 [From Bactrim] trimethoprim [From Bactrim] Allergy Rash/Hives Verified 09/29/18 06:44 Surgical - Exam Vital Signs Temp Pulse Resp BP Pulse Ox 97.6 F 72 16 103/57 98 09/29/18 06:56 09/29/18 06:56 09/29/18 06:56 09/29/18 06:56 09/29/18 06:56
--- NOTE | 2018-09-29 07:53 | P.PCN ---
Date of Procedure: 09/29/18 Description of Procedure: PREOPERATIVE DIAGNOSIS: Gastroesophageal reflux disease Dysphagia. s/p Mino-en-y gastric bypass. Nausea with vomiting. Morbid obesity. POSTOPERATIVE DIAGNOSIS: Dysphagia. s/p Mino-en-y gastric bypass. Nausea with vomiting. Morbid obesity. 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 SURGEON: Violet Barahona MD ANESTHESIA: MAC. INDICATIONS: The patient is a 43-year-old female who presents with a history of gastroesophageal reflux disease, dysphagia, gastric bypass including nausea and vomiting. Benefits and risks of the procedure were described. Informed consent was obtained. DESCRIPTION: The patient was brought into the endoscopy suite and laid in the left lateral decubitus position. After a timeout was confirmed, the procedure was initiated. An Olympus gastroscope was passed along the posterior oropharynx down to the distal esophagus where the squamocolumnar junction was unremarkable. The gastric pouch was entered. A gastrojejunal stricture of 5 mm was found as the adult gastroscope was 9.5 mm in size. A [employer] balloon dilator was placed through the scope. Final insufflation up to 10 mm was performed with a total of 2 minutes. The scope was advanced up to 60 cm from the incisors into the Mino limb. The mucosa of the gastrojejunal anastomosis was intact with bleeding. No chronic gastrojejunal marginal ulcer was encountered. No full-thickness injury was encountered. The GI tract was desufflated. The patient tolerated the procedure well. FINDINGS: Stricture of approximately 5 mm encountered. Successful balloon dilatation to 10 mm. RECOMMENDATIONS: Schedule 40 mg daily Repeat upper endoscopy with dilation 2-3 weeks Plan - Discharge Summary Discharge Rx Participant: No New Discharge Prescriptions: New Omeprazole 40 mg PO DAILY #90 capsule.dr Humphrey Action Thyroid,Pork [[place] Thyroid] 180 mg PO DAILY Omeprazole [PriLOSEC] 40 mg PO AC-BRKFST Simethicone 40 mg/0.6 ml Drops [Mylicon Drops] 40 mg PO PC-TID PRN PRN Reason: Gas Citalopram Hydrobromide [CeleXA] 20 mg PO DAILY Memantine [Namenda] 10 mg PO BID Donepezil HCl [Aricept] 10 mg PO BID ARIPiprazole [Abilify] 2 mg PO DAILY Vitamin B12 Nasal [place] 1 spray INHALATION Q7D Iron With Vitamin C 54 mg PO BID Cbd Oil 5 mg PO DAILY Calcium, Vitamin D3, Magnesium 2 tab PO DAILY Biotin (Unknown Dose) 1 tab PO DAILY Bariactive (Multivitamin) 1 tab PO BID Discharge Medication List Thyroid,Pork [[place] Thyroid] 180 mg PO DAILY 03/17/17 [History] Omeprazole [PriLOSEC] 40 mg PO AC-BRKFST 12/12/17 [History] Simethicone 40 mg/0.6 ml Drops [Mylicon Drops] 40 mg PO PC-TID PRN 07/17/18 [History] Citalopram Hydrobromide [CeleXA] 20 mg PO DAILY 08/17/18 [History] ARIPiprazole [Abilify] 2 mg PO DAILY 09/27/18 [History] Bariactive (Multivitamin) 1 tab PO BID 09/27/18 [History] Biotin (Unknown Dose) 1 tab PO DAILY 09/27/18 [History] Calcium, Vitamin D3, Magnesium 2 tab PO DAILY 09/27/18 [History] Cbd Oil 5 mg PO DAILY 09/27/18 [History] Donepezil HCl [Aricept] 10 mg PO BID 09/27/18 [History] Iron With Vitamin C 54 mg PO BID 09/27/18 [History] Memantine [Namenda] 10 mg PO BID 09/27/18 [History] Vitamin B12 Nasal [place] 1 spray INHALATION Q7D 09/27/18 [History] Omeprazole 40 mg PO DAILY #90 capsule. 09/29/18 [Rx] Follow up Appointment(s)/Referral(s): [facility] [[facility]] - 10/11/18 Patient Instructions/Handouts: Esophageal Dilation (DC) Activity/Diet/Wound Care/Special Instructions: Will need repeat upper endoscopy in 2-3 weeks. Take omeprazole as scheduled. Beverages only including liquid diet. Discharge Disposition: HOME SELF-CARE
[2018-09-29 07:55] VITALS: RESP 17
[2018-09-29 08:12] VITALS: BP 101/71; PULSE 70
== END | disposition home or self-care (01) ==
LOC: ORWHC2ENDO 06:30
PROVIDERS: ATTEND Surgery Plastic and Reconstructive Surgery
DX: K95.89 Other complications of other bariatric procedure (principal); R13.10 Dysphagia, unspecified; K31.89 Other diseases of stomach and duodenum; K21.9 Gastro-esophageal reflux disease without esophagitis; E66.01 Morbid (severe) obesity due to excess calories; M19.90 Unspecified osteoarthritis, unspecified site; Z79.899 Other long term (current) drug therapy; Z82.49 Family history of ischemic heart disease and other diseases of the circulatory system; Z87.442 Personal history of urinary calculi; E11.40 Type 2 diabetes mellitus with diabetic neuropathy, unspecified; Z87.891 Personal history of nicotine dependence; Z98.84 Bariatric surgery status; Z90.49 Acquired absence of other specified parts of digestive tract; Z88.2 Allergy status to sulfonamides; Z88.1 Allergy status to other antibiotic agents; Z83.3 Family history of diabetes mellitus; Z80.8 Family history of malignant neoplasm of other organs or systems; Z80.3 Family history of malignant neoplasm of breast; Z80.1 Family history of malignant neoplasm of trachea, bronchus and lung; Z79.51 Long term (current) use of inhaled steroids; Z88.5 Allergy status to narcotic agent; Z79.890 Hormone replacement therapy; Y83.6 Removal of other organ (partial) (total) as the cause of abnormal reaction of the patient, or of later complication, without mention of misadventure at the time of the procedure; Z68.36 Body mass index [BMI] 36.0-36.9, adult
CPT/HCPCS: 81025; 43245; J2001; J2704

== ENCOUNTER → 2018-10-11 | Outpatient (CLI) | payer BC, MEDICARE ==
--- NOTE | 2018-10-11 13:38 | P.PN ---
Subjective Progress Note Date: 10/11/18 HPI: She has been a pickey eater. She has now found protein shakes that she can tolerate Ensure Max Protein. She struggles with eating chicken. She has occasional food getting stuck. She has lost 75 pounds in 3 months. ABDOMEN: Nontender ASSESSMENT: 1. Morbid obesity PLAN: 1. Repeat EGD with dilation week of Oct 27 2. Severe Hypothyroidism 3. Needs thiamine infusion 4. Vitamin A supplement 20,000 U daily
[2018-10-11 13:53] VITALS: BP 102/68; PULSE 68; TEMP 98.6; BMI 36.6
[2018-10-11 15:05] LABS: HCT 39.3 % (34.0-46.0); HGB 12.6 gm/dL (11.4-16.0); MCH 27.8 pg (25.0-35.0); MCV 86.8 fL (80.0-100.0); Mean Platelet Volume 8.8; Platelet Count 188 k/uL (150-450); RBC 4.52 m/uL (3.80-5.40); RDW 15.8 % (11.5-15.5)
[2018-10-11 15:13] LABS: Prothrombin Time 10.8 sec (9.0-12.0)
[2018-10-11 20:10] LABS: African American GFR (CKD) 146.8 (60.0-200.0); Albumin 3.7 g/dL (3.80-4.90); Albumin/Globulin Ratio 2.06 (1.60-3.17); Anion Gap 7.6 mmol/L (4.00-12.00); BUN/Creat Ratio 22.5 Ratio (12.00-20.00); Calcium 8.8 mg/dL (8.7-10.3); Carbon Dioxide 28.4 mmol/L (21.6-31.8); Chol/HDL Ratio 2.59; Globulin 1.8 g/dL (1.6-3.3); Magnesium 1.8 mg/dL (1.5-2.4); Phosphorus 3.1 mg/dL (2.4-5.1); Potassium 3.7 mmol/L (3.5-5.5); Total Bilirubin 0.4 mg/dL (0.3-1.2); Total Protein 5.5 g/dL (6.2-8.2)
[2018-10-11 20:20] LABS: Folate, Serum 9.5 ng/mL; Vitamin D 25 Hydroxy 44.3 ng/mL (30.0-100.0)
[2018-10-11 21:03] LABS: Iron Saturation 21.43 (12.00-45.00)
[2018-10-11 23:38] LABS: Hemoglobin A1C 5.5 % (4.0-6.0)
[2018-10-12 14:00] LABS: Zinc, Serum 62 ug/dL (60-130)
[2018-10-13 06:56] LABS: Vitamin A 18 ug/dL (38-106)
== END | disposition home or self-care (01) ==
LOC: BARWHC3 12:30
PROVIDERS: ATTEND Surgery Plastic and Reconstructive Surgery
DX: E66.01 Morbid (severe) obesity due to excess calories (principal); Z68.36 Body mass index [BMI] 36.0-36.9, adult; Z71.3 Dietary counseling and surveillance
CPT/HCPCS: 36415; 80053; 80061; 82306; 82525; 82607; 82728; 82746; 83036; 83540; 83550; 83735; 83970; 84100; 84134; 84255; 84425; 84443; 84590; 84630; 85027; 85610; 85730; 97803; 99211

== ENCOUNTER 2018-10-27 06:05 | Day surgery (SDC) | payer BC, MEDICARE ==
[2018-10-26 09:26] VITALS: BMI 36.3
[~2018-10-27 06:05] MED LIST changes: -LIDOCAINE 1% INJ 10MG/ML (20 ML MDV) ONE; -PROPOFOL 10 MG/ML 20 ML VIAL IV ONE
--- NOTE | 2018-10-27 06:29 | P.GSHP ---
History of Present Illness H&P Date: 10/27/18 CHIEF COMPLAINT: GERD HISTORY OF PRESENT ILLNESS: The patient is a 43-year-old female who presents reports gastroesophageal reflux disease. Upper endoscopy was offered for further evaluation and management. PAST MEDICAL HISTORY: Please see list. PAST SURGICAL HISTORY: Please see list. MEDICATIONS: Please see list. ALLERGIES: Please see list. SOCIAL HISTORY: No illicit drug use FAMILY HISTORY: No reports of Crohn disease or ulcerative colitis. REVIEW OF ORGAN SYSTEMS: CONSTITUTIONAL: No reports of fevers or chills. GI: Denies any blood in stools or constipation. PHYSICAL EXAM: VITAL SIGNS: Stable GENERAL: Well-developed and pleasant in no acute distress. HEENT: No scleral icterus. Extraocular movements grossly intact. Moist buccal mucosa. NECK: Supple without lymphadenopathy. CHEST: Unlabored respirations. Equal bilateral excursions. CARDIOVASCULAR: Regular rate and rhythm. Distal 2+ pulses. ABDOMEN: Soft, nondistended. MUSCULOSKELETAL: No clubbing, cyanosis, or edema. ASSESSMENT: 1. Gastroesophageal reflux disease PLAN: 1. Recommend proceeding with an upper endoscopy Past Medical History Past Medical History: Diabetes Mellitus, Memory Impairment, Neurologic Disorder, Osteoarthritis (OA), Sleep Apnea/CPAP/BIPAP, Thyroid Disorder Additional Past Medical History / Comment(s): Takes Namenda and Ritalin to help her focus due to memory loss. , arrythmia & heart racing, kidney/uric acid stones, bilateral leg neuropathy, joint pain in bilateral knees, DIET CONTROL DIABETES History of Any Multi-Drug Resistant Organisms: None Reported Past Surgical History: Bariatric Surgery, Bladder Surgery, Section, Cholecystectomy, Uterine Ablation Additional Past Surgical History / Comment(s): cesearean section x5, bladder surgery with mesh implant, renal stents, rueny sx 07/10/18 gastric bypass 07-10-18, EGD WITH DILATATION Past Anesthesia/Blood Transfusion Reactions: No Reported Reaction Additional Past Anesthesia/Blood Transfusion Reaction / Comment(s): recieved blood transfusion 2 units with no reactions Smoking Status: Former smoker - Past Family History Mother Family Medical History: Cancer, Coronary Artery Disease (CAD), Diabetes Mellitus, Deep Vein Thrombosis (DVT), Thyroid Disorder Additional Family Medical History / Comment(s): Type 2 Dm, Piagets Disease, Breast cancer survivor Sister(s) Family Medical History: Diabetes Mellitus, Thyroid Disorder Additional Family Medical History / Comment(s): sister #1: Type 2 DM hypothyroidism. Sister 2: Thyroid cancer (and hyperthyroidism) Father Family Medical History: Cancer, Coronary Artery Disease (CAD), Deep Vein Thrombosis (DVT), Pulmonary Embolus Additional Family Medical History / Comment(s): lung cancer survivor (mesothelioma from asbestos lining ships in [employer]). Hx [place] blood clot. Medications and Allergies Home Medications Medication Instructions Recorded Confirmed Type Thyroid,Pork [[place] Thyroid] 180 mg PO DAILY 03/17/17 10/11/18 History Omeprazole [PriLOSEC] 40 mg PO AC-BRKFST 12/12/17 10/11/18 History Citalopram Hydrobromide [CeleXA] 20 mg PO DAILY 08/17/18 10/11/18 History ARIPiprazole [Abilify] 2 mg PO DAILY 09/27/18 10/11/18 History Bariactive (Multivitamin) 1 tab PO BID 09/27/18 10/11/18 History Biotin (Unknown Dose) 1 tab PO DAILY 09/27/18 10/11/18 History Calcium, Vitamin D3, Magnesium 2 tab PO DAILY 09/27/18 10/11/18 History Cbd Oil 5 mg PO DAILY 09/27/18 10/11/18 History Donepezil HCl [Aricept] 10 mg PO BID 09/27/18 10/11/18 History Iron With Vitamin C 54 mg PO BID 09/27/18 10/11/18 History Memantine [Namenda] 10 mg PO BID 09/27/18 10/11/18 History Vitamin B12 Nasal [place] 1 spray INHALATION Q7D 09/27/18 10/11/18 History Omeprazole 40 mg PO DAILY #90 capsule. 09/29/18 10/11/18 Rx Allergies Allergy/AdvReac Type Severity Reaction Status Date / Time codeine Allergy Rash/Hives Verified 10/26/18 09:16 levofloxacin [From Levaquin] Allergy Swelling Verified 10/26/18 09:16 morphine Allergy Rash/Hives Verified 10/26/18 09:16 Sulfa (Sulfonamide Allergy Anaphylaxis Verified 10/26/18 09:16 Antibiotics) sulfamethoxazole Allergy Rash/Hives Verified 10/26/18 09:16 [From Bactrim] trimethoprim [From Bactrim] Allergy Rash/Hives Verified 10/26/18 09:16
[2018-10-27 06:54] VITALS: TEMP 98.4
[2018-10-27 07:04] LABS: Glucose,Whole Blood 81 mg/dL (75-99)
[2018-10-27] MEDS ORDERED: LIDOCAINE 1% INJ 10MG/ML (20 ML MDV) ONE (07:10)
[2018-10-27] MEDS ORDERED: PROPOFOL 10 MG/ML 20 ML VIAL IV ONE (07:10)
--- NOTE | 2018-10-27 07:34 | P.PCN ---
Date of Procedure: 10/27/18 Description of Procedure: PREOPERATIVE DIAGNOSIS: Gastroesophageal reflux disease Dysphagia. 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 SURGEON: Violet Barahona MD ANESTHESIA: MAC. INDICATIONS: The patient is a 43-year-old female who presents with a history of gastroesophageal reflux disease, dysphagia, gastric bypass including nausea and vomiting. Benefits and risks of the procedure were described. Informed consent was obtained. DESCRIPTION: The patient was brought into the endoscopy suite and laid in the left lateral decubitus position. After a timeout was confirmed, the procedure was initiated. An Olympus gastroscope was passed along the posterior oropharynx down to the distal esophagus where the squamocolumnar junction was unremarkable. The gastric pouch was entered. A gastrojejunal stricture of 9 mm was found as the adult gastroscope was 9.5 mm in size. A [employer] balloon dilator was placed through the scope. Final insufflation up to 10 mm was performed with a total of 2 minutes. The scope was advanced up to 60 cm from the incisors into the Mino limb. The mucosa of the gastrojejunal anastomosis was intact with bleeding. No chronic gastrojejunal marginal ulcer was encountered. No full-thickness injury was encountered. The GI tract was desufflated. The patient tolerated the procedure well. FINDINGS: Stricture of approximately 9 mm encountered. Successful balloon dilatation to 12 mm. RECOMMENDATIONS: Repeat upper endoscopy with dilation 4 weeks Plan - Discharge Summary Discharge Rx Participant: No New Discharge Prescriptions: No Action Thyroid,Pork [[place] Thyroid] 180 mg PO DAILY Omeprazole [PriLOSEC] 40 mg PO AC-BRKFST Citalopram Hydrobromide [CeleXA] 20 mg PO DAILY Memantine [Namenda] 10 mg PO BID Donepezil HCl [Aricept] 10 mg PO BID ARIPiprazole [Abilify] 2 mg PO DAILY Vitamin B12 Nasal [place] 1 spray INHALATION Q7D Iron With Vitamin C 54 mg PO BID Cbd Oil 5 mg PO DAILY Calcium, Vitamin D3, Magnesium 2 tab PO DAILY Biotin (Unknown Dose) 1 tab PO DAILY Bariactive (Multivitamin) 1 tab PO BID Discharge Medication List Thyroid,Pork [[place] Thyroid] 180 mg PO DAILY 03/17/17 [History] Omeprazole [PriLOSEC] 40 mg PO AC-BRKFST 12/12/17 [History] Citalopram Hydrobromide [CeleXA] 20 mg PO DAILY 08/17/18 [History] ARIPiprazole [Abilify] 2 mg PO DAILY 09/27/18 [History] Bariactive (Multivitamin) 1 tab PO BID 09/27/18 [History] Biotin (Unknown Dose) 1 tab PO DAILY 09/27/18 [History] Calcium, Vitamin D3, Magnesium 2 tab PO DAILY 09/27/18 [History] Cbd Oil 5 mg PO DAILY 09/27/18 [History] Donepezil HCl [Aricept] 10 mg PO BID 09/27/18 [History] Iron With Vitamin C 54 mg PO BID 09/27/18 [History] Memantine [Namenda] 10 mg PO BID 09/27/18 [History] Vitamin B12 Nasal [place] 1 spray INHALATION Q7D 09/27/18 [History] Follow up Appointment(s)/Referral(s): [facility] [place], [place] [NON-STAFF] - 11/20/18 (Repeat upper endoscopy week of November 20) Patient Instructions/Handouts: Esophageal Dilation (DC) Activity/Diet/Wound Care/Special Instructions: Liquid diet today. Discharge Disposition: HOME SELF-CARE
[2018-10-27 07:52] VITALS: BP 107/67; PULSE 58; RESP 16
== END 2018-10-27 08:08 | disposition home or self-care (01) ==
LOC: ORWHC2ENDO 06:05
PROVIDERS: ATTEND Surgery Plastic and Reconstructive Surgery
DX: K95.89 Other complications of other bariatric procedure (principal); K21.9 Gastro-esophageal reflux disease without esophagitis; K63.89 Other specified diseases of intestine; I49.3 Ventricular premature depolarization; R41.3 Other amnesia; E07.9 Disorder of thyroid, unspecified; E11.40 Type 2 diabetes mellitus with diabetic neuropathy, unspecified; F32.9 Major depressive disorder, single episode, unspecified; M19.90 Unspecified osteoarthritis, unspecified site; G47.33 Obstructive sleep apnea (adult) (pediatric); Z88.1 Allergy status to other antibiotic agents; Z88.2 Allergy status to sulfonamides; Z88.5 Allergy status to narcotic agent; Z79.890 Hormone replacement therapy; Z79.899 Other long term (current) drug therapy; Z87.891 Personal history of nicotine dependence; Z87.442 Personal history of urinary calculi; Z98.84 Bariatric surgery status; Z98.890 Other specified postprocedural states; Z90.49 Acquired absence of other specified parts of digestive tract; Z82.49 Family history of ischemic heart disease and other diseases of the circulatory system; Z83.3 Family history of diabetes mellitus; Z80.3 Family history of malignant neoplasm of breast; Z80.8 Family history of malignant neoplasm of other organs or systems; Z83.49 Family history of other endocrine, nutritional and metabolic diseases; Z80.1 Family history of malignant neoplasm of trachea, bronchus and lung
CPT/HCPCS: 81025; 43245; J2001; J2704

== ENCOUNTER → 2018-11-22 | Outpatient (CLI) | payer BC, MEDICARE ==
--- NOTE | 2018-11-22 14:46 | P.PN ---
Subjective Progress Note Date: 11/22/18 DATE OF SERVICE: 11/22/2018 CHIEF COMPLAINT: Status post gastric bypass HISTORY OF PRESENT ILLNESS: Naz Christine is a 43-year-old female who is status post gastric bypass, 07/10/2018. She is 4 months out. She reports dysphagia has improved. She is tolerating protein shakes. No reports of abdomi nal pain. At height of 5 feet 4 inches, his ideal body weight is 144 pounds. Her highest personal weight was 296 pounds. Her body mass index was 50.9. She comes in 194 pounds from 213 pounds, 1 month ago. She has lost 19 pounds in 1 month. Lifetime weight loss of 102 pounds. Her percent excess weight loss is 67 %. Her body mass index is 33.3 She is 50 pounds overweight. PHYSICAL EXAM: VITAL SIGNS: Height 5 foot 4 inches, weight 194 pounds. BMI 33.3 Vital Signs Temp 98.4 F 11/22/18 14:52 Pulse 75 11/22/18 14:52 Resp BP 119/69 11/22/18 14:52 Pulse Ox GENERAL: Well-developed in no acute distress. HEENT: No scleral icterus. Extraocular movements grossly intact. Hears conversational speech. No nasal drainage. NECK: Supple without lymphadenopathy. CHEST: Nonlabored respirations with equal bilateral excursions. CARDIOVASCULAR: Regular rate and regular rhythm. Distal 2+ pulses. ABDOMEN: Soft, nontender. Nondistended. MUSCULOSKELETAL: No clubbing, cyanosis. NEURO: No focal or lateralizing signs. Cranial nerves 2 through 12 grossly within normal limits. PSYCH: Appropriate affect. Alert and oriented to person, place and time. SKIN: Good skin turgor. Well perfused. EGD FINDINGS: Stricture of approximately 9 mm encountered. Laboratory Last Values WBC 7.0 k/uL (3.8-10.6) 10/11/18 14:40 RBC 4.52 m/uL (3.80-5.40) 10/11/18 14:40 Hgb 12.6 gm/dL (11.4-16.0) 10/11/18 14:40 Hct 39.3 % (34.0-46.0) 10/11/18 14:40 MCV 86.8 fL (80.0-100.0) 10/11/18 14:40 MCH 27.8 pg (25.0-35.0) 10/11/18 14:40 MCHC 32.0 g/dL (31.0-37.0) 10/11/18 14:40 RDW 15.8 % (11.5-15.5) H 10/11/18 14:40 Plt Count 188 k/uL (150-450) 10/11/18 14:40 PT 10.8 sec (9.0-12.0) 10/11/18 14:40 INR 1.0 (<1.2) 10/11/18 14:40 APTT 27.0 sec (22.0-30.0) 10/11/18 14:40 Sodium 141 mmol/L (135-145) 10/11/18 14:40 Potassium 3.7 mmol/L (3.5-5.5) 10/11/18 14:40 Chloride 105 mmol/L (96-109) 10/11/18 14:40 Carbon Dioxide 28.4 mmol/L (21.6-31.8) 10/11/18 14:40 Anion Gap 7.60 mmol/L (4.00-12.00) 10/11/18 14:40 BUN 9.0 mg/dL (9.0-27.0) 10/11/18 14:40 Creatinine 0.4 mg/dL (0.6-1.5) L 10/11/18 14:40 Est GFR (CKD-EPI)AfAm 146.8 (60.0-200.0) 10/11/18 14:40 Est GFR (CKD-EPI)NonAf 126.7 (60.0-200.0) 10/11/18 14:40 BUN/Creatinine Ratio 22.50 Ratio (12.00-20.00) H 10/11/18 14:40 Glucose 92 mg/dL (70-110) 10/11/18 14:[address] Glu mg/dL 111 10/11/18 14:40 Hemoglobin A1c 5.5 % (4.0-6.0) 10/11/18 14:40 Calcium 8.8 mg/dL (8.7-10.3) 10/11/18 14:40 Phosphorus 3.1 mg/dL (2.4-5.1) 10/11/18 14:40 Magnesium 1.8 mg/dL (1.5-2.4) 10/11/18 14:40 Iron 57 ug/dL (50-170) 10/11/18 14:40 TIBC 266 ug/dL (228-460) 10/11/18 14:40 Iron Saturation 21.43 (12.00-45.00) 10/11/18 14:40 Ferritin 480.2 ng/mL (10.0-291.0) H 10/11/18 14:40 Total Bilirubin 0.4 mg/dL (0.3-1.2) 10/11/18 14:40 AST 53 U/L (13-35) H 10/11/18 14:40 ALT 51 U/L (8-44) H 10/11/18 14:40 Alkaline Phosphatase 74 U/L (41-126) 10/11/18 14:40 Total Protein 5.5 g/dL (6.2-8.2) L 10/11/18 14:40 Albumin 3.70 g/dL (3.80-4.90) L 10/11/18 14:40 Globulin 1.8 g/dL (1.6-3.3) 10/11/18 14:40 Albumin/Globulin Ratio 2.06 g/dL (1.60-3.17) 10/11/18 14:40 Prealbumin 8.0 mg/dL (18.0-42.0) L 10/11/18 14:40 Triglycerides 95.0 mg/dL (0.0-149.0) 10/11/18 14:40 Cholesterol 132 mg/dL (0-200) 10/11/18 14:40 LDL Cholesterol, Calc 62.0 mg/dL (0.0-131.0) 10/11/18 14:40 VLDL Cholesterol, Calc 19.00 mg/dL (5.00-40.00) 10/11/18 14:40 HDL Cholesterol 51.0 mg/dL (40.0-60.0) 10/11/18 14:40 Cholesterol/HDL Ratio 2.59 10/11/18 14:40 Vitamin A 18 ug/dL (38-106) L 10/11/18 14:40 Vitamin B1 44 ug/L (38-122) 10/11/18 14:40 Vitamin B12 481.0 pg/mL (200.0-944.0) 10/11/18 14:40 Vitamin D 25-Hydroxy 44.3 ng/mL (30.0-100.0) 10/11/18 14:40 Folate 9.5 ng/mL 10/11/18 14:40 TSH 9.390 uIU/mL (0.350-5.500) H 10/11/18 14:40 PTH Intact 86.8 pg/mL (14.0-72.0) H 10/11/18 14:40 Copper 792 ug/L (810-1990) L 10/11/18 14:40 Selenium 53 mcg/L (63-160) L 10/11/18 14:40 Zinc 62 ug/dL (60-130) 10/11/18 14:40 Total protein is low Albumin is low Prealbumin is low Vitamin A is low Copper is low Selenium is low Copper is low TSH is high PTH is high ASSESSMENT: 1. Morbid obesity due to excess calories. 2. Body mass index prior 50.9 down to 42.9 3. Osteoarthritis of the knees. 4. Plantar fasciitis 5. Osteoarthritis of the lower back. 6. Gastroesophageal reflux disease 7. Irritable bowel syndrome 8. Obstructive sleep apnea 9. Kidney stones 10. Diabetes type 2 11. Hypothyroidism 12. Attention deficit disorder 13. Depression 14. Bilateral lower extremity neuropathy 15. Memory disorder 16. Hypertensive heart disease 17. Vitamin D deficiency 18. Hypokalemia, resolved 19. Status post gastric bypass 20. Dietary surveillance and counseling 21. Left venous thrombosis of the arm 22. Gastrojejunal ulcer 23. Dysphagia PLAN: 1. Will need EGD in the future to treat her stricture.
[2018-11-22 14:55] VITALS: BP 119/69; PULSE 75; TEMP 98.4; BMI 33.3
== END | disposition home or self-care (01) ==
LOC: BARWHC3 13:38
PROVIDERS: ATTEND Surgery Plastic and Reconstructive Surgery
DX: R13.10 Dysphagia, unspecified (principal)
CPT/HCPCS: 99211

== ENCOUNTER 2018-12-08 08:11 | Day surgery (SDC) | payer BC, MEDICARE ==
[2018-12-07 09:02] VITALS: BMI 33.6
--- NOTE | 2018-12-08 08:17 | P.GSHP ---
History of Present Illness H&P Date: 12/08/18 CHIEF COMPLAINT: GERD HISTORY OF PRESENT ILLNESS: The patient is a 43-year-old female who presents reports gastroesophageal reflux disease. Upper endoscopy was offered for further evaluation and management. PAST MEDICAL HISTORY: Please see list. PAST SURGICAL HISTORY: Please see list. MEDICATIONS: Please see list. ALLERGIES: Please see list. SOCIAL HISTORY: No illicit drug use FAMILY HISTORY: No reports of Crohn disease or ulcerative colitis. REVIEW OF ORGAN SYSTEMS: CONSTITUTIONAL: No reports of fevers or chills. GI: Denies any blood in stools or constipation. PHYSICAL EXAM: VITAL SIGNS: Stable GENERAL: Well-developed and pleasant in no acute distress. HEENT: No scleral icterus. Extraocular movements grossly intact. Moist buccal mucosa. NECK: Supple without lymphadenopathy. CHEST: Unlabored respirations. Equal bilateral excursions. CARDIOVASCULAR: Regular rate and rhythm. Distal 2+ pulses. ABDOMEN: Soft, nondistended. MUSCULOSKELETAL: No clubbing, cyanosis, or edema. ASSESSMENT: 1. Gastroesophageal reflux disease PLAN: 1. Recommend proceeding with an upper endoscopy Past Medical History Past Medical History: Diabetes Mellitus, Memory Impairment, Neurologic Disorder, Osteoarthritis (OA), Respiratory Disorder, Sleep Apnea/CPAP/BIPAP, Thyroid Disorder Additional Past Medical History / Comment(s): Takes Namenda, Ritalin to help focus D/T memory loss. Hx arrythmia & heart racing, kidney/uric acid stones, nichole leg neuropathy, joint pain in nichole knees, DIET CONTROL DIABETES since Gastric Bypass. Recent bronchitis, on po AB Rx for 1 wk or so. Had recent EMG - pinched nerve in neck. Having prob eating, dysphagia. History of Any Multi-Drug Resistant Organisms: None Reported Past Surgical History: Bariatric Surgery, Bladder Surgery, Section, Cholecystectomy, Uterine Ablation Additional Past Surgical History / Comment(s): C-S x5, bladder surgery with mesh implant, renal stents, Mino-en-y sx 07/10/18, EGD WITH DILATATION x2 Past Anesthesia/Blood Transfusion Reactions: No Reported Reaction Additional Past Anesthesia/Blood Transfusion Reaction / Comment(s): recieved blood transfusion 2 units with no reactions Smoking Status: Former smoker - Past Family History Mother Family Medical History: Cancer, Coronary Artery Disease (CAD), Diabetes Mellitus, Deep Vein Thrombosis (DVT), Thyroid Disorder Additional Family Medical History / Comment(s): Type 2 Dm, Piagets Disease, Breast cancer survivor Sister(s) Family Medical History: Diabetes Mellitus, Thyroid Disorder Additional Family Medical History / Comment(s): sister #1: Type 2 DM hypothyroidism. Sister 2: Thyroid cancer (and hyperthyroidism) Father Family Medical History: Cancer, Coronary Artery Disease (CAD), Deep Vein Thrombosis (DVT), Pulmonary Embolus Additional Family Medical History / Comment(s): lung cancer survivor (mesothelioma from asbestos lining ships in [place]). Hx [place] blood clot. Medications and Allergies Home Medications Medication Instructions Recorded Confirmed Type Thyroid,Pork [[place] Thyroid] 180 mg PO DAILY 03/17/17 12/07/18 History Omeprazole [PriLOSEC] 40 mg PO AC-BRKFST 12/12/17 12/07/18 History Citalopram Hydrobromide [CeleXA] 20 mg PO DAILY 08/17/18 12/07/18 History ARIPiprazole [Abilify] 2 mg PO DAILY 09/27/18 12/07/18 History Bariactive (Multivitamin) 1 tab PO BID 09/27/18 12/07/18 History Biotin (Unknown Dose) 1 tab PO DAILY 09/27/18 12/07/18 History Calcium, Vitamin D3, Magnesium 2 tab PO DAILY 09/27/18 12/07/18 History Cbd Oil 5 mg PO DAILY 09/27/18 12/07/18 History Donepezil HCl [Aricept] 10 mg PO BID 09/27/18 12/07/18 History Iron With Vitamin C 54 mg PO BID 09/27/18 12/07/18 History Memantine [Namenda] 10 mg PO BID 09/27/18 12/07/18 History Vitamin B12 Nasal [place] 1 spray INHALATION Q7D 09/27/18 12/07/18 History Amoxicillin 15 ml PO Q12HR 12/07/18 12/07/18 History Daytrana Patch 30 mg TRANSDERM DAILY 12/07/18 History Allergies Allergy/AdvReac Type Severity Reaction Status Date / Time codeine Allergy Rash/Hives Verified 12/07/18 08:42 levofloxacin [From Levaquin] Allergy Swelling Verified 12/07/18 08:42 morphine Allergy Rash/Hives Verified 12/07/18 08:42 Sulfa (Sulfonamide Allergy Anaphylaxis Verified 12/07/18 08:42 Antibiotics) sulfamethoxazole Allergy Rash/Hives Verified 12/07/18 08:42 [From Bactrim] trimethoprim [From Bactrim] Allergy Rash/Hives Verified 12/07/18 08:42
[2018-12-08 08:32] VITALS: RESP 16; TEMP 97.8
[2018-12-08] MEDS: LACTATED RINGERS 1,000 ML IV SCH ×2 (08:36→09:05)
[2018-12-08 08:41] LABS: Glucose,Whole Blood 76 mg/dL (75-99)
[2018-12-08] MEDS ORDERED: LIDOCAINE 1% INJ 10MG/ML (20 ML MDV) ONE (09:09)
[2018-12-08] MEDS ORDERED: PROPOFOL 10 MG/ML 20 ML VIAL IV ONE (09:09)
--- NOTE | 2018-12-08 09:19 | P.PCN ---
Date of Procedure: 12/08/18 Description of Procedure: PREOPERATIVE DIAGNOSIS: Gastroesophageal reflux disease Dysphagia. 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 SURGEON: Violet Barahona MD ANESTHESIA: MAC. INDICATIONS: The patient is a 43-year-old female who presents with a history of gastrojejunal stricture. Benefits and risks of the procedure were described. Informed consent was obtained. DESCRIPTION: The patient was brought into the endoscopy suite and laid in the left lateral decubitus position. After a timeout was confirmed, the procedure was initiated. An Olympus gastroscope was passed along the posterior oropharynx down to the distal esophagus where the squamocolumnar junction was unremarkable. The gastric pouch was entered. A gastrojejunal stricture of 12 mm was found as the adult gastroscope was 9.5 mm in size. A [employer] balloon dilator was placed through the scope. Final insufflation up to 20 mm was performed with a total of 2 minutes. The scope was advanced up to 60 cm from the incisors into the Mino limb. The mucosa of the gastrojejunal anastomosis was intact with bleeding. No chronic gastrojejunal marginal ulcer was encountered. No full-thickness injury was encountered. The GI tract was desufflated. The patient tolerated the procedure well. FINDINGS: Stricture of approximately 12 mm encountered. Successful balloon dilatation to 20 mm. Gastrojejunal stricture without obstruction without ulcer RECOMMENDATIONS: Repeat upper endoscopy as needed
[2018-12-08 09:26] VITALS: BP 97/65; PULSE 80
== END 2018-12-08 10:40 | disposition home or self-care (01) ==
LOC: ORWHC2ENDO 08:11
PROVIDERS: ATTEND Surgery Plastic and Reconstructive Surgery
DX: K95.89 Other complications of other bariatric procedure (principal); K31.89 Other diseases of stomach and duodenum; K21.9 Gastro-esophageal reflux disease without esophagitis; J45.909 Unspecified asthma, uncomplicated; G47.33 Obstructive sleep apnea (adult) (pediatric); R41.3 Other amnesia; E07.9 Disorder of thyroid, unspecified; E11.40 Type 2 diabetes mellitus with diabetic neuropathy, unspecified; M19.90 Unspecified osteoarthritis, unspecified site; Z99.89 Dependence on other enabling machines and devices; Z87.891 Personal history of nicotine dependence; Z79.890 Hormone replacement therapy; Z79.899 Other long term (current) drug therapy; Z88.2 Allergy status to sulfonamides; Z88.1 Allergy status to other antibiotic agents; Z88.5 Allergy status to narcotic agent; Z88.8 Allergy status to other drugs, medicaments and biological substances; Z90.49 Acquired absence of other specified parts of digestive tract; Z87.442 Personal history of urinary calculi; Z98.890 Other specified postprocedural states; Z82.49 Family history of ischemic heart disease and other diseases of the circulatory system; Z80.3 Family history of malignant neoplasm of breast; Z83.3 Family history of diabetes mellitus; Z80.1 Family history of malignant neoplasm of trachea, bronchus and lung; Z80.8 Family history of malignant neoplasm of other organs or systems; Z98.84 Bariatric surgery status
CPT/HCPCS: 81025; 43245; J2001; J2704; C1726

== ENCOUNTER → 2019-03-07 | Outpatient (CLI) | payer BC, MEDICARE ==
[2019-03-07 16:41] VITALS: BP 129/85; PULSE 62; RESP 16; TEMP 98.2; BMI 28.1
--- NOTE | 2019-03-07 17:02 | P.PN ---
Subjective Progress Note Date: 03/07/19 DATE OF SERVICE: 03/07/2019 CHIEF COMPLAINT: Status post gastric bypass HISTORY OF PRESENT ILLNESS: Naz Christine is a 43-year-old female who is status post gastric bypass, 07/10/2018. She is 7 months out. She has lost over 120 pounds. Since her last visit she went from 194 pounds to 164 pounds. She comes in with new problems. She report dizziness and falling down. Her blood pressure is 90s over 50s. She struggles with drinking fluids. She has developed bad habits of avoiding water. She reports pain along her right side. She reports nausea from eating more than 0.5 cup at a time. She reports nausea. She cannot tolerate ground beef. She cannot tolerate chicken or pork. She has been struggli ng with food for 1 to 2 weeks. She is avoiding foods with salt. She has intermittent abdominal pain. At height of 5 feet 4 inches, his ideal body weight is 144 pounds. Her highest personal weight was 296 pounds. Her body mass index was 50.9. She comes in 164 pounds from 194 pounds, 3 months ago. She has lost 30 pounds in 3 months. Lifetime weight loss of 132 pounds. Her lifetime percent excess weight loss is 87 %. Her body mass index is 28.2. She is 20 pounds overweight. PHYSICAL EXAM: VITAL SIGNS: Height 5 foot 4 inches, weight 164 pounds. BMI 28.2 Vital Signs Temp 98.2 F 03/07/19 16:39 Pulse 62 03/07/19 16:39 Resp 16 03/07/19 16:39 BP 129/85 03/07/19 16:39 Pulse Ox GENERAL: Well-developed in no acute distress. HEENT: No scleral icterus. Extraocular movements grossly intact. Hears conversational speech. No nasal drainage. NECK: Supple without lymphadenopathy. CHEST: Nonlabored respirations with equal bilateral excursions. CARDIOVASCULAR: Regular rate and regular rhythm. Distal 2+ pulses. ABDOMEN: Pannus over 9 pounds. Hangs over pubis 7 cm. Has hyperemia of panniculitis. Soft, nondistended. MUSCULOSKELETAL: No clubbing, cyanosis. NEURO: No focal or lateralizing signs. Cranial nerves 2 through 12 grossly within normal limits. PSYCH: Appropriate affect. Alert and oriented to person, place and time. SKIN: Good skin turgor. Well perfused. ASSESSMENT: 1. Morbid obesity due to excess calories. 2. Body mass index prior 50.9 down to 28.2 3. Osteoarthritis of the knees. 4. Plantar fasciitis 5. Osteoarthritis of the lower back. 6. Gastroesophageal reflux disease 7. Irritable bowel syndrome 8. Obstructive sleep apnea 9. Kidney stones 10. Diabetes type 2, resolved 11. Hypothyroidism 12. Attention deficit disorder 13. Depression 14. Bilateral lower extremity neuropathy 15. Memory disorder 16. Hypertensive heart disease 17. Vitamin D deficiency 18. Hypokalemia, resolved 19. Status post gastric bypass 20. Dietary surveillance and counseling 21. Left venous thrombosis of the arm, resolved 22. Gastrojejunal ulcer 23. Dysphagia 24. Inadequate protein intake 25. Vitamin A deficiency 26. Copper deficiency 27. Selenium deficiency 28 Secondary hyperparathyroidism 29. Hypotension PLAN: 1. She reports intermittent food getting stuck and recommend upper endoscopy with dilation 2. May need diagnostic laparoscopy for peritoneal adhesions and closure of internal hernia. 3. Recommend salt foods for low blood pressure. 4. Recommend bariatric labs. Objective - Vital Signs Vital signs: Vital Signs Temp 98.2 F 03/07/19 16:39 Pulse 62 03/07/19 16:39 Resp 16 03/07/19 16:39 BP 129/85 03/07/19 16:39 Pulse Ox Intake & Output 03/06/19 03/07/19 03/07/19 18:59 06:59 18:59 Weight 74.389 kg
== END | disposition home or self-care (01) ==
LOC: BARWHC3 15:12
PROVIDERS: ATTEND Surgery Plastic and Reconstructive Surgery
DX: E66.01 Morbid (severe) obesity due to excess calories (principal); M17.0 Bilateral primary osteoarthritis of knee; M72.2 Plantar fascial fibromatosis; K21.9 Gastro-esophageal reflux disease without esophagitis; K58.9 Irritable bowel syndrome, unspecified; G47.33 Obstructive sleep apnea (adult) (pediatric); N20.0 Calculus of kidney; E03.9 Hypothyroidism, unspecified; F98.8 Other specified behavioral and emotional disorders with onset usually occurring in childhood and adolescence; F32.9 Major depressive disorder, single episode, unspecified; G57.93 Unspecified mononeuropathy of bilateral lower limbs; R41.3 Other amnesia; I11.9 Hypertensive heart disease without heart failure; E55.9 Vitamin D deficiency, unspecified; K28.9 Gastrojejunal ulcer, unspecified as acute or chronic, without hemorrhage or perforation; E63.8 Other specified nutritional deficiencies; E50.9 Vitamin A deficiency, unspecified; E61.0 Copper deficiency; N25.81 Secondary hyperparathyroidism of renal origin; I95.9 Hypotension, unspecified; Z98.84 Bariatric surgery status; Z71.3 Dietary counseling and surveillance; Z68.28 Body mass index [BMI] 28.0-28.9, adult
CPT/HCPCS: 97803; 99211

== ENCOUNTER → 2020-04-16 | Outpatient (CLI) | payer BC, MEDICARE ==
[2020-04-16 14:42] VITALS: BP 113/74; PULSE 67; RESP 18; TEMP 98.2; BMI 25.7
--- NOTE | 2020-04-16 15:13 | P.PN ---
Subjective Progress Note Date: 04/16/20 She comes in with trouble with eating. She has obsessive disorder. She refuses to be stretched. Recommend EGD with dilation. Recommend labs. She is very small. Skin removal surgery. She has severe panniculitis of the belly button. Pants Closer. Has problems with skin removal and looking into panniculectomy. Closure of internal hernia described following successful weight loss from risk of moderate weight loss. Objective - Vital Signs Vital signs: Vital Signs Temp 98.2 F 04/16/20 14:29 Pulse 67 04/16/20 14:29 Resp 18 04/16/20 14:29 BP 113/74 04/16/20 14:29 Pulse Ox Intake & Output 04/15/20 04/16/20 04/16/20 18:59 06:59 18:59 Weight 68.039 kg
[2020-04-16 16:34] LABS: HCT 41.1 % (34.0-46.0); HGB 13.6 gm/dL (11.4-16.0); MCH 29.8 pg (25.0-35.0); MCV 90.2 fL (80.0-100.0); Mean Platelet Volume 8.6; Platelet Count 182 k/uL (150-450); RBC 4.55 m/uL (3.80-5.40); RDW 13.7 % (11.5-15.5); WBC 7.2 k/uL (3.8-10.6)
[2020-04-17 04:57] LABS: % Iron Saturation 31.75 (12.00-45.00); African American GFR (CKD) 127.6 (60.0-200.0); Albumin 4.8 g/dL (3.80-4.90); Albumin/Globulin Ratio 2.67 (1.60-3.17); Anion Gap 10.6 mmol/L (4.00-12.00); BUN/Creat Ratio 18.33 Ratio (12.00-20.00); Calcium 9.4 mg/dL (8.7-10.3); Carbon Dioxide 25.4 mmol/L (21.6-31.8); Chol/HDL Ratio 1.96; Globulin 1.8 g/dL (1.6-3.3); LDL Cholesterol,Calculated 59.4 mg/dL (0.0-131.0); Non-African American GFR(CKD) 110.1 (60.0-200.0); Phosphorus 3.9 mg/dL (2.4-5.1); Potassium 3.9 mmol/L (3.5-5.5); Total Bilirubin 1.1 mg/dL (0.3-1.2); Total Protein 6.6 g/dL (6.2-8.2); VLDL Calculation 12.6 mg/dL (5.00-40.00)
[2020-04-17 05:05] LABS: Ferritin 221.3 ng/mL (10.0-291.0)
[2020-04-17 05:07] LABS: Folate, Serum 8.6 ng/mL
[2020-04-17 05:25] LABS: Prothrombin Time 10.9 sec (9.9-11.9)
[2020-04-18 06:19] LABS: Vitamin A 22 ug/dL (38-106)
[2020-04-18 06:26] LABS: Vit B1(Thiamine) 48 ug/L (38-122)
[2020-04-18 12:18] LABS: Zinc, Serum 57 ug/dL (60-130)
[2020-04-20 17:44] LABS: Selenium 114 mcg/L (63-160)
== END | disposition home or self-care (01) ==
LOC: BARWHC3 14:16
PROVIDERS: ATTEND Surgery Plastic and Reconstructive Surgery
DX: E66.01 Morbid (severe) obesity due to excess calories (principal); D50.8 Other iron deficiency anemias; E44.0 Moderate protein-calorie malnutrition
CPT/HCPCS: 84255; 84134; 84425; 80061; 80053; 82607; 82728; 82525; 82746; 83540; 83550; 83735; 84100; 84443; 84590; 84630; 85027; 85610; 82306; 83970; 83036; 97803; 36415; G0463; 85730; 93005; 99211

== ENCOUNTER 2020-10-22 21:51 | Inpatient (IN) | payer MEDICARE ==
--- NOTE | 2020-10-22 23:19 | ED ---
Recheck HPI - General Chief Complaint: Abdominal Pain Stated Complaint: Abdominal Pain Time Seen by Provider: 10/22/20 21:53 Source: patient, EMS Mode of arrival: EMS Limitations: no limitations - Related Data Home Medications Medication Instructions Recorded Confirmed Omeprazole [PriLOSEC] 20 mg PO AC-BRKFST 12/12/17 10/22/20 Bariactive (Multivitamin) 1 tab PO BID 09/27/18 10/22/20 Biotin (Unknown Dose) 1 tab PO DAILY 09/27/18 10/22/20 Calcium, Vitamin D3, Magnesium 2 tab PO DAILY 09/27/18 10/22/20 Cbd Oil 5 mg PO DAILY PRN 09/27/18 10/22/20 Donepezil HCl [Aricept] 10 mg PO BID 09/27/18 10/22/20 Iron With Vitamin C 54 mg PO BID 09/27/18 10/22/20 Memantine [Namenda] 10 mg PO BID 09/27/18 10/22/20 Vitamin B12 Nasal [place] 1 spray INHALATION Q7D 09/27/18 10/22/20 ARIPiprazole [Abilify Oral 10 mg PO DAILY 10/22/20 10/22/20 Solution] Citalopram Hydrobromide [CeleXA 20 mg PO DAILY 10/22/20 10/22/20 Oral Soln] Daytrana 20mg-9hr Patch 1 patch TRANSDERM DAILY 10/22/20 10/22/20 Estradiol Cream [Estrace Cream 1 gm VAGINAL DAILY 10/22/20 10/22/20 0.01%] Levothyroxine Sodium [Synthroid] 137 mcg PO DAILY 10/22/20 10/22/20 Tetracycline HCl 500 mg PO BID 10/22/20 10/22/20 Zinc 50 mg PO DAILY 10/22/20 10/22/20 Allergies Allergy/AdvReac Type Severity Reaction Status Date / Time codeine Allergy Rash/Hives Verified 10/22/20 22:29 levofloxacin [From Levaquin] Allergy Swelling Verified 10/22/20 22:29 morphine Allergy Rash/Hives Verified 10/22/20 22:29 Sulfa (Sulfonamide Allergy Anaphylaxis Verified 10/22/20 22:29 Antibiotics) sulfamethoxazole Allergy Rash/Hives Verified 10/22/20 22:29 [From Bactrim] trimethoprim [From Bactrim] Allergy Rash/Hives Verified 10/22/20 22:29 Review of Systems ROS Statement: Those systems with pertinent positive or pertinent negative responses have been documented in the HPI. ROS Other: All systems not noted in ROS Statement are negative. Past Medical History Past Medical History: Diabetes Mellitus, Memory Impairment, Neurologic Disorder, Osteoarthritis (OA), Respiratory Disorder, Sleep Apnea/CPAP/BIPAP, Thyroid Disorder Additional Past Medical History / Comment(s): Takes Namenda, Ritalin to help focus D/T memory loss. Hx arrythmia & heart racing, kidney/uric acid stones, nichole leg neuropathy, joint pain in nichole knees, DIET CONTROL DIABETES since Gastric Bypass. Recent bronchitis, on po AB Rx for 1 wk or so. Had recent EMG - pinched nerve in neck. Having prob eating, dysphagia. History of Any Multi-Drug Resistant Organisms: None Reported Past Surgical History: Bariatric Surgery, Bladder Surgery, Section, Cholecystectomy, Uterine Ablation Additional Past Surgical History / Comment(s): C-S x5, bladder surgery with mesh implant, renal stents, Mino-en-y sx 07/10/18, EGD WITH DILATATION x2 Past Anesthesia/Blood Transfusion Reactions: No Reported Reaction Additional Past Anesthesia/Blood Transfusion Reaction / Comment(s): recieved blood transfusion 2 units with no reactions Past Psychological History: Depression, Panic Disorder Smoking Status: Former smoker Past Alcohol Use History: None Reported Past Drug Use History: None Reported - Past Family History Mother Family Medical History: Cancer, Coronary Artery Disease (CAD), Diabetes Mellitus, Deep Vein Thrombosis (DVT), Thyroid Disorder Additional Family Medical History / Comment(s): Type 2 Dm, Piagets Disease, Breast cancer survivor Sister(s) Family Medical History: Diabetes Mellitus, Thyroid Disorder Additional Family Medical History / Comment(s): sister #1: Type 2 DM hypothyroidism. Sister 2: Thyroid cancer (and hyperthyroidism) Father Family Medical History: Cancer, Coronary Artery Disease (CAD), Deep Vein Thrombosis (DVT), Pulmonary Embolus Additional Family Medical History / Comment(s): lung cancer survivor (mesothelioma from asbestos lining ships in [employer] Hx [place] blood clot. General Exam Limitations: no limitations Course Vital Signs 10/22/20 10/22/20 21:57 23:01 Temperature 98.8 F Pulse Rate 78 75 Respiratory 18 18 Rate Blood Pressure 135/86 129/71 O2 Sat by Pulse 97 97 Oximetry Disposition Clinical Impression: Abdominal pain, Abdominal colic Disposition: ADMITTED IP TO THIS HOSP Condition: Good Is patient prescribed a controlled substance at d/c from ED?: No Referrals: Beckie Fontenot MD [Primary Care Provider] - 1-2 days
[2020-10-22] MEDS ORDERED: KETOROLAC 15 MG/ML 1 ML VIAL IVP STA (23:52)
[2020-10-22] MEDS ORDERED: LORazepam 2 MG/ML INJ IV PRN (23:52)
[2020-10-22] MEDS ORDERED: NALOXONE 0.4 MG/ML 1 ML VIAL IV PRN (23:52)
[2020-10-22] MEDS ORDERED: PROCHLORPERAZINE INJ 10 MG/2 ML VIAL IVP STA (23:53)
[2020-10-23] MEDS: HYDROmorphone 1 MG/ML 1 ML SYRINGE IVP PRN ×4 (00:13→21:19)
[2020-10-23 05:21] LABS: Basophils % (A) 1 %; Eosinophils % (A) 1 %; HCT 35.8 % (34.0-46.0); HGB 12.3 gm/dL (11.4-16.0); Lymphocytes % (A) 33 %; MCH 29.8 pg (25.0-35.0); MCHC 34.3 g/dL (31.0-37.0); MCV 87.1 fL (80.0-100.0); Mean Platelet Volume 8.3; Monocytes # (A) 0.3 k/uL (0-1.0); Monocytes % (A) 4 %; Neutrophils # (A) 3.8 k/uL (1.3-7.7); Neutrophils % (A) 61 %; Platelet Count 200 k/uL (150-450); RBC 4.11 m/uL (3.80-5.40); RDW 13.9 % (11.5-15.5); WBC 6.2 k/uL (3.8-10.6)
[2020-10-23 06:33] LABS: ALT 31 U/L (4-34); AST 22 U/L (14-36); African American GFR (CKD) >90 (>60 ml/min/1.73 sqM); Albumin 3.7 g/dL (3.5-5.0); Alkaline Phosphatase 59 U/L (38-126); Anion Gap 7 mmol/L; Blood Urea Nitrogen 8 mg/dL (7-17); Calcium 8.7 mg/dL (8.4-10.2); Carbon Dioxide 26 mmol/L (22-30); Chloride 105 mmol/L (98-107); Glucose 106 mg/dL (74-99); Lipase 56 U/L (23-300); Magnesium 1.8 mg/dL (1.6-2.3); Non-African American GFR(CKD) >90 (>60 ml/min/1.73 sqM); Phosphorus 4.4 mg/dL (2.5-4.5); Sodium 138 mmol/L (137-145); Total Bilirubin 0.6 mg/dL (0.2-1.3); Total Protein 6.1 g/dL (6.3-8.2)
[2020-10-23] MEDS: PANTOPRAZOLE 40 MG/10 ML VIAL IV SCH (09:11)
[2020-10-23] MEDS: ONDANSETRON 4 MG/2 ML VIAL IVP PRN ×2 (09:18→16:52)
--- NOTE | 2020-10-23 11:27 | P.GSHP ---
<Nguyen Kaplan - Last Filed: 10/23/20 11:07> History of Present Illness H&P Date: 10/23/20 CHIEF COMPLAINT: Abdominal pain HISTORY OF PRESENT ILLNESS: This is a 45-year-old female with a known history of a gastrojejunal stricture requiring EGD with dilation 3. Her last procedure was in December 2018. Patient has history of Mino-en-Y gastric bypass, bladder surgery, and cholecystectomy. She also has history of diet controlled diabetes mellitus, UTI with sepsis, sleep apnea, hypothyroidism and kidney s tones. Patient was a transfer from [facility]. Patient presented with abdominal pain in the left upper quadrant. Patient describes the pain as stabbing and that the pain started yesterday. She's been having nausea and dry heaves. Patient continues to complain of difficulty swallowing especially solid foods. She states that she was supposed to see Dr. Guevara in the outpatient setting for an EGD with dilation. However she had been dealing with UTI and sepsis. Patient reports having bowel movements and flatus. She denies any fevers chills or sweats. PAST MEDICAL HISTORY: See list. PAST SURGICAL HISTORY: See list. MEDICATIONS: See list. ALLERGIES: See list. SOCIAL HISTORY: No illicit drug use. REVIEW OF SYSTEMS: CONSTITUTIONAL: Denies fever or chills. HEENT: Denies blurred vision, vision changes, or eye pain. Denies hemoptysis ENDOCRINE: Denies heat or cold intolerance. CARDIOVASCULAR: Denies chest pain or pressure. RESPIRATORY: No shortness of breath. GASTROINTESTINAL: Denies abdominal pain. Denies nausea or vomiting. NEURO: Denies history of seizures. PSYCH: No depression or suicidal ideation HEMATOLOGIC: Denies bleeding disorders. LYMPHATIC: The patient denies any lumps and bumps around the neck. GENITOURINARY: Denies any blood in urine or increased urinary frequency. MUSCULOSKELETAL: Denies myalgias. Denies joint swelling. Denies decreased range of motion beyond patients baseline. SKIN: Denies pruitis. Denies rash. PHYSICAL EXAM: VITAL SIGNS: Reviewed GENERAL: Well-developed in no acute distress. HEENT: No sclera icterus. Extraocular movements grossly intact. Moist buccal mucosa. Head is atraumatic, normocephalic. Hears conversational speech. No nasal drainage. NECK: Supple without lymphadenopathy. CHEST: Non-labored respirations and equal bilateral excursions. CARDIOVASCULAR: Palpable 2+ radial pulses. ABDOMEN: Soft. Nondistended. Left upper quadrant tenderness with palpation MUSCULOSKELETAL: No clubbing or cyanosis. NEUROLOGIC: No focal or lateralizing signs. Cranial nerves II through XII grossly intact. PSYCH: Appropriate affect. Alert and oriented to person, place and time. SKIN: Well perfused. Good skin turgor. LABORATORY DATA: WBC is 6.2 hemoglobin is 12.3 platelets are 200 sodium is 138 potassium is 4.0 creatinine 0.45 glucose 106 magnesium 1.8 LFTs are normal Lipase 56 COVID-19 not detected Urine screen not detected IMAGING: Computed tomography scan of abdomen completed at [place] shows nonspecific nonobstructive intestinal pattern with no free air or ascites. Probable gastric bypass changes of the upper and central abdomen. Symmetric renal enhancement with subcentimeter calculi been no velia hydronephrosis. Previously seen ureteric stents have been removed. Negative urinary bladder. Negative aorta and retroperitoneum. Enlarged liver with fatty infiltration. Previous cholecystectomy. Negative pancreas spleen and adrenal. ASSESSMENT: 1. Left upper quadrant abdominal pain 2. Dysphagia 3. Prior history of EGD with dilation for gastrojejunal stricture 4. History of Mino-en-Y gastric bypass 5. History of Cholecystectomy PLAN: -Patient scheduled for EGD and dilation with Dr. Barahona today, 10/23/2020 -Keep patient nothing by mouth -Continue antiemetics as needed -Continue pain medication as needed Physician Liquid Loader note has been reviewed by physician. Signing provider agrees with the documented findings, assessment, and plan of care. Past Medical History Past Medical History: Diabetes Mellitus, Memory Impairment, Neurologic Disorder, Osteoarthritis (OA), Respiratory Disorder, Sleep Apnea/CPAP/BIPAP, Thyroid Disorder Additional Past Medical History / Comment(s): Takes Namenda, Ritalin to help focus D/T memory loss. Hx arrythmia & heart racing, kidney/uric acid stones, nichole leg neuropathy, joint pain in nichole knees, DIET CONTROL DIABETES since Gastric Bypass. Recent bronchitis, on po AB Rx for 1 wk or so. Had recent EMG - pinched nerve in neck. Having prob eating, dysphagia. History of Any Multi-Drug Resistant Organisms: None Reported Past Surgical History: Bariatric Surgery, Bladder Surgery, Section, Cholecystectomy, Uterine Ablation Additional Past Surgical History / Comment(s): C-S x5, bladder surgery with mesh implant, renal stents, Mino-en-y sx 07/10/18, EGD WITH DILATATION x2 Past Anesthesia/Blood Transfusion Reactions: No Reported Reaction Additional Past Anesthesia/Blood Transfusion Reaction / Comment(s): recieved blood transfusion 2 units with no reactions Past Psychological History: Depression, Panic Disorder Smoking Status: Former smoker Past Alcohol Use History: None Reported Additional Past Alcohol Use History / Comment(s): QUIT SMOKING 2000 Past Drug Use History: None Reported Additional Drug Use History / Comment(s): Quit smoking in 2000 (had smoked about 1/2 pack /day x 8 years) - Past Family History Mother Family Medical History: Cancer, Coronary Artery Disease (CAD), Diabetes Mellitus , Deep Vein Thrombosis (DVT), Thyroid Disorder Additional Family Medical History / Comment(s): Type 2 Dm, [place] Disease, Breast cancer survivor Sister(s) Family Medical History: Diabetes Mellitus, Thyroid Disorder Additional Family Medical History / Comment(s): sister #1: Type 2 DM hypothyroidism. Sister 2: Thyroid cancer (and hyperthyroidism) Father Family Medical History: Cancer, Coronary Artery Disease (CAD), Deep Vein Thrombosis (DVT), Pulmonary Embolus Additional Family Medical History / Comment(s): lung cancer survivor (mesothelioma from asbestos lining ships in [place]). Hx [place] blood clot. Medications and Allergies Home Medications Medication Instructions Recorded Confirmed Type Omeprazole [PriLOSEC] 20 mg PO AC-BRKFST 12/12/17 10/22/20 History Bariactive (Multivitamin) 1 tab PO BID 09/27/18 10/22/20 History Biotin (Unknown Dose) 1 tab PO DAILY 09/27/18 10/22/20 History Calcium, Vitamin D3, Magnesium 2 tab PO DAILY 09/27/18 10/22/20 History Cbd Oil 5 mg PO DAILY PRN 09/27/18 10/22/20 History Donepezil HCl [Aricept] 10 mg PO BID 09/27/18 10/22/20 History Iron With Vitamin C 54 mg PO BID 09/27/18 10/22/20 History Memantine [Namenda] 10 mg PO BID 09/27/18 10/22/20 History Vitamin B12 Nasal [place] 1 spray INHALATION Q7D 09/27/18 10/22/20 History ARIPiprazole [Abilify Oral 10 mg PO DAILY 10/22/20 10/22/20 History Solution] Citalopram Hydrobromide [CeleXA 20 mg PO DAILY 10/22/20 10/22/20 History Oral Soln] Daytrana 20mg-9hr Patch 1 patch TRANSDERM DAILY 10/22/20 10/22/20 History Estradiol Cream [Estrace Cream 1 gm VAGINAL DAILY 10/22/20 10/22/20 History 0.01%] Levothyroxine Sodium [Synthroid] 137 mcg PO DAILY 10/22/20 10/22/20 History Tetracycline HCl 500 mg PO BID 10/22/20 10/22/20 History Zinc 50 mg PO DAILY 10/22/20 10/22/20 History Allergies Allergy/AdvReac Type Severity Reaction Status Date / Time codeine Allergy Rash/Hives Verified 10/22/20 22:29 levofloxacin [From Levaquin] Allergy Swelling Verified 10/22/20 22:29 morphine Allergy Rash/Hives Verified 10/22/20 22:29 Sulfa (Sulfonamide Allergy Anaphylaxis Verified 10/22/20 22:29 Antibiotics) sulfamethoxazole Allergy Rash/Hives Verified 10/22/20 22:29 [From Bactrim] trimethoprim [From Bactrim] Allergy Rash/Hives Verified 10/22/20 22:29 Surgical - Exam Vital Signs Temp Pulse Resp BP Pulse Ox 98.8 F 78 18 135/86 97 10/22/20 21:57 10/22/20 21:57 10/22/20 21:57 10/22/20 21:57 10/22/20 21:57 Results - Labs 10/23/20 05:01 10/23/20 05:01 Abnormal Lab Results - Last 24 Hours (Table) 10/23/20 Range/Units 05:01 Creatinine 0.45 L (0.52-1.04) mg/dL Glucose 106 H (74-99) mg/dL Total Protein 6.1 L (6.3-8.2) g/dL Diabetes panel 10/23/20 Range/Units 05:01 Sodium 138 (137-145) mmol/L Potassium 4.0 (3.5-5.1) mmol/L Chloride 105 (98-107) mmol/L Carbon Dioxide 26 (22-30) mmol/L BUN 8 (7-17) mg/dL Creatinine 0.45 L (0.52-1.04) mg/dL Glucose 106 H (74-99) mg/dL Calcium 8.7 (8.4-10.2) mg/dL AST 22 (14-36) U/L ALT 31 (4-34) U/L Alkaline Phosphatase 59 (38-126) U/L Total Protein 6.1 L (6.3-8.2) g/dL Albumin 3.7 (3.5-5.0) g/dL Calcium panel 10/23/20 Range/Units 05:01 Calcium 8.7 (8.4-10.2) mg/dL Phosphorus 4.4 (2.5-4.5) mg/dL Albumin 3.7 (3.5-5.0) g/dL Pituitary panel 10/23/20 Range/Units 05:01 Sodium 138 (137-145) mmol/L Potassium 4.0 (3.5-5.1) mmol/L Chloride 105 (98-107) mmol/L Carbon Dioxide 26 (22-30) mmol/L BUN 8 (7-17) mg/dL Creatinine 0.45 L (0.52-1.04) mg/dL Glucose 106 H (74-99) mg/dL Calcium 8.7 (8.4-10.2) mg/dL Adrenal panel 10/23/20 Range/Units 05:01 Sodium 138 (137-145) mmol/L Potassium 4.0 (3.5-5.1) mmol/L Chloride 105 (98-107) mmol/L Carbon Dioxide 26 (22-30) mmol/L BUN 8 (7-17) mg/dL Creatinine 0.45 L (0.52-1.04) mg/dL Glucose 106 H (74-99) mg/dL Calcium 8.7 (8.4-10.2) mg/dL Total Bilirubin 0.6 (0.2-1.3) mg/dL AST 22 (14-36) U/L ALT 31 (4-34) U/L Alkaline Phosphatase 59 (38-126) U/L Total Protein 6.1 L (6.3-8.2) g/dL Albumin 3.7 (3.5-5.0) g/dL <Violet Barahona N - Last Filed: 10/23/20 12:24> History of Present Illness As above. Please see additional documentation below. CHIEF COMPLAINT: Intractable nausea and vomiting with abdominal pain and history of gastric bypass HISTORY OF PRESENT ILLNESS: Naz Christine is a 45-year-old female who is status post gastric bypass, 07/10/2018. She is 2 years out. She presents as a transfer from outside facility due to sudden onset of intractable nausea and v omiting including moderate severe epigastric and left upper quadrant abdominal pain that started yesterday. She has personal history of gastric ulcers. Additionally see has history of gastric bypass at risk of internal hernias. Since admission, abdominal pain mildly improved however she still reports intolerance to textured foods with dysphagia. Patient is admitted for intractable abdominal pain including dysphagia and history of gastric bypass patient for intermittent bowel obstruction. PAST MEDICAL HISTORY: 1. Morbid obesity due to excess calories 2. Body mass index prior 50.9. 3. Osteoarthritis of the knees. 4. Plantar fasciitis 5. Osteoarthritis of the lower back. 6. Gastroesophageal reflux disease 7. Irritable bowel syndrome 8. Obstructive sleep apnea 9. Kidney stones 10. Diabetes type 2 11. Hypothyroidism 12. Attention deficit disorder 13. Depression 14. Bilateral lower extremity neuropathy 15. Memory disorder 16. Hypertensive heart disease. PAST SURGICAL HISTORY: 1. section 2. Cholecystectomy 3. Renal stents 4. Bladder surgery 5. Gastric bypass HOME MEDICATIONS: Home Medications Medication Instructions Recorded Confirmed Omeprazole [PriLOSEC] 20 mg PO AC-BRKFST 12/12/17 10/22/20 Bariactive (Multivitamin) 1 tab PO BID 09/27/18 10/22/20 Biotin (Unknown Dose) 1 tab PO DAILY 09/27/18 10/22/20 Calcium, Vitamin D3, Magnesium 2 tab PO DAILY 09/27/18 10/22/20 Cbd Oil 5 mg PO DAILY PRN 09/27/18 10/22/20 Donepezil HCl [Aricept] 10 mg PO BID 09/27/18 10/22/20 Iron With Vitamin C 54 mg PO BID 09/27/18 10/22/20 Memantine [Namenda] 10 mg PO BID 09/27/18 10/22/20 Vitamin B12 Nasal [place] 1 spray INHALATION Q7D 09/27/18 10/22/20 ARIPiprazole [Abilify Oral 10 mg PO DAILY 10/22/20 10/22/20 Solution] Citalopram Hydrobromide [CeleXA 20 mg PO DAILY 10/22/20 10/22/20 Oral Soln] Daytrana 20mg-9hr Patch 1 patch TRANSDERM DAILY 10/22/20 10/22/20 Estradiol Cream [Estrace Cream 1 gm VAGINAL DAILY 10/22/20 10/22/20 0.01%] Levothyroxine Sodium [Synthroid] 137 mcg PO DAILY 10/22/20 10/22/20 Tetracycline HCl 500 mg PO BID 10/22/20 10/22/20 Zinc 50 mg PO DAILY 10/22/20 10/22/20 ALLERGIES: Allergies Allergy/AdvReac Type Severity Reaction Status Date / Time codeine Allergy Rash/Hives Verified 10/22/20 22:29 levofloxacin [From Levaquin] Allergy Swelling Verified 10/22/20 22:29 morphine Allergy Rash/Hives Verified 10/22/20 22:29 Sulfa (Sulfonamide Allergy Anaphylaxis Verified 10/22/20 22:29 Antibiotics) sulfamethoxazole Allergy Rash/Hives Verified 10/22/20 22:29 [From Bactrim] trimethoprim [From Bactrim] Allergy Rash/Hives Verified 10/22/20 22:29 SOCIAL HISTORY: No active tobacco use. Former tobacco use. FAMILY HISTORY: No family history of ulcerative colitis disease or Crohn's disease. Family history of morbid obesity. No reports of stomach or esophageal cancer. Family history of diabetes type 2. She denies stomach or esophageal cancer. No personal or family history of inflammatory bowel disease. She has lupus in her niece. Thyroid cancer. REVIEW OF ORGAN SYSTEMS: CONSTITUTIONAL: At height of 5 feet 4 inches, ideal body weight is 144 pounds. Her highest personal weight was 296 pounds. Her body mass index was 50.9. HEENT: Denies any active troubles with vision or hearing. No troubles with swal lowing. ENDOCRINE: Has diabetes. Has hypothyroidism. CARDIOVASCULAR: No reports of palpitations or heart attacks or chest pain. RESPIRATORY: Has daytime somnolence. No asthma. Has sleep apnea improved GI: Denies any bright red blood per rectum. No diarrhea or constipation. MUSCULOSKELETAL: Has lower back pain and joint pain. Has osteoarthritis of the knees. NEURO: No headaches. No seizure disorders. PSYCH: Has depression. No suicidal ideation. RHEUMATOLOGIC: No lupus. No rheumatoid arthritis. HEMATOLOGIC: Denies any abnormal bleeding or bruising. No personal history of DVTs. SKIN: No rash. No skin cancer. PHYSICAL EXAM: VITAL SIGNS: Height 5 foot 4 inches, weight 150 pounds. BMI 25.7 GENERAL: Well-developed in no acute distress. HEENT: No scleral icterus. Extraocular movements grossly intact. Hears conversational speech. No nasal drainage. NECK: Supple without lymphadenopathy. CHEST: Nonlabored respirations with equal bilateral excursions. CARDIOVASCULAR: Regular rate and regular rhythm. Distal 2+ pulses. ABDOMEN: Tender epigastric and left upper quadrant. MUSCULOSKELETAL: No clubbing, cyanosis. NEURO: No focal or lateralizing signs. Cranial nerves 2 through 12 grossly within normal limits. PSYCH: Appropriate affect. Alert and oriented to person, place and time. SKIN: Good skin turgor. Well perfused. ASSESSMENT: 1. Intractable nausea and vomiting with dysphagia and history of gastrojejunal ulcer 2. Peritoneal adhesions with left upper quadrant abdominal pain and intermittent bowel obstruction 3. Osteoarthritis of the knees. 4. Plantar fasciitis 5. Osteoarthritis of the lower back. 6. Gastroesophageal reflux disease 7. Irritable bowel syndrome 8. Obstructive sleep apnea 9. Kidney stones 10. Diabetes type 2 11. Hypothyroidism 12. Attention deficit disorder 13. Depression 14. Bilateral lower extremity neuropathy 15. Memory disorder 16. Hypertensive heart disease 17. Vitamin D deficiency 18. Hypokalemia, resolved 19. Status post gastric bypass 20. Dietary surveillance and counseling 21. Left venous thrombosis of the arm 22. Morbid obesity due to excess calories. 23. Body mass index prior 50.9 down to 25.7 PLAN: 1. Recommend upper endoscopy for risk of gastric ulcer including perforation. 2. Patient's elevated risk for pre-existing history of perforation of gastric ulcer. 3. Inpatient admission advised for dysphagia, intractable nausea and vomiting abdominal pain Surgical - Exam Vital Signs Temp Pulse Resp BP Pulse Ox 98.8 F 78 18 135/86 97 10/22/20 21:57 10/22/20 21:57 10/22/20 21:57 10/22/20 21:57 10/22/20 21:57 Results - Labs 10/23/20 05:01 10/23/20 05:01 Abnormal Lab Results - Last 24 Hours (Table) 10/23/20 Range/Units 05:01 Creatinine 0.45 L (0.52-1.04) mg/dL Glucose 106 H (74-99) mg/dL Total Protein 6.1 L (6.3-8.2) g/dL Diabetes panel 10/23/20 Range/Units 05:01 Sodium 138 (137-145) mmol/L Potassium 4.0 (3.5-5.1) mmol/L Chloride 105 (98-107) mmol/L Carbon Dioxide 26 (22-30) mmol/L BUN 8 (7-17) mg/dL Creatinine 0.45 L (0.52-1.04) mg/dL Glucose 106 H (74-99) mg/dL Calcium 8.7 (8.4-10.2) mg/dL AST 22 (14-36) U/L ALT 31 (4-34) U/L Alkaline Phosphatase 59 (38-126) U/L Total Protein 6.1 L (6.3-8.2) g/dL Albumin 3.7 (3.5-5.0) g/dL Calcium panel 10/23/20 Range/Units 05:01 Calcium 8.7 (8.4-10.2) mg/dL Phosphorus 4.4 (2.5-4.5) mg/dL Albumin 3.7 (3.5-5.0) g/dL Pituitary panel 10/23/20 Range/Units 05:01 Sodium 138 (137-145) mmol/L Potassium 4.0 (3.5-5.1) mmol/L Chloride 105 (98-107) mmol/L Carbon Dioxide 26 (22-30) mmol/L BUN 8 (7-17) mg/dL Creatinine 0.45 L (0.52-1.04) mg/dL Glucose 106 H (74-99) mg/dL Calcium 8.7 (8.4-10.2) mg/dL Adrenal panel 10/23/20 Range/Units 05:01 Sodium 138 (137-145) mmol/L Potassium 4.0 (3.5-5.1) mmol/L Chloride 105 (98-107) mmol/L Carbon Dioxide 26 (22-30) mmol/L BUN 8 (7-17) mg/dL Creatinine 0.45 L (0.52-1.04) mg/dL Glucose 106 H (74-99) mg/dL Calcium 8.7 (8.4-10.2) mg/dL Total Bilirubin 0.6 (0.2-1.3) mg/dL AST 22 (14-36) U/L ALT 31 (4-34) U/L Alkaline Phosphatase 59 (38-126) U/L Total Protein 6.1 L (6.3-8.2) g/dL Albumin 3.7 (3.5-5.0) g/dL
[2020-10-23] MEDS ORDERED: PROPOFOL 10 MG/ML 20 ML VIAL IV ONE (13:32)
[2020-10-23] MEDS ORDERED: LIDOCAINE 1% INJ 10MG/ML (20 ML MDV) ONE (13:32)
[2020-10-23] MEDS ORDERED: SODIUM CHLORIDE 0.9% 500 ML 500 ML IV ONE (13:46)
--- NOTE | 2020-10-23 14:11 | P.PCN ---
Date of Procedure: 10/23/20 Description of Procedure: PREOPERATIVE DIAGNOSES: 1. Dysphagia with intractable nausea and vomiting 2. History of gastrojejunal ulcers 3. History of gastric bypass 4. Epigastric including left upper quadrant abdominal pain POSTOPERATIVE DIAGNOSES: 1. Dysphagia with intractable nausea and vomiting 2. History of gastrojejunal ulcers 3. History of gastric bypass 4. Epigastric including left upper quadrant abdominal pain PROCEDURE PERFORMED: Esophagogastrojejunoscopy. SURGEON: Violet Barahona MD ANESTHESIA: MAC. INDICATIONS: The patient is a 45-year-old female with prior history of Mino-en-Y gastric bypass. She presented with acute onset intractable nausea and vomiting including epigastric and left upper quadrant abdominal pain. She has personal history of gastrojejunal ulcers and concern for ulcers and stricture with history of Mino-en-Y gastric bypass. Upper endoscopy was offered for further evaluation and management. DESCRIPTION: Patient was brought to the endoscopy suite and laid in the left lateral decubitus position. After adequate IV sedation, a bite block was placed. An Olympus gastroscope was passed along the posterior oropharynx down to the distal esophagus where the squamocolumnar junction was found at approximately 40 cm from the incisors. The anastomosis was found at 43 cm. The scope was advanced 60 cm from the incisors. No evidence of foreign body was found. No evidence of active gastrojejunal ulcerations were encountered. No severe anastomotic st ricture was identified.The GI tract was desufflated. The patient tolerated the procedure well. FINDINGS: 1. No acute gastrojejunal ulceration. 2. No foreign body found along the anastomosis. PLAN: 1. Recommend upper endoscopy as needed. 2. Recommend surgical exploration for abdominal for internal hernia with history of gastric bypass
[2020-10-23] MEDS ORDERED: SODIUM CHLORIDE 0.9% 1,000 ML IV ONE (14:12)
[2020-10-23] MEDS: MEMANTINE 10 MG TAB PO SCH (21:18)
[2020-10-24 07:11] LABS: Glucose,Whole Blood 76 mg/dL (75-99)
[2020-10-24] MEDS: PANTOPRAZOLE 40 MG/10 ML VIAL IV SCH (07:35)
[2020-10-24] MEDS: ONDANSETRON 4 MG/2 ML VIAL IVP PRN (07:36)
[2020-10-24] MEDS: HYDROmorphone 1 MG/ML 1 ML SYRINGE IVP PRN (07:36)
[2020-10-24] MEDS: MEMANTINE 10 MG TAB PO SCH ×2 (07:36→21:36)
[2020-10-24] MEDS: ARIPiprazole 10 MG TAB PO SCH (07:36)
[2020-10-24] MEDS: LEVOTHYROXINE 137 MCG TAB PO SCH (07:36)
[2020-10-24] MEDS: CITALOPRAM HYDROBROMIDE 20 MG TAB PO SCH (07:36)
[2020-10-24 11:36] LABS: Glucose,Whole Blood 84 mg/dL (75-99)
--- NOTE | 2020-10-24 12:11 | P.PN ---
Subjective Progress Note Date: 10/24/20 CHIEF COMPLAINT: Intractable nausea and vomiting with abdominal pain and history of gastric bypass HISTORY OF PRESENT ILLNESS: Naz Christine is a 45-year-old female admitted with intractable abdominal pain including nausea and vomiting. She had upper endoscopy demonstrating no acute gastric ulcers. Today, patient reports worsening condition with severe left upper quadrant abdominal pain. She also reports no passage of flatus including increased abdominal distention consistent with bowel obstruction. REVIEW OF ORGAN SYSTEMS: No fevers or chills. Increased abdominal pain. No chest pain. PHYSICAL EXAM: VITAL SIGNS: Reviewed. GENERAL: Well-developed in no acute distress. HEENT: No scleral icterus. Extraocular movements grossly intact. Hears conversational speech. No nasal drainage. CHEST: Nonlabored respirations with equal bilateral excursions. CARDIOVASCULAR: Regular rate and regular rhythm. Distal 2+ pulses. ABDOMEN: Tenderness along left upper quadrant. Increased abdominal distention. MUSCULOSKELETAL: No clubbing, cyanosis. NEURO: No focal or lateralizing signs. Cranial nerves 2 through 12 grossly within normal limits. PSYCH: Appropriate affect. Alert and oriented to person, place and time. SKIN: Good skin turgor. Well perfused. ASSESSMENT: 1. Small bowel obstruction 2. History of gastric bypass PLAN: 1. Her symptoms are worsening with features of bowel obstruction in the presence of gastric bypass 2. Recommend surgical intervention with diagnostic laparoscopy, lysis of adhesions, reduction of bowel obstruction Objective - Vital Signs Vital signs: Vital Signs Temp 98.4 F 10/24/20 07:47 Pulse 66 10/24/20 07:47 Resp 18 10/24/20 07:47 BP 142/83 10/24/20 07:47 Pulse Ox 100 10/24/20 07:47 Intake & Output 10/23/20 10/24/20 10/24/20 18:59 06:59 18:59 Intake Total 900 Balance 900 Intake: IV 100 Intake, IV Titration 800 Amount Sodium Chloride 0.9% 1, 800 000 ml @ 999 mls/hr IV . Q1H1M ONE Rx#:[id number] - Labs CBC & Chem 7: 10/23/20 05:01 10/23/20 05:01 Assessment and Plan (1) Bowel obstruction Current Visit: Yes Status: Acute Code(s): K56.609 - UNSP INTESTNL OBST, UNSP TO PARTIAL VERSUS COMPLETE OBST SNOMED Code(s): 93133853 (2) Peritoneal adhesions Current Visit: Yes Status: Acute Code(s): K66.0 - PERITONEAL ADHESIONS (POSTPROCEDURAL) (POSTINFECTION) SNOMED Code(s): 72582000 (3) Gastric bypass status for obesity Current Visit: Yes Status: Acute Code(s): Z98.84 - BARIATRIC SURGERY STATUS SNOMED Code(s): 076241226
[2020-10-24] MEDS ORDERED: ONDANSETRON 4 MG/2 ML VIAL IVP PRN (13:21)
[2020-10-24] MEDS ORDERED: ONDANSETRON 4 MG/2 ML VIAL ONE (19:29)
[2020-10-24] MEDS ORDERED: PROPOFOL 10 MG/ML 20 ML VIAL IV ONE (19:29)
[2020-10-24] MEDS ORDERED: SUCCINYLCHOLINE CHLORIDE 100 MG/5 ML SYR IV ONE (19:29)
[2020-10-24] MEDS ORDERED: LIDOCAINE 1% INJ 10MG/ML (20 ML MDV) ONE (19:29)
[2020-10-24] MEDS ORDERED: KETOROLAC 15 MG/ML 1 ML VIAL ONE (19:29)
[2020-10-24] MEDS ORDERED: MIDAZOLAM 2 MG/2 ML VIAL ONE (19:29)
[2020-10-24] MEDS ORDERED: GLYCOPYRROLATE 0.2 MG/ML 2 ML VIAL ONE (19:29)
[2020-10-24] MEDS ORDERED: NEOSTIGMINE 1 MG/ML 10 ML VIAL ONE (19:29)
[2020-10-24] MEDS ORDERED: fentaNYL (PF) 50 MCG/ML 2 ML AMP ONE (19:29)
[2020-10-24] MEDS ORDERED: DEXAMETHASONE SOD PHOSPHATE 10 MG/ML 1 ML VIAL ONE (19:29)
[2020-10-24] MEDS ORDERED: ROCURONIUM 10 MG/ML (5 ML VIAL) IV ONE (19:29)
[2020-10-24] MEDS ORDERED: SODIUM CHLORIDE 0.9% 100 ML with ceFAZolin 2,000 MG IV ONE ×4 (19:32)
[2020-10-24] MEDS ORDERED: IV FLUID CONTINUATION 1,000 ML IV ONE (19:32)
[2020-10-24] MEDS ORDERED: LIDOCAINE 2%-EPI 1:100,000 20 ML VIAL SQ ONE (19:56)
--- NOTE | 2020-10-24 21:37 | P.OP ---
Date of Procedure: 10/24/20 Description of Procedure: SURGEON: IRINA GOMEZ MD PREOPERATIVE DIAGNOSES: 1. Acute small bowel obstruction 2. History of multiple abdominal procedures 3. Status post gastric bypass for morbid obesity 4. Hypothyroidism 5. Intractable nausea and vomiting with left upper quadrant abdominal pain 6. Depressive disorder 7. Memory impairment 8. Panic disorder 9. Dysphagia 10. Bilateral neuropathy POSTOPERATIVE DIAGNOSES: 1. Acute small bowel obstruction due to peritoneal adhesions 2. History of multiple abdominal procedures 3. Status post gastric bypass for morbid obesity 4. Hypothyroidism 5. Intractable nausea and vomiting with left upper quadrant abdominal pain 6. Depressive disorder 7. Memory impairment 8. Panic disorder 9. Dysphagia 10. Bilateral neuropathy 11. Internal hernia with small bowel volvulus OPERATION: 1. Robotic-assisted da Demian Xi laparoscopic with extensive lysis of adhesions over 1 hr 2. Reduction of small bowel volvulus ESTIMATED BLOOD LOSS: 5 mL. SPECIMENS REMOVED: None. COMPLICATIONS: None. OPERATIVE FINDINGS: 1. No ventral hernias identified. 2. Adhesions along the epigastrium, left upper quarant, pelvis 3. Long mesentery of the small bowel with small bowel volvulus reduced 4. Complete scarring of [place] defect and jejunojejunostomy mesenteric defect 5. Adhesion of gastrojejunal anastomosis to the anterior abdominal wall released 6. Moderate gaseous distention of sigmoid colon, redundant with sigmoid 7. Normal terminal ileum and cecum unremarkable. 8. Jejunojejunostomy peritoneal left upper quadrant, location of abdominal pain with torsion and acute small bowel obstruction INDICATIONS: The patient is a 45-year-old female who presents with acute small bowel obstruction and left upper quadrant abdominal pain. Surgical intervention with diagnostic laparoscopy, lysis of adhesions were described. Informed consent was obtained. Robotic assisted laparoscopic approach was described. Benefits and risks of the procedure including but not limited to bleeding, infection, injury to the small bowel was described. Informed consent was obtained. DESCRIPTION OF PROCEDURE: Patient was brought to the operating room, placed in supine position. After general induction, the abdomen had been prepped and draped in standard sterile fashion. The robotic da Demian XI system was primed. After a timeout protocol was performed, the patient had been prepped and draped in standard sterile fashion. The robot was docked along the right lateral abdomen. The patient was repositioned in with right side up. Please note prior to docking of the robot; however, a 5 mm 0 degrees laparoscopic trocar entry was performed along the left upper quadrant. The abdomen was insufflated to 15 mmHg pressure which she tolerated well. Diagnostic laparoscopy was performed. Next, three 8 mm robotic ports were placed along the right lateral abdominal wall. The camera 8-mm port was maintained along mid-lateral abdomen. Please note that the ports were placed at least 10 to 15 cm away from the target anatomy. Instruments including graspers, scissors with cautery and vessel sealer were interchanged by the special education teaching assistant. I had sat at the console. No evidence of incisional hernia was identified. Dense intra-abdominal adhesions involving the epigastrium, left upper quadrant, right upper quadrant, pelvis was identified. Attention was initially brought to adhesions which were lysed of omentum to abdominal wall involving the bilateral upper abdomen and epigastrium. Dense omental adhesions involving the pelvis to uterus was also identified with internal hernia also sharply lysed using vessel sealer. Extensive lysis adhesion occurred for over one hour. Next, the small bowel from the dante limb to distal ileum was inspected. The small bowel was investigated from the terminal ileum to the ligament of Treitz with finding of redundant mesentery with active small bowel volvulus involving the jejunum to the jejunojejunostomy mesenteric defect. Abnormal adhesions to the jejunojejunostomy was identified and divided to the left upper abdominal wall causing acute bowel obstruction. The mesentery small bowel volvulus were reduced. Adhesions along the epigastrium linvolving the transverse colon to the dante limb with an active internal hernia was lysed using vessel sealer. No herniation of bowel was found along the [place] defect or jejunojejunostomy mesenteric defect. Adhesion of gastrojejunal anastomosis to the anterior abdominal wall was released. Moderate gaseous distention of sigmoid colon was identified with highly redundant colon. The terminal ileum and cecum was unremarkable. The small bowel was viable.The robot was undocked. All pneumoperitoneum instruments were evacuated from the abdominal cavity. The incisions were reapproximated using 4-0 Monocryl in an interrupted subcuticular fashion. Please note along the trocar sites, local anesthetic was placed as a field block prior to insertion of all instruments. Exofin was applied to the skin. At the end of the procedure needle, sponge, and instrument count had been verified correct by the surgical appliance fitter. The patient was transferred to postanesthesia care unit in stable condition.
[2020-10-24 21:39] VITALS: RESP 16
[2020-10-24] MEDS: ACETAMINOPHEN IV (For NPO) 1,000 MG in EMPTY BAG 1 BAG IVPB SCH (23:01)
[2020-10-24] MEDS: SODIUM CHLORIDE 0.9% 1,000 ML IV SCH (23:02)
[2020-10-24 23:13] LABS: Glucose,Whole Blood 114 mg/dL (75-99)
[2020-10-25] MEDS: ACETAMINOPHEN IV (For NPO) 1,000 MG in EMPTY BAG 1 BAG IVPB SCH (05:49)
[2020-10-25] MEDS: LEVOTHYROXINE 137 MCG TAB PO SCH (05:57)
[2020-10-25 06:56] LABS: Glucose,Whole Blood 85 mg/dL (75-99)
[2020-10-25] MEDS: MEMANTINE 10 MG TAB PO SCH (07:14)
[2020-10-25] MEDS: ARIPiprazole 10 MG TAB PO SCH (07:14)
[2020-10-25] MEDS: CITALOPRAM HYDROBROMIDE 20 MG TAB PO SCH (07:14)
[2020-10-25] MEDS: PANTOPRAZOLE 40 MG/10 ML VIAL IV SCH (07:14)
[2020-10-25 08:21] VITALS: BP 128/78; PULSE 65; TEMP 98.4
[2020-10-25] MEDS ORDERED: ENOXAPARIN 30 MG/0.3 ML SYRINGE SQ SCH (09:00)
[2020-10-25] MEDS: SODIUM CHLORIDE 0.9% 1,000 ML IV SCH (09:42)
[2020-10-25 11:22] LABS: Glucose,Whole Blood 90 mg/dL (75-99)
--- NOTE | 2020-10-25 11:43 | P.PN ---
Progress Note - Text Progress Note Date: 10/25/20 Patient feels well. She wants to go home. She has had flatus. She is tolerating her clear liquid diet. Status post laparoscopic lysis of adhesions. Patient discharged home. Referral next week.
--- NOTE | 2020-10-26 07:28 | P.CONS ---
History of Present Illness - Reason for Consult Consult date: 10/25/20 Medical management - Chief Complaint Abdominal pain - History of Present Illness 45-year-old female with a known history of a gastrojejunal stricture requiring EGD with dilation 3. Her last procedure was in December 2018. Patient has history of Mino-en-Y gastric bypass, bladder surgery, and cholecystectomy. She also has history of diet controlled diabetes mellitus, UTI with sepsis, sleep apnea, hypothyroidism and kidney stones. Patient was a transfer from [facility]. Patient presented with abdominal pain in the left upper quadrant. Patient describes the pain as stabbing and that the pain started yesterday. She's been having nausea and dry heaves. Patient continues to complain of difficulty swallowing especially solid foods. She states that she was supposed to see Dr. Guevara in the outpatient setting for an EGD with dilation. However she had been dealing with UTI and sepsis. Patient reports having bowel movements and flatus. She denies any fevers chills or sweats. Review of Systems REVIEW OF SYSTEMS: CONSTITUTIONAL: No fever, no malaise, no fatigue. HEENT: No recent visual problems or hearing problems. Denied any sore throat. CARDIOVASCULAR: No chest pain, orthopnea, PND, no palpitations, no syncope. PULMONARY: No shortness of breath, no cough, no hemoptysis. GASTROINTESTINAL: No diarrhea, no nausea, no vomiting, no abdominal pain. NEUROLOGICAL: No headaches, no weakness, no numbness. HEMATOLOGICAL: Denies any bleeding or petechiae. GENITOURINARY: Denies any burning micturition, frequency, or urgency. MUSCULOSKELETAL/RHEUMATOLOGICAL: Denies any joint pain, swelling, or any muscle pain. ENDOCRINE: Denies any polyuria or polydipsia. The rest of the 14-point review of systems is negative. Past Medical History Past Medical History: Diabetes Mellitus, Memory Impairment, Neurologic Disorder, Osteoarthritis (OA), Respiratory Disorder, Sleep Apnea/CPAP/BIPAP, Thyroid Disorder Additional Past Medical History / Comment(s): Takes Namenda, Ritalin to help focus D/T memory loss. Hx arrythmia & heart racing, kidney/uric acid stones, nichloe leg neuropathy, joint pain in nichole knees, DIET CONTROL DIABETES since Gastric Bypass. Recent bronchitis, on po AB Rx for 1 wk or so. Had recent EMG - pinched nerve in neck. Having prob eating, dysphagia. History of Any Multi-Drug Resistant Organisms: None Reported Past Surgical History: Bariatric Surgery, Bladder Surgery, Section, Cholecystectomy, Uterine Ablation Additional Past Surgical History / Comment(s): C-S x5, bladder surgery with mesh implant, renal stents, Mino-en-y sx 07/10/18, EGD WITH DILATATION x2 Past Anesthesia/Blood Transfusion Reactions: No Reported Reaction Additional Past Anesthesia/Blood Transfusion Reaction / Comm: recieved blood transfusion 2 units with no reactions Past Psychological History: Depression, Panic Disorder Smoking Status: Former smoker Past Alcohol Use History: None Reported Additional Past Alcohol Use History / Comment(s): QUIT SMOKING 2000 Past Drug Use History: None Reported Additional Drug Use History / Comment(s): Quit smoking in 2000 (had smoked about 1/2 pack /day x 8 years) - Past Family History Mother Family Medical History: Cancer, Coronary Artery Disease (CAD), Diabetes Mellitus, Deep Vein Thrombosis (DVT), Thyroid Disorder Additional Family Medical History / Comment(s): Type 2 Dm, Piagets Disease, Breast cancer survivor Sister(s) Family Medical History: Diabetes Mellitus, Thyroid Disorder Additional Family Medical History / Comment(s): sister #1: Type 2 DM hypothyroidism. Sister 2: Thyroid cancer (and hyperthyroidism) Father Family Medical History: Cancer, Coronary Artery Disease (CAD), Deep Vein Thrombosis (DVT), Pulmonary Embolus Additional Family Medical History / Comment(s): lung cancer survivor (mesothe lioma from asbestos lining ships in [place] Hx [place] blood clot. Medications and Allergies Home Medications Medication Instructions Recorded Confirmed Type Omeprazole [PriLOSEC] 20 mg PO AC-BRKFST 12/12/17 10/22/20 History Bariactive (Multivitamin) 1 tab PO BID 09/27/18 10/22/20 History Biotin (Unknown Dose) 1 tab PO DAILY 09/27/18 10/22/20 History Calcium, Vitamin D3, Magnesium 2 tab PO DAILY 09/27/18 10/22/20 History Cbd Oil 5 mg PO DAILY PRN 09/27/18 10/22/20 History Donepezil HCl [Aricept] 10 mg PO BID 09/27/18 10/22/20 History Iron With Vitamin C 54 mg PO BID 09/27/18 10/22/20 History Memantine [Namenda] 10 mg PO BID 09/27/18 10/22/20 History Vitamin B12 Nasal [place] 1 spray INHALATION Q7D 09/27/18 10/22/20 History ARIPiprazole [Abilify Oral 10 mg PO DAILY 10/22/20 10/22/20 History Solution] Citalopram Hydrobromide [CeleXA 20 mg PO DAILY 10/22/20 10/22/20 History Oral Soln] Daytrana 20mg-9hr Patch 1 patch TRANSDERM DAILY 10/22/20 10/22/20 History Estradiol Cream [Estrace Cream 1 gm VAGINAL DAILY 10/22/20 10/22/20 History 0.01%] Levothyroxine Sodium [Synthroid] 137 mcg PO DAILY 10/22/20 10/22/20 History Tetracycline HCl 500 mg PO BID 10/22/20 10/22/20 History Zinc 50 mg PO DAILY 10/22/20 10/22/20 History Acetaminophen Tab [Tylenol Tab] 1,000 mg PO Q6HR PRN #30 tablet 10/25/20 Rx Simethicone [Gas-X] 125 mg PO AC-TID PRN #20 cap 10/25/20 Rx Allergies Allergy/AdvReac Type Severity Reaction Status Date / Time codeine Allergy Rash/Hives Verified 10/22/20 22:29 levofloxacin [From Levaquin] Allergy Swelling Verified 10/22/20 22:29 morphine Allergy Rash/Hives Verified 10/22/20 22:29 Sulfa (Sulfonamide Allergy Anaphylaxis Verified 10/22/20 22:29 Antibiotics) sulfamethoxazole Allergy Rash/Hives Verified 10/22/20 22:29 [From Bactrim] trimethoprim [From Bactrim] Allergy Rash/Hives Verified 10/22/20 22:29 Physical Exam Vitals: Vital Signs Temp Pulse Resp BP Pulse Ox 10/25/20 08:00 98.4 F 65 16 128/78 99 10/25/20 00:20 83 129/81 10/25/20 00:05 75 126/83 10/24/20 23:50 74 127/83 10/24/20 23:35 73 136/84 10/24/20 23:20 72 131/83 10/24/20 23:05 81 126/85 10/24/20 22:50 66 138/82 10/24/20 22:35 98.1 F 79 127/82 98 10/24/20 22:10 73 16 128/71 98 10/24/20 21:55 69 16 130/76 98 10/24/20 21:40 69 16 139/76 99 10/24/20 21:25 98 F 75 16 126/69 97 10/24/20 19:02 98.3 F 71 18 144/80 100 10/24/20 14:00 98.5 F 88 18 121/78 98 Intake and Output 10/24/20 10/25/20 10/25/20 22:59 06:59 14:59 Intake Total 500 Output Total 5 Balance 495 Intake: IV 500 Output: Estimated Blood Loss 5 Other: # Voids 1 Weight 66.678 kg GENERAL: Well-developed in no acute distress. HEENT: No sclera icterus. Extraocular movements grossly intact. Moist buccal mucosa. Head is atraumatic, normocephalic. Hears conversational speech. No nasal drainage. NECK: Supple without lymphadenopathy. CHEST: Non-labored respirations and equal bilateral excursions. CARDIOVASCULAR: Palpable 2+ radial pulses. ABDOMEN: Soft. Nondistended. Left upper quadrant tenderness with palpation MUSCULOSKELETAL: No clubbing or cyanosis. NEUROLOGIC: No focal or lateralizing signs. Cranial nerves II through XII grossly intact. Results CBC & Chem 7: 10/23/20 05:01 10/23/20 05:01 Labs: Abnormal Lab Results - Last 24 Hours (Table) 10/24/20 Range/Units 23:11 POC Glucose (mg/dL) 114 H (75-99) mg/dL Assessment and Plan Assessment: 1. Dysphagia with intractable nausea and vomiting/history of gastric bypass - Patient is status post EGD; no evidence of severe anastomotic stricture or acute gastrojejunal ulceration; patient is recommended upper endoscopy as needed 2. Left upper quadrant abdominal pain/small bowel obstruction possibly secondary to peritoneal adhesions; patient reported worsening of left upper quadrant abdominal pain with no flatus or bowel movement consistent with bowel obstruction; recommended diagnostic laparoscopy with lysis of adhesions and reduction of bowel obstruction; patient underwent laparoscopic lysis of extensive adhesions and reduction of small bowel volvulus 3. Diabetes mellitus; by history; not on any hypoglycemic agents 4. Hypothyroidism; levothyroxin 137 MCG daily 5. Depression; continue with Celexa and home dose of Abilify DVT prophylaxis; SCDs CODE STATUS; full code
--- NOTE | 2020-10-27 10:41 | P.DS ---
Providers Date of admission: 10/24/20 12:11 Expected date of discharge: 10/25/20 Attending physician: Violet Barahona Consults: 10/24/20 21:44 Consult Physician Routine Consulting Provider: Virginia Turcios Consult Reason/Comments: Medical management Do you want consulting provider notified?: Yes, Notify in am Primary care physician: Beckie Fontenot - Discharge Diagnosis(es) (1) Bowel obstruction Status: Acute (2) Peritoneal adhesions Status: Acute (3) Gastric bypass status for obesity Status: Acute Hospital Course: POSTOPERATIVE DIAGNOSES: 1. Acute small bowel obstruction due to peritoneal adhesions 2. History of multiple abdominal procedures 3. Status post gastric bypass for morbid obesity 4. Hypothyroidism 5. Intractable nausea and vomiting with left upper quadrant abdominal pain 6. Depressive disorder 7. Memory impairment 8. Panic disorder 9. Dysphagia 10. Bilateral neuropathy 11. Internal hernia with small bowel volvulus INDICATIONS: The patient is a 45-year-old female who presented with small bowel obstruction including intractable nausea and vomiting. She underwent robotic-assisted lysis of adhesions with features of bowel obstruction all of which were reduced. Postoperatively, she was passing flatus and abdominal pain resolved. She was stable for discharge. Follow-up in 1 week reviewed. Procedures: OPERATION: 1. Robotic-assisted da Demian Xi laparoscopic with extensive lysis of adhesions over 1 hr 2. Reduction of small bowel volvulus ESTIMATED BLOOD LOSS: 5 mL. SPECIMENS REMOVED: None. COMPLICATIONS: None. OPERATIVE FINDINGS: 1. No ventral hernias identified. 2. Adhesions along the epigastrium, left upper quarant, pelvis 3. Long mesentery of the small bowel with small bowel volvulus reduced 4. Complete scarring of Copeland defect and jejunojejunostomy mesenteric defect 5. Adhesion of gastrojejunal anastomosis to the anterior abdominal wall released 6. Moderate gaseous distention of sigmoid colon, redundant with sigmoid 7. Normal terminal ileum and cecum unremarkable. 8. Jejunojejunostomy peritoneal left upper quadrant, location of abdominal pain with torsion and acute small bowel obstruction Patient Condition at Discharge: Good Plan - Discharge Summary Discharge Rx Participant: No New Discharge Prescriptions: New RX: Simethicone [Gas-X] 125 mg PO AC-TID PRN #20 cap PRN Reason: Pain Acetaminophen Tab [Tylenol Tab] 1,000 mg PO Q6HR PRN #30 tablet PRN Reason: Pain Continue RX: Omeprazole [PriLOSEC] 20 mg PO AC-BRKFST RX: Memantine [Namenda] 10 mg PO BID RX: Donepezil HCl [Aricept] 10 mg PO BID Vitamin B12 Nasal [place] 1 spray INHALATION Q7D Iron With Vitamin C 54 mg PO BID Cbd Oil 5 mg PO DAILY PRN PRN Reason: Pain Calcium, Vitamin D3, Magnesium 2 tab PO DAILY Biotin (Unknown Dose) 1 tab PO DAILY Bariactive (Multivitamin) 1 tab PO BID RX: Zinc 50 mg PO DAILY RX: Estradiol Cream [Estrace Cream 0.01%] 1 gm VAGINAL DAILY RX: Levothyroxine Sodium [Synthroid] 137 mcg PO DAILY RX: Citalopram Hydrobromide [CeleXA Oral Soln] 20 mg PO DAILY RX: Tetracycline HCl 500 mg PO BID Daytrana 20mg-9hr Patch 1 patch TRANSDERM DAILY RX: ARIPiprazole [Abilify Oral Solution] 10 mg PO DAILY Discharge Medication List RX: Omeprazole [PriLOSEC] 20 mg PO AC-BRKFST 12/12/17 [History] Bariactive (Multivitamin) 1 tab PO BID 09/27/18 [History] Biotin (Unknown Dose) 1 tab PO DAILY 09/27/18 [History] Calcium, Vitamin D3, Magnesium 2 tab PO DAILY 09/27/18 [History] Cbd Oil 5 mg PO DAILY PRN 09/27/18 [History] Iron With Vitamin C 54 mg PO BID 09/27/18 [History] RX: Donepezil HCl [Aricept] 10 mg PO BID 09/27/18 [History] RX: Memantine [Namenda] 10 mg PO BID 09/27/18 [History] Vitamin B12 Nasal [place] 1 spray INHALATION Q7D 09/27/18 [History] Daytrana 20mg-9hr Patch 1 patch TRANSDERM DAILY 10/22/20 [History] RX: ARIPiprazole [Abilify Oral Solution] 10 mg PO DAILY 10/22/20 [History] RX: Citalopram Hydrobromide [CeleXA Oral Soln] 20 mg PO DAILY 10/22/20 [History] RX: Estradiol Cream [Estrace Cream 0.01%] 1 gm VAGINAL DAILY 10/22/20 [History] RX: Levothyroxine Sodium [Synthroid] 137 mcg PO DAILY 10/22/20 [History] RX: Tetracycline HCl 500 mg PO BID 10/22/20 [History] RX: Zinc 50 mg PO DAILY 10/22/20 [History] Acetaminophen Tab [Tylenol Tab] 1,000 mg PO Q6HR PRN #30 tablet 10/25/20 [Rx] RX: Simethicone [Gas-X] 125 mg PO AC-TID PRN #20 cap 10/25/20 [Rx] Follow up Appointment(s)/Referral(s): Beckie Fontenot MD [Primary Care Provider] - 1-2 days Bariatric [place], [place] [NON-STAFF] - 10/29/20 Patient Instructions/Handouts: Lysis of Abdominal Adhesions (IP), Bowel Obstruction (DC) Activity/Diet/Wound Care/Special Instructions: 1. [facility] will resume services at discharge. Please call [phone] with any questions regarding your home care services. 2. [facility] will continue to supply your home infusions of normal saline at discharge. Please call [phone] with any questions regarding your infusion services. No lifting over 10 pounds in 2 weeks until November 07. May shower. No bath tub soaks for two weeks until November 07 Diet as tolerated. Use Tylenol, simethicone scheduled for the next 24-48 hours for best pain relief. Use ice along incisions for today to prevent swelling. Discharge Disposition: HOME SELF-CARE
== END 2020-10-25 12:36 | disposition home or self-care (01) | DRG 328 ==
LOC: EC 21:51 → SUPCPDRO 21:51 → 4SSUR 23:54 → OBSVTOIN 10-24 12:11
PROVIDERS: ADMIT Surgery Plastic and Reconstructive Surgery; ATTEND Surgery Plastic and Reconstructive Surgery
PROC: 0DJ08ZZ Inspection of Upper Intestinal Tract, Via Natural or Artificial Opening Endoscopic (ICD-10-PCS; 2020-10-23)
PROC: 8E0W4CZ Robotic Assisted Procedure of Trunk Region, Percutaneous Endoscopic Approach (ICD-10-PCS; principal; 2020-10-24 17:25)
PROC: 0DN63ZZ Release Stomach, Percutaneous Approach (ICD-10-PCS; principal; 2020-10-24 17:25)
PROC: 0DNW3ZZ Release Peritoneum, Percutaneous Approach (ICD-10-PCS; principal; 2020-10-24 17:25)
DX: K56.50 Intestinal adhesions [bands], unspecified as to partial versus complete obstruction (principal); K56.2 Volvulus; E03.9 Hypothyroidism, unspecified; E11.41 Type 2 diabetes mellitus with diabetic mononeuropathy; E55.9 Vitamin D deficiency, unspecified; E87.6 Hypokalemia; F32.9 Major depressive disorder, single episode, unspecified; F41.0 Panic disorder [episodic paroxysmal anxiety]; G47.33 Obstructive sleep apnea (adult) (pediatric); G57.93 Unspecified mononeuropathy of bilateral lower limbs; I11.9 Hypertensive heart disease without heart failure; M25.561 Pain in right knee; Z20.822 Contact with and (suspected) exposure to COVID-19; K21.9 Gastro-esophageal reflux disease without esophagitis; R13.10 Dysphagia, unspecified; N73.6 Female pelvic peritoneal adhesions (postinfective); M17.0 Bilateral primary osteoarthritis of knee; M47.9 Spondylosis, unspecified; M72.2 Plantar fascial fibromatosis; F98.8 Other specified behavioral and emotional disorders with onset usually occurring in childhood and adolescence; K46.9 Unspecified abdominal hernia without obstruction or gangrene; K58.9 Irritable bowel syndrome, unspecified; M19.90 Unspecified osteoarthritis, unspecified site; M25.562 Pain in left knee; Z98.84 Bariatric surgery status; Z90.49 Acquired absence of other specified parts of digestive tract; Z87.891 Personal history of nicotine dependence; Z87.442 Personal history of urinary calculi; Z79.899 Other long term (current) drug therapy; Z79.890 Hormone replacement therapy; Z87.11 Personal history of peptic ulcer disease; Z83.3 Family history of diabetes mellitus; Z82.49 Family history of ischemic heart disease and other diseases of the circulatory system; Z80.8 Family history of malignant neoplasm of other organs or systems
CPT/HCPCS: 43235; 80053; 83690; 83735; 84100; 84703; 85025; 86850; 86900; 86901; 87635; 99285

== ENCOUNTER → 2021-04-15 | Outpatient (CLI) | payer BC, MEDICARE ==
--- NOTE | 2021-04-15 17:22 | P.BASOAP ---
Subjective Progress Note Date: 04/15/21 DATE OF SERVICE: 04/15/2021 CHIEF COMPLAINT: Status post gastric bypass HISTORY OF PRESENT ILLNESS: Naz Christine is a 45-year-old female who is status post gastric bypass, 07/10/2018. She is 3 years out. She reports new moderate severe gastroesophageal reflux disease with atypical chest pain for over 1 month. She reports lower abdominal pain. She reports left upper quadrant abdominal pain. She had lysis of adhesions performed 6 months ago and reports similar symptoms are severe. She had computed tomography scan done at [facility]. She reports having diverticulosis and umbilical hernia and hiatal hernia. She has multiple ALLERGIES. At height of 5 feet 4 inches, his ideal body weight is 144 pounds. Her highest personal weight was 296 pounds. Her body mass index was 50.9. She comes in 150 pounds from 153 pounds, 6 months ago. She has lost 3 pounds in 6 months. Life time weight loss of 146 pounds. Her percent lifetime excess weight loss is 96 %. Her body mass index is 25.7. She is 6 pounds overweight. PAST MEDICAL HISTORY: 1. Morbid obesity due to excess calories 2. Body mass index prior 50.9. 3. Osteoarthritis of the knees. 4. Plantar fasciitis 5. Osteoarthritis of the lower back. 6. Gastroesophageal reflux disease 7. Irritable bowel syndrome 8. Obstructive sleep apnea 9. Kidney stones 10. Diabetes type 2 11. Hypothyroidism 12. Attention deficit disorder 13. Depression 14. Bilateral lower extremity neuropathy 15. Memory disorder 16. Hypertensive heart disease. PAST SURGICAL HISTORY: 1. section 2. Cholecystectomy 3. Renal stents 4. Bladder surgery 5. Gastric bypass 6. Lysis of adhesions HOME MEDICATIONS: Home Medications Medication Instructions Recorded Confirmed Bariactive (Multivitamin) 1 tab PO BID 09/27/18 04/17/21 Biotin (Unknown Dose) 1 tab PO DAILY 09/27/18 04/17/21 Calcium, Vitamin D3, Magnesium 2 tab PO DAILY 09/27/18 04/17/21 Cbd Oil 5 mg PO DAILY PRN 09/27/18 04/17/21 Donepezil HCl [Aricept] 10 mg PO BID 09/27/18 04/17/21 Iron With Vitamin C 54 mg PO BID 09/27/18 04/17/21 Memantine [Namenda] 10 mg PO BID 09/27/18 04/17/21 Vitamin B12 Nasal [place] 1 spray INHALATION Q7D 09/27/18 04/17/21 ARIPiprazole [Abilify Oral 10 mg PO DAILY 10/22/20 04/17/21 Solution] Citalopram Hydrobromide [CeleXA 20 mg PO DAILY 10/22/20 04/17/21 Oral Soln] Daytrana 20mg-9hr Patch 1 patch TRANSDERM DAILY 10/22/20 04/17/21 Estradiol Cream [Estrace Cream 1 gm VAGINAL DAILY 10/22/20 04/17/21 0.01%] Levothyroxine Sodium [Synthroid] 137 mcg PO DAILY 10/22/20 04/17/21 Tetracycline HCl 500 mg PO BID 10/22/20 04/17/21 Zinc 50 mg PO DAILY 10/22/20 04/17/21 Previous Rx's Medication Instructions Recorded Acetaminophen Tab [Tylenol Tab] 1,000 mg PO Q6HR PRN #30 tablet 10/25/20 Simethicone [Gas-X] 125 mg PO AC-TID PRN #20 cap 10/25/20 ALLERGIES: Allergies Allergy/AdvReac Type Severity Reaction Status Date / Time codeine Allergy Rash/Hives Verified 10/29/20 14:43 levofloxacin [From Levaquin] Allergy Swelling Verified 10/29/20 14:43 morphine Allergy Rash/Hives Verified 10/29/20 14:43 Sulfa (Sulfonamide Allergy Anaphylaxis Verified 10/29/20 14:43 Antibiotics) sulfamethoxazole Allergy Rash/Hives Verified 10/29/20 14:43 [From Bactrim] trimethoprim [From Bactrim] Allergy Rash/Hives Verified 10/29/20 14:43 SOCIAL HISTORY: No active tobacco use. Former tobacco use. FAMILY HISTORY: No family history of ulcerative colitis disease or Crohn's disease. Family history of morbid obesity. No reports of stomach or esophageal cancer. Family history of diabetes type 2. She denies stomach or esophageal cancer. No personal or family history of inflammatory bowel disease. She has lupus in her niece. Thyroid cancer. REVIEW OF ORGAN SYSTEMS: CONSTITUTIONAL: At height of 5 feet 4 inches, ideal body weight is 144 pounds. Her highest personal weight was 296 pounds. Her body mass index was 50.9. HEENT: Denies any active troubles with vision or hearing. No troubles with swallowing. ENDOCRINE: Has diabetes. Has hypothyroidism. CARDIOVASCULAR: No reports of palpitations or heart attacks or chest pain. RESPIRATORY: Has daytime somnolence. No asthma. Has sleep apnea improved GI: Denies any bright red blood per rectum. No diarrhea or constipation. MUSCULOSKELETAL: Has lower back pain and joint pain. Has osteoarthritis of the knees. NEURO: No headaches. No seizure disorders. PSYCH: Has depression. No suicidal ideation. RHEUMATOLOGIC: No lupus. No rheumatoid arthritis. HEMATOLOGIC: Denies any abnormal bleeding or bruising. No personal history of DVTs. SKIN: No rash. No skin cancer. PHYSICAL EXAM: VITAL SIGNS: Height 5 foot 4 inches, weight 150 pounds. BMI 25.7 Vital Signs Temp 98 F 04/15/21 15:58 Pulse 75 04/15/21 15:58 Resp BP 125/78 04/15/21 15:58 Pulse Ox GENERAL: Well-developed in no acute distress. HEENT: No scleral icterus. Extraocular movements grossly intact. Hears conversational speech. No nasal drainage. NECK: Supple without lymphadenopathy. CHEST: Nonlabored respirations with equal bilateral excursions. CARDIOVASCULAR: Regular rate and regular rhythm. Distal 2+ pulses. ABDOMEN: Nondistended. Nontendered MUSCULOSKELETAL: No clubbing, cyanosis. NEURO: No focal or lateralizing signs. Cranial nerves 2 through 12 grossly within normal limits. PSYCH: Appropriate affect. Alert and oriented to person, place and time. SKIN: Good skin turgor. Well perfused. ASSESSMENT: 1. Morbid obesity due to excess calories. 2. Body mass index prior 50.9 down to 25.7 3. Osteoarthritis of the knees. 4. Plantar fasciitis 5. Osteoarthritis of the lower back. 6. Gastroesophageal reflux disease 7. Irritable bowel syndrome 8. Obstructive sleep apnea 9. Kidney stones 10. Diabetes type 2 11. Hypothyroidism 12. Attention deficit disorder 13. Depression 14. Bilateral lower extremity neuropathy 15. Memory disorder 16. Hypertensive heart disease 17. Vitamin D deficiency 18. Hypokalemia, resolved 19. Status post gastric bypass 20. Dietary surveillance and counseling 21. Left venous thrombosis of the arm 22. Gastrojejunal ulcer 23. Dysphagia 24. Panniculitis 25. Small bowel obstruction 26. Kidney stones PLAN: 1. She has new esophageal reflux disease with atypical chest pain. Recommend upper endoscopy with dilation for which she is high risk for perforation. 2. Recommend computed tomography scan imaging done at [facility]. She reports having diverticulosis, umbilical hernia and hiatal hernia. Recommend copy of recent imaging. 3. Also recommend referral to [facility] as she has multiple ALLERGIES. Assessment/Plan Plan: Date: Initial Weight: 114.714 kg Initial BMI: Current Weight: Current BMI: Type of Surgery: Total Volume in Band: Previous Volume: Volume Removed: Volume Added: Band Size:
[2021-04-16 14:49] VITALS: BP 125/78; PULSE 75; TEMP 98; BMI 25.7
== END ==
LOC: BARWHC3 15:56
PROVIDERS: ATTEND Surgery Plastic and Reconstructive Surgery
DX: E66.01 Morbid (severe) obesity due to excess calories (principal); Z68.25 Body mass index [BMI] 25.0-25.9, adult; M17.0 Bilateral primary osteoarthritis of knee; K21.9 Gastro-esophageal reflux disease without esophagitis; M72.2 Plantar fascial fibromatosis; K58.9 Irritable bowel syndrome, unspecified; G47.33 Obstructive sleep apnea (adult) (pediatric); N20.0 Calculus of kidney; E03.9 Hypothyroidism, unspecified; F90.9 Attention-deficit hyperactivity disorder, unspecified type; F32.A Depression, unspecified; E11.40 Type 2 diabetes mellitus with diabetic neuropathy, unspecified; R41.3 Other amnesia; I11.9 Hypertensive heart disease without heart failure; E55.9 Vitamin D deficiency, unspecified; E87.6 Hypokalemia; Z98.84 Bariatric surgery status; Z71.3 Dietary counseling and surveillance; R13.10 Dysphagia, unspecified; M79.3 Panniculitis, unspecified; I82.622 Acute embolism and thrombosis of deep veins of left upper extremity; K28.9 Gastrojejunal ulcer, unspecified as acute or chronic, without hemorrhage or perforation; K56.699 Other intestinal obstruction unspecified as to partial versus complete obstruction; Z88.5 Allergy status to narcotic agent; Z88.1 Allergy status to other antibiotic agents; Z88.2 Allergy status to sulfonamides; Z87.891 Personal history of nicotine dependence
CPT/HCPCS: 99211